=== PATIENT | female | born 1990 | race Caucasian/White ===

== ENCOUNTER 2016-07-17 12:43 | Emergency (ER) | payer OTHER, MEDICAID ==
[~2016-07-17] VITALS: Ht 152.4 cm; Wt 63.5 kg
[~2016-07-17 12:43] MED LIST: NITR-65 PO
--- OUTSIDE RECORDS SUMMARY | 2016-07-17 12:48 | XMS REPORT | Continuity of Care Document ---
Author Author [facility] Organization [facility] Address [facility] [address] [place] [address] Phone Unavailable Support Name Relationship Address Phone SHAHANA RODAS MD Caregiver [phone] [address] SAMANTHA NINA/ALEC HENDRIX Caregiver [address] [place] [address] ALLISON WOLFE Next Of Kin [address] [place] [address] CELL Insurance Providers Payer Name Policy Number Subscriber Name Relationship Provider Care Network [id number] Allison Wolfe 21 Child Advance Directives Directive Response Recorded Date/Time Do you have an Advanced Directive? No 02/15/00 2:34am Advance Directives No 06/10/12 1:51pm Living Will No 06/10/12 1:51pm Health Care Proxy No 05/30/14 7:50pm Power of Aircraft Pilot for Health Care No 06/10/12 1:51pm Organ, Tissue, or Eye Donor No 06/10/12 1:51pm Do you have a signed organ donor card? No 02/15/00 2:34am Problems Medical Problems Problem Onset Date Status boxer's fracture Unknown Active Sinusitis Unknown Active Medications Medication Dose Route Sig Days/Qty Instructions Order Date Discontinued Date Status [ control] 06/10/12 Active Acetaminophen 500 Mg PO 06/10/12 Active Naproxen Mg PO 06/10/12 Active Acetaminophen/Hydrocodone Bitart (Lortab 5-325*) 1 Each PO EVERY 6 HRS NEEDED FOR PAIN 15 Qty 07/20/13 Active Social History No social history. Hospital Discharge Instructions No hospital discharge instructions. Plan of Care No plan of care. Functional Status Query Response Date Recorded Patient Behavior Cooperative Appropriate May 30, 2014 7:55pm Allergies, Adverse Reactions, Alerts Allergen Type Severity Reaction Status Last Updated NO KNOWN DRUG ALLERGIES Allergy Unknown Active 07/20/13 Immunizations Name Given Type Hx Diphtheria, Pertussis, Tetanus Vaccination Up To Date Historical Hx Influenza Vaccination Yes Historical Hx Pneumococcal Vaccination Yes Historical Vital Signs Acute Vital Signs Vital Response Date/Time Temperature (Fahrenheit) 100.4 degrees F (97.6 - 99.5) Temperature Source Temporal Artery Pulse Rate (adult) 87 bpm (60 - 90) Respiratory Rate 20 bpm (12 - 24) Blood Pressure 104/65 mm Hg O2 Sat by Pulse Oximetry 98 % (95 - 100) Oxygen Delivery Method Pain Description Height 5 ft 0 in Weight 130 lb Body Mass Index 25.0 kg/m^2 Results Test Source Date Result Interp. Ref. Range Comments Influenza Type B (Rapid) May 30, 2014 8:49pm Negative - Influenza Type A (Rapid) May 30, 2014 8:49pm Negative - Alanine Aminotransferase (ALT/SGPT) September 15, 2001 8:34am 35 U/L N 30- 65 Albumin September 15, 2001 8:34am 4.6 gm/dL N 3.4-5.0 Aspartate Amino Transf (AST/SGOT) September 15, 2001 8:34am 31 U/L N 15-37 Barbiturates April 22, 2008 10:15am Negative - Basophils # (Auto) June 10, 2012 2:25pm 0.1 K/uL N 0.0-0.2 Basophils (%) (Auto) June 10, 2012 2:25pm 0.9 % N 0.0-1.0 Blood Urea Nitrogen June 10, 2012 2:25pm 9 mg/dL N 7-18 Calcium Level June 10, 2012 2:25pm 9.1 mg/dL N 8.8-10.5 Carbon Dioxide Level June 10, 2012 2:25pm 24.9 mEq/L N 21-32 Chloride Level June 10, 2012 2:25pm 101 mEq/L N 98-107 Creatinine June 10, 2012 2:25pm 1.1 mg/dL H 0.6-1.0 Eosinophils # (Auto) June 10, 2012 2:25pm 0.2 K/uL N 0.0-0.7 Eosinophils (%) (Auto) June 10, 2012 2:25pm 2.8 % H 0.0-2.0 HCG Beta Subunit August 29, 2012 12:18pm 16 IU/ML - 9-130 mIU/ml INDICATES 3-4 WEEKS POST LMP75-2,600 mIU/ml INDICATES 4-5 WEEKS POST LMP 850-20,800 mIU/ml INDICATES 5-6 WEEKS POST LMP 4,000-100,200 mIU/ml INDICATES 6-7 WEEKS POST LMP 11,500-289,000 mIU/ml INDICATES 7-12 WEEKS POST LMP 18,000-137,000 mIU/ml INDICATES 12-16 WEEKS POST LMP 1,400-53,000 mIU/ml INDICATES 16-29 WEEKS POST LMP (2ND TRIMESTER) 940-60,000 mIU/ML INDICATES 29-41 WEEKS (3RD TRIMESTER) Hematocrit June 10, 2012 2:25pm 37.5 % N 37.0-47.0 Hemoglobin June 10, 2012 2:25pm 13.0 gm/dL N 12.0-16.0 Human Chorionic Gonadotropin, Qual September 13, 2012 2:56pm Negative - Lymphocytes # (Auto) June 10, 2012 2:25pm 1.1 K/uL L 1.2-3.4 Lymphocytes (%) (Auto) June 10, 2012 2:25pm 17.7 % L 20.5-51.1 Lymphocytes (Manual) February 15, 2000 2:40am 32.0 % N 25-40 Mean Corpuscular Hemoglobin June 10, 2012 2:25pm 27.3 pg N 27.0- 31.0 Mean Corpuscular Hemoglobin Concent June 10, 2012 2:25pm 34.6 g/dL N 30.0-37.0 Mean Corpuscular Volume June 10, 2012 2:25pm 79.0 fL L 81.0-99.0 Mean Platelet Volume June 10, 2012 2:25pm 8.6 fL N 7.4-10.4 Monocytes # (Auto) June 10, 2012 2:25pm 0.2 K/uL N 0.1-0.6 Monocytes (%) (Auto) June 10, 2012 2:25pm 3.6 % N 1.7-9.3 Monocytes (Manual) February 15, 2000 2:40am 8.0 % N 4-10 Neutrophils February 15, 2000 2:40am 60.0 % N 50-65 Neutrophils # (Auto) June 10, 2012 2:25pm 4.6 K/uL N 2.0-6.9 Neutrophils (%) (Auto) June 10, 2012 2:25pm 75.1 % N 42.2-75.2 Phenobarbital Level February 28, 2009 12:02pm 2 ug/mL L - Detection Limit=2 <2 indicates None Detected Performed At: [facility] [address], [place] [id number] Karolina Cohen MD Phone: [phone] Platelet Count June 10, 2012 2:25pm 261 K/uL N 130-400 Potassium Level June 10, 2012 2:25pm 3.7 mEq/L N 3.5-5.1 Primidone (Mysoline) Level February 28, 2009 12:02pm 3.3 ug/mL L - Detection Limit=0.3 <0.3 indicates None Detected Random Glucose June 10, 2012 2:25pm 167 mg/dL H 70-110 Red Blood Count June 10, 2012 2:25pm 4.75 M/uL N 4.20-5.40 Red Cell Distribution Width June 10, 2012 2:25pm 10.4 % L 11.5-14.5 Sodium Level June 10, 2012 2:25pm 132 mEq/L L 136-145 Thyroid Stimulating Hormone (TSH) September 15, 2001 8:34am 1.36 uIU/ml N 0.47-5.01 Thyroxine (T4) September 15, 2001 8:34am 7.8 UG/DL N 4.8-13.9 Total Alkaline Phosphatase September 15, 2001 8:34am 259 U/L H 50-136 Total Bilirubin September 15, 2001 8:34am 0.38 mg/dL N 0.00-1.00 Total Protein September 15, 2001 8:34am 7.3 gm/dL N 6.4-8.2 Urine Amorphous Sediment April 22, 2008 12:00am Too numerous to cnt. - Urine Amphetamines Screen April 22, 2008 10:15am Negative - Urine Appearance June 10, 2012 3:29pm Clear - Urine Bacteria June 10, 2012 3:29pm Trace H - Urine Benzodiazepines Screen April 22, 2008 10:15am Negative - Urine Bilirubin June 10, 2012 3:29pm Negative - Urine Cocaine Level April 22, 2008 10:15am Negative - Urine Color June 10, 2012 3:29pm Light yellow - Urine Glucose (UA) June 10, 2012 3:29pm Negative mg/dL - Urine HCG, Qualitative June 10, 2012 3:29pm Positive - Urine Ketones June 10, 2012 3:29pm Negative mg/dL - Urine Leukocyte Esterase June 10, 2012 3:29pm Negative - Urine Marijuana (THC) Screen April 22, 2008 10:15am Negative - Urine Nitrate June 10, 2012 3:29pm Negative - Urine Occult Blood June 10, 2012 3:29pm Negative - Urine Opiates Screen April 22, 2008 10:15am Negative - Urine Protein June 10, 2012 3:29pm Negative mg/dL - Urine RBC June 10, 2012 3:29pm Negative /hpf - Urine Specific [place] June 10, 2012 3:29pm 1.010 N 1.010-1.025 Urine Squamous Epithelial Cells June 10, 2012 3:29pm Rare /hpf - Urine Urobilinogen June 10, 2012 3:29pm 0.2 E.U./dL - Urine WBC June 10, 2012 3:29pm 0-1 /hpf - Urine pH June 10, 2012 3:29pm 7.0 - White Blood Count June 10, 2012 2:25pm 6.1 K/uL N 4.8-10.8 Lab Scanned Report July 26, 2010 8:26am LABORATORY RESULTS - SCANNED [id number] - Blood Culture Blood February 15, 2000 2:30am NO GROWTH AFTER 5 DAYS Procedures No known history of procedures. Encounters Encounter Location Date/Time Departed Emergency Room [facility] 05/30/14 7:48pm Recent Diagnosis
[2016-07-17] MEDS ORDERED: NS IV 1000 ML 1,000 ML IV ONE (13:06)
[2016-07-17] MEDS ORDERED: ONDANSETRON 4 MG/2 ML (SDV) Z0FRAN IVP ONE (13:15)
[2016-07-17 13:29] LABS: BASOPHILS % (AUTO) 0 % (0-10); EOSINOPHILS % (AUTO) 0 % (0-10); LYMPHOCYTES # (AUTO) 0.8 X 10^3 (1.0-4.0); LYMPHOCYTES % (AUTO) 7 % (12-44); MEAN CORPUSCULAR HEMOGLOBIN 28 PG (25-34); MEAN CORPUSCULAR HGB CONC 35 G/DL (32-36); MEAN CORPUSCULAR VOLUME 80 FL (80-99); MEAN PLATELET VOLUME 10.8 FL (7.4-10.4); MONOCYTES # (AUTO) 0.4 X 10^3 (0.0-1.0); MONOCYTES % (AUTO) 3 % (0-12); NEUTROPHILS # (AUTO) 11.1 X 10^3 (1.8-7.8); NEUTROPHILS % (AUTO) 90 % (42-75); PLATELET COUNT 288 10^3/uL (130-400); RED BLOOD COUNT 5.31 10^6/uL (4.35-5.85); WHITE BLOOD COUNT 12.3 10^3/uL (4.3-11.0)
[2016-07-17] MEDS ORDERED: NS IV 1000 ML 1,000 ML IV SCH (13:30)
[2016-07-17] MEDS: fentaNYL INJECTION 100 MCG/2 ML AMP IVP PRN ×2 (13:34→15:12)
[2016-07-17 13:46] LABS: ALANINE AMINOTRANSFERASE 16 U/L (0-55); ALBUMIN 4.9 G/DL (3.2-4.5); ANION GAP 16 MMOL/L (5-14); ASPARTATE AMINO TRANSFERASE 21 U/L (5-34); BILIRUBIN,TOTAL 0.7 MG/DL (0.1-1.0); BLOOD UREA NITROGEN 9 MG/DL (7-18); BUN/CREATININE RATIO 11; CALCIUM 10.2 MG/DL (8.5-10.1); CARBON DIOXIDE 20 MMOL/L (21-32); CHLORIDE 106 MMOL/L (98-107); CREATININE SERUM 0.81 MG/DL (0.60-1.30); GFR ESTIMATED > 60; GLUCOSE 98 MG/DL (70-105); LIPASE 28 U/L (8-78); POTASSIUM 4.3 MMOL/L (3.6-5.0); SODIUM 142 MMOL/L (135-145); TOTAL PROTEIN 8.3 G/DL (6.4-8.2)
[2016-07-17 13:47] LABS: NEUTROPHILS % (MANUAL) 87 %
[2016-07-17 13:48] LABS: BAND NEUTROPHILS 2 %; LYMPHOCYTES % (MANUAL) 6 %
[2016-07-17] MEDS ORDERED: fentaNYL INJECTION 100 MCG/2 ML AMP IVP ONE (15:00)
--- NOTE | 2016-07-17 15:16 | ED Abdominal Pain ---
General Chief Complaint: Abdominal/GI Problems Stated Complaint: V/D Nursing Triage Note: Pt reports abd pain and n/v/d since 0400. Sepsis Screen: No Definite Risk Source of Information: Patient, Family Exam Limitations: No Limitations History of Present Illness Time Seen By Provider: 15:13 Initial Comments This 26-year-old white female presents with nausea vomiting diarrhea and diffuse abdominal pain that began approximately 4 o'clock this morning (12 hours ago). The patient had ingested questionable food at a restaurant. The patient has had no associated headache, stiff neck, sore throat, productive cough or shortness of breath, palpitations or chest pain. The patient has had no similar episodes in the past. The patient has not had close contacts with a viral illness recently. Allergies and Home Medications Allergies Coded Allergies: No Known Drug Allergies (Unverified , 04/17/15) Home Medications No Active Prescriptions or Reported Meds Review of Systems Constitutional: chills malaise EENTM: No Blurred Vision Respiratory: Denies Cough Gastrointestinal: Abdominal Pain Diarrhea (diffuse and poorly localized diarrhea without blood) Nausea (without blood) Vomiting Genitourinary: Denies Burning, Denies Frequency Musculoskeletal: No back pain Skin: No change in color, No rash Psychiatric/Neurological: No Symptoms Reported Endocrine: No Symptoms Reported Hematologic/Lymphatic: No Symptoms Reported Past Qyjtzja-Pixrez-Djweua Hx Patient Social History Alcohol Use: Denies Use Recreational Drug Use: No Smoking Status: Never a Smoker Recent Foreign Travel: No Contact w/Someone Who Travel: No Recent Infectious Disease Expo: No Recent Hopitalizations: No Immunizations Up To Date Tetanus Booster (TDap): Unknown Seasonal Allergies Seasonal Allergies: No Surgeries HX Surgeries: Yes (D&C 06/2014, R HAND FX/ORIF, BONE SPURS REMOVED FROM ANKLE, WISDOM TEETH) Surgeries: Abdominal, Gallbladder, Orthopedic Respiratory Hx Respiratory Disorders: No Cardiovascular Hx Cardiac Disorders: No Neurological Hx Neurological Disorders: No Reproductive System Hx Reproductive Disorders: No Sexually Transmitted Disease: No HIV/AIDS: No Genitourinary Hx Genitourinary Disorders: No Genitourinary Disorders: Bladder Infection Gastrointestinal Hx Gastrointestinal Disorders: No Musculoskeletal Hx Musculoskeletal Disorders: No Endocrine Hx Endocrine Disorders: No HEENT HX ENT Disorders: No Loss of Vision: Denies Hearing Impairment: Denies Cancer Hx Cancer: No Psychosocial Hx Psychiatric Problems: No Integumentary HX Skin/Integumentary Disorder: No Blood Transfusions Hx Blood Disorders: No Reviewed Nursing Assessment Reviewed/Agree w Nursing PMH: Yes Family Medical History Significant Family History: No Pertinent Family Hx Physical Exam Vital Signs VS - Last 72 Hours, by Label 07/17/16 12:54 Temp 98.3 Pulse 67 Resp 18 B/P 137/101 Pulse Ox 96 O2 Delivery Room Air Capillary Refill : Less Than 3 Seconds General Appearance: WD/WN mild distress HEENT: normal ENT inspection Neck: normal inspection Respiratory: chest non-tender lungs clear normal breath sounds Cardiovascular: regular rate, rhythm Extremities: normal range of motion normal inspection Back: normal inspection Neurologic/Psychiatric: no motor/sensory deficits alert Skin: normal color warm/dry Progress/Results/Core Measures Results/Orders Lab Results Laboratory Tests Test 07/17/16 13:20 Range/Units Alanine Aminotransferase (ALT/SGPT) 16 0-55 U/L Albumin 4.9 H 3.2-4.5 G/DL Alkaline Phosphatase 119 40-136 U/L Anion Gap 16 H 5-14 MMOL/L Aspartate Amino Transf (AST/SGOT) 21 5-34 U/L BUN/Creatinine Ratio 11 Band Neutrophils 2 % Basophils # (Auto) 0.0 0.0-0.1 10^3/uL Basophils (%) (Auto) 0 0-10 % Blood Morphology Comment NORMAL Blood Urea Nitrogen 9 7-18 MG/DL Calcium Level 10.2 H 8.5-10.1 MG/DL Carbon Dioxide Level 20 L 21-32 MMOL/L Chloride Level 106 98-107 MMOL/L Creatinine 0.81 0.60-1.30 MG/DL Dohle Bodies SLIGHT Eosinophils # (Auto) 0.0 0.0-0.3 10^3/uL Eosinophils (%) (Auto) 0 0-10 % Estimat Glomerular Filtration Rate > 60 Glucose Level 98 70-105 MG/DL Hematocrit 43 35-52 % Hemoglobin 15.1 11.5-16.0 G/DL Hypersegmented Neutrophils SLIGHT Lipase 28 8-78 U/L Lymphocytes # (Auto) 0.8 L 1.0-4.0 X 10^3 Lymphocytes % (Manual) 6 % Lymphocytes (%) (Auto) 7 L 12-44 % Mean Corpuscular Hemoglobin 28 25-34 PG Mean Corpuscular Hemoglobin Concent 35 32-36 G/DL Mean Corpuscular Volume 80 80-99 FL Mean Platelet Volume 10.8 H 7.4-10.4 FL Monocytes # (Auto) 0.4 0.0-1.0 X 10^3 Monocytes % (Manual) 5 % Monocytes (%) (Auto) 3 0-12 % Neutrophils # (Auto) 11.1 H 1.8-7.8 X 10^3 Neutrophils % (Manual) 87 % Neutrophils (%) (Auto) 90 H 42-75 % Platelet Count 288 130-400 10^3/uL Potassium Level 4.3 3.6-5.0 MMOL/L Red Blood Count 5.31 4.35-5.85 10^6/uL Red Cell Distribution Width 13.0 10.0-14.5 % Sodium Level 142 135-145 MMOL/L Total Bilirubin 0.7 0.1-1.0 MG/DL Total Protein 8.3 H 6.4-8.2 G/DL White Blood Count 12.3 H 4.3-11.0 10^3/uL My Orders Orders-YE MARTÍNEZ MD Ondansetron Injection (Zofran Injectio (07/17/16 13:15) Saline Lock/Iv-Start (07/17/16 13:06) Ns Iv 1000 Ml (Sodium Chloride 0.9%) (07/17/16 13:06) Cbc With Automated Diff (07/17/16 13:06) Comprehensive Metabolic Panel (07/17/16 13:06) Lipase (07/17/16 13:06) Hcg,Qualitative Urine (07/17/16 13:06) Ua Culture If Indicated (07/17/16 13:06) Fentanyl Injection (Sublimaze Injection (07/17/16 13:30) Ns Iv 1000 Ml (Sodium Chloride 0.9%) (07/17/16 13:30) Manual Differential (07/17/16 13:20) Fentanyl Injection (Sublimaze Injection (07/17/16 15:00) Medications Given in ED Current Medications Medications Dose Ordered Sig/Cary Route Start Time Stop Time Status Last Admin Dose Admin Fentanyl Citrate 50 mcg ONCE ONCE IVP 07/17/16 15:00 07/17/16 15:01 DC 07/17/16 15:12 50 MCG Fentanyl Citrate 50 mcg ONCE PRN IVP 07/17/16 13:30 07/17/16 13:34 50 MCG Ondansetron HCl 4 mg 4 mg ONCE ONCE IVP 07/17/16 13:15 07/17/16 13:16 DC 07/17/16 13:21 4 MG Sodium Chloride 1,000 ml @ 0 mls/hr Q0M ONCE IV 07/17/16 13:06 07/17/16 13:09 DC 07/17/16 13:21 999 MLS/HR Vital Signs/I&O Vital Sign - Last 12Hours 07/17/16 12:54 Temp 98.3 Pulse 67 Resp 18 B/P 137/101 Pulse Ox 96 O2 Delivery Room Air Blood Pressure Mean: 113 Progress Note : Time: 15:17 Progress Note The patient's laboratory evaluation demonstrated a slight leukocytosis. The patient's lipase and complete metabolic panel was normal. Treatment course patient improved on fentanyl, Zofran, and IV fluids. After rehydration the patient was able to take liquids orally. Next Treatment course was agreed upon of clear liquids tonight, Zofran for nausea, and Vicodin for pain. Patient was invited to return the emergency department if she had any further problems or questions. Departure Impression Impression: Primary Impression: Food poisoning Qualified Code: T62.91XA - Toxic effect of unspecified noxious substance eaten as food, accidental (unintentional), initial encounter Disposition: 01 HOME, SELF-CARE Condition: Improved Departure-Patient Inst. Decision time for Depature: 15:19 Referrals: [facility],LOCAL PHYSICIAN (PCP) Primary Care Physician Patient Instructions: Food Poisoning (DC) Add. Discharge Instructions: Clinical tonight. Vicodin for pain. Zofran for nausea. Return of any problems. Follow-up with your caregiver choice or through the health tomorrow if your symptoms are not resolved. All discharge instructions reviewed with patient and/or family. Voiced understanding. Scripts Ondansetron (Zofran Odt)4 Mg Tab.rapdis4 Mg PO Q3HR PRN VOMITING #20 TAB Prov:YE MARTÍNEZ MD 07/17/16 Hydrocodone/Acetaminophen ([place] 5-325 Tablet)1 Each Tablet1-2 Each PO Q4H PRN PAIN #20 TAB Prov:YE MARTÍNEZ MD 07/17/16 YE MARTÍNEZ MD Jul 17, 2016 15:16
[2016-07-17] MEDS ORDERED: ONDA4TAB8 PO (15:21)
[2016-07-17] MEDS ORDERED: HYDR-757 PO (15:21)
[2016-07-17 15:34] VITALS: BP 125/90
== END 2016-07-17 15:34 | disposition home or self-care (01) ==
LOC: EDUNIT# 12:43 → ER 12:44
DX: T62.91XA Toxic effect of unspecified noxious substance eaten as food, accidental (unintentional), initial encounter (principal)
CPT/HCPCS: 36415; 80053; 83690; 85007; 85027; 96361; 96374; 96375; 96376

== ENCOUNTER 2016-08-11 05:47 | Outpatient (CLI) | payer OTHER, MEDICAID ==
[~2016-08-11] VITALS: Ht 152.4 cm; Wt 63.5 kg
[~2016-08-11 05:47] MED LIST changes: +HYDR-757 PO; +ONDA4TAB8 PO
--- OUTSIDE RECORDS SUMMARY | 2016-08-11 05:51 | XMS REPORT | Continuity of Care Document ---
Author Author [facility] Organization [facility] Address [facility] [address] [place] [address] Phone Unavailable Support Name Relationship Address Phone SHAHANA RODAS MD Caregiver [address] [address] SAMANTHA NINA/ALEC HENDRIX Caregiver [address] [place] [address] ALLISON WOLFE Next Of Kin [address] [place] [address] CELL Insurance Providers Payer Name Policy Number Subscriber Name Relationship Provider Care Network [id number] Allison Wolfe 21 Child Advance Directives Directive Response Recorded Date/Time Do you have an Advanced Directive? No 02/15/00 2:34am Advance Directives No 06/10/12 1:51pm Living Will No 06/10/12 1:51pm Health Care Proxy No 05/30/14 7:50pm Power of Senior Research Scientist for Health Care No 06/10/12 1:51pm Organ, [...] indicates None Detected Performed At: [facility] [address] [place], [place] [id number] Karolina Cohen MD Phone: [phone] Platelet Count June 10, 2012 2:25pm 261 [...] 2012 3:29pm Negative /hpf - Urine Specific [place] June 10, 2012 3:29pm 1.010 N 1.010-1.025 [...] 26, 2010 8:26am LABORATORY RESULTS - SCANNED [id number] - Blood Culture Blood February 15, 2000 2:30am NO GROWTH AFTER 5 DAYS Procedures No known history of procedures. Encounters Encounter Location Date/Time Departed Emergency Room [facility] 05/30/14 7:48pm Recent Diagnosis
[2016-08-11] MEDS ORDERED: NORG1TAB15 PO (15:43)
== END 2016-08-11 15:48 ==
LOC: PREOP 05:47
PROVIDERS: ATTEND Surgery
DX: Z01.818 Encounter for other preprocedural examination (principal); R10.9 Unspecified abdominal pain

== ENCOUNTER 2016-08-16 08:23 | Day surgery (SDC) | payer OTHER, MEDICAID ==
[~2016-08-16] VITALS: Ht 152.4 cm; Wt 63.5 kg
[~2016-08-16 08:23] MED LIST changes: +NORG1TAB15 PO
--- OUTSIDE RECORDS SUMMARY | 2016-08-16 08:26 | XMS REPORT | Continuity of Care Document ---
Author Author [facility] Organization [facility] Address [facility] [address] [place] [address] Phone Unavailable Support Name Relationship Address Phone SHAHANA RODAS MD Caregiver [address] [address] SAMANTHA NINA/ALEC HENDRIX Caregiver [address] [place] [address] ALLISON WOLFE Next Of Kin [address] [place] [address] CELL Insurance Providers Payer Name Policy Number Subscriber Name Relationship Provider Care Network [id number] Allison Wolfe 21 Child Advance Directives Directive Response Recorded Date/Time Do you have an Advanced Directive? No 02/15/00 2:34am Advance Directives No 06/10/12 1:51pm Living Will No 06/10/12 1:51pm Health Care Proxy No 05/30/14 7:50pm Power of Ship'S Engineer for Health Care No 06/10/12 1:51pm Organ, [...] indicates None Detected Performed At: [facility] [address] [place], [place] [id number] Karolina Cohen MD Phone: [phone] Platelet Count June 10, 2012 2:25pm 261 [...] 2012 3:29pm Negative /hpf - Urine Specific [place] June 10, 2012 3:29pm 1.010 N 1.010-1.025 [...] 26, 2010 8:26am LABORATORY RESULTS - SCANNED [id number] - Blood Culture Blood February 15, 2000 2:30am NO GROWTH AFTER 5 DAYS Procedures No known history of procedures. Encounters Encounter Location Date/Time Departed Emergency Room [facility] 05/30/14 7:48pm Recent Diagnosis
--- OUTSIDE RECORDS SUMMARY | 2016-08-16 08:27 | XMS REPORT | Continuity of Care Document ---
Author Author [facility] Organization [facility] Address [facility] [address] [place] [address] Phone Unavailable Support Name Relationship Address Phone SHAHANA RODAS MD Caregiver [address] [address] SAMANTHA NINA/ALEC HENDRIX Caregiver [address] [place] [address] ALLISON WOLFE Next Of Kin [address] [place] [address] CELL Insurance Providers Payer Name Policy Number Subscriber Name Relationship Provider Care Network [id number] Allison Wolfe 21 Child Advance Directives Directive Response Recorded Date/Time Do you have an Advanced Directive? No 02/15/00 2:34am Advance Directives No 06/10/12 1:51pm Living Will No 06/10/12 1:51pm Health Care Proxy No 05/30/14 7:50pm Power of Fast Foods Worker for Health Care No 06/10/12 1:51pm Organ, [...] indicates None Detected Performed At: [facility] [address] [place], [place] [id number] Karolina Cohen MD Phone: [phone] Platelet Count June 10, 2012 2:25pm 261 [...] 2012 3:29pm Negative /hpf - Urine Specific [place] June 10, 2012 3:29pm 1.010 N 1.010-1.025 [...] 26, 2010 8:26am LABORATORY RESULTS - SCANNED [id number] - Blood Culture Blood February 15, 2000 2:30am NO GROWTH AFTER 5 DAYS Procedures No known history of procedures. Encounters Encounter Location Date/Time Departed Emergency Room [facility] 05/30/14 7:48pm Recent Diagnosis
[2016-08-16] MEDS ORDERED: NS IV 1000 ML 1,000 ML IV STA (08:34)
[2016-08-16] MEDS ORDERED: HURRICAINE EXT TUBE (BENZOCAINE) XX PRN (08:45)
[2016-08-16] MEDS ORDERED: proPOfol 200 MG/20 ML (DIPRIVAN) VIAL IV ONE (08:52)
[2016-08-16] MEDS ORDERED: MIDAZOLAM 2 MG/2 ML (VERSED) VIAL ONE (08:52)
[2016-08-16 08:55] VITALS: BP 117/79
--- NOTE | 2016-08-16 09:36 | Progress Note-Pre Operative ---
Pre-Operative Progress Note H&P Reviewed The H&P was reviewed, patient examined and no changes noted. Date H&P Reviewed: Aug 16, 2016 Time H&P Reviewed: 09:34 Pre-Operative Diagnosis: Melena, heartburn ABBIE GIBBONS DO Aug 16, 2016 09:36
[2016-08-16 10:12] LABS: BILIRUBIN,URINE NEGATIVE (NEGATIVE); KETONES,URINE NEGATIVE (NEGATIVE); LEUKOCYTE ESTERASE ,URINE 1+ (NEGATIVE); NITRITE,URINE NEGATIVE (NEGATIVE); PH,URINE 5 (5-9); PROTEIN,URINE 2+ (NEGATIVE); UROBILINOGEN,URINE NORMAL (NORMAL)
--- NOTE | 2016-08-16 10:15 | Progress Note-Post Operative ---
Post-Operative Progess Note Quality Assurance Qa Lab Analyst none Pre-Operative Diagnosis Melena, heartburn Post-Operative Diagnosis Same plus internal hemorrhoids Post-Op Procedure Note Date of Procedure: Aug 16, 2016 Name of Procedure: 1. EGD with bx 2. colonoscopy Anesthesia Type iv sedation Estimated blood loss (mL): scant Specimen(s) collected antral bx ABBIE GIBBONS DO Aug 16, 2016 10:15
--- NOTE | 2016-08-16 10:17 | Endoscopy Discharge Instruct ---
Findings Findings 1.: Gastritis 2.: Internal Hemorrhoids Discharge Instructions - Activity: You might feel a little sleepy until tomorrow. This is due to the medicine you received to relax you. Until tomorrow, you should: NOT drive a car, operate machinery or power tools. NOT drink any alcoholic beverages. NOT make any important decisions or sign importortant papers. Do not return to work until tomorrow, unless otherwise instructed. Resume previous activities tomorrow. Diet: Start by taking liquids. If you tolerate liquids, advance to solid food. Instructions: 1.: Reflux Diet 2.: High Fiber Diet Notify Physician - If you experience excessive bleeding, unusual abdominal pain, fever, or chest pain, contact your doctor immediately. Phone number [phone] Follow-Up: Follow Up: Weeks (one) - I have received and understand the above instructions and will call my doctor if I have any further questions. Patient Signature Date Nurse Signature Other (Relationship) ABBIE GIBBONS DO Aug 16, 2016 10:17
[2016-08-16 10:30] VITALS: BP 134/83
[2016-08-16] MEDS ORDERED: ONDANSETRON 4 MG/2 ML (SDV) Z0FRAN ONE (10:35)
[2016-08-16 11:00] VITALS: BP 111/76
[2016-08-16 11:25] VITALS: BP 111/76
--- NOTE | 2016-08-17 10:17 | PROCEDURE REPORT ---
PROCEDURE PHYSICIAN: ABBIE RENE DATE OF PROCEDURE: 08/16/2016 PREOPERATIVE DIAGNOSES: 1. Melena. 2. Gastritis. POSTOPERATIVE DIAGNOSIS: 1. Melena. 2. Gastritis. 3. Internal hemorrhoids. PROCEDURES: 1. EGD with biopsy. 2. Colonoscopy. SURGEON: Dr. Rene RELAY DISPATCHER: None. ANESTHESIA: IV sedation by WHOLESALE DIAMOND BROKER. SPECIMENS: Antral biopsy. BLOOD LOSS: Scant. FLUIDS: Minimal. POSTOPERATIVE CONDITION: Stable. INDICATION FOR THE PROCEDURE: The patient is a 26-year-old female who had seen some melena. She called it dark tarry stools maybe with a hint of maroon and was also having some complaints of nausea, abdominal pain, possible gastritis, needed a work-up. FINDINGS: The patient has very minimal erythema in the stomach possibly a small hiatal hernia and but no changes at the GE junction and no changes in the Z line and in the colon, she only had some minimal internal hemorrhoids with nothing else seen. PROCEDURE NOTE: After informed consent was obtained, the patient brought to the endoscopy suite, placed in the left lateral position. She was administered IV sedation by the WHOLESALE DIAMOND BROKER and vitals were monitored by the WHOLESALE DIAMOND BROKER. Gastroscope was inserted down the mouth passed oropharynx into the esophagus and then down into the stomach. Minimal erythema in the stomach. Biopsy was done of the antrum. I was able to push into the small intestine. Did not really see any erythema here. Retroflex in the in the stomach to look at the cardia. Saw what looked like possibly a small hiatal hernia and then slowly withdrew the scope. Looked in the stomach up into the GE junction in this looked okay. Then up the esophagus and out the mouth. Then switched scopes and started the colonoscopy, pushed the scope up the rectum to about 150 cm. It went all the way to the cecum. Took a picture of the appendiceal orifice, noted the ileocecal valve and then able to get into the first portion of the terminal ileum, looked normal. Then slowly withdrew the scope, insufflating, looked circumferential campos, looked into the cecum, up the ascending colon to the hepatic flexure and then down the transverse colon splenic flexure into the descending colon and then down in the sigmoid and into the rectum, retroflexed in the rectal vault. Saw some internal hemorrhoids, probably grade I not quite grade 2. Did not see any ulcerations, inflammation or any else in the colon. The scope was then removed. The patient tolerated the procedure and she was transferred to recovery room in stable condition. Job ID: [id number] Dictated Date: 08/16/2016 10:23:44 Appeals Representative Date: 08/17/2016 10:01:12 / moraima
== END 2016-08-16 11:15 | disposition home or self-care (01) ==
LOC: ENDO 08:23
PROVIDERS: ATTEND Surgery
DX: K92.1 Melena (principal); K64.8 Other hemorrhoids; K29.70 Gastritis, unspecified, without bleeding
CPT/HCPCS: 81000; 84703; 88305

== ENCOUNTER → 2016-10-17 | Outpatient (CLI) | payer OTHER, MEDICAID | LOC: LAB 15:51 | PROVIDERS: ATTEND Nurse Practitioner Family | DX: R53.83 Other fatigue (principal); G43.909 Migraine, unspecified, not intractable, without status migrainosus; H53.2 Diplopia; F32.9 Major depressive disorder, single episode, unspecified | CPT/HCPCS: 36415; 86038; 86039 ==

== ENCOUNTER 2017-11-13 09:45 | Emergency (ER) | payer MEDICAID, OTHER ==
[~2017-11-13] VITALS: Ht 152.4 cm; Wt 61.2 kg
--- OUTSIDE RECORDS SUMMARY | 2017-11-13 09:52 | XMS REPORT ---
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 10470510 ALLERGIES No Information ENCOUNTERS Encounter Location Date Diagnosis [place] [id number] [address] Nov, [facility] [address] [address] Aug, Plantar fasciitis of left foot M72.2 [facility] [address] [address] Jun, [facility] [address] [address] May, [facility] [address] [address] May, Vaginal itching L29.8 and Vaginal [place] B37.3 [facility] [address] [address] Apr, Intractable migraine without aura and with status migrainosus G43.011 and Chronic fatigue R53.82 [facility] [address] [address] Dec, [facility] [address] [address] Nov, [facility] [address] [place] [id number] [address] Sep, Encounter for routine adult health examination with abnormal findings Z00.01 ; Chronic fatigue R53.82 and Nausea R11.0 [facility] [address] [id number] [address] Sep, Encounter for routine adult health examination with abnormal findings Z00.01 ; Chronic fatigue R53.82 and Nausea R11.0 [facility] [address] [id number] [id number] Sep, Dental examination Z01.20 [facility] [address] [id number] [address] Aug, [facility] [address] [id number] [address] Feb, Post depression F53 IMMUNIZATIONS No Known Immunizations SOCIAL HISTORY Never Assessed REASON FOR VISIT eye exam PLAN OF CARE VITAL SIGNS MEDICATIONS Unknown Medications RESULTS No Results PROCEDURES No Known procedures INSTRUCTIONS MEDICATIONS ADMINISTERED No Known Medications MEDICAL (GENERAL) HISTORY Type Description Date Medical History Anxiety Surgical History dilatation and curettage 2014 Surgical History cholecystectomy MCAPRN 07/2013 Surgical History fractured 5th metacarpal w/ plate placement MCAPRN 07/2013 Hospitalization History childbirth only
--- OUTSIDE RECORDS SUMMARY | 2017-11-13 09:52 | XMS REPORT ---
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
--- OUTSIDE RECORDS SUMMARY | 2017-11-13 09:52 | XMS REPORT ---
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 94648657 ALLERGIES No Known Allergies ENCOUNTERS Encounter Location Date Diagnosis [place] [address] [address] Nov, [place] [address] [address] Aug, Plantar fasciitis of left foot M72.2 [facility] [address] [address] Jun, [facility] [address] [address] May, [facility] [address] [address] May, Vaginal itching L29.8 and Vaginal [place] B37.3 [place] [address] [address] Apr, Intractable migraine without aura and with status migrainosus G43.011 and Chronic fatigue R53.82 [facility] [address] [address] Dec, [facility] [address] [address] Nov, [facility] [address] [place] [address] [id number] [address] Sep, Encounter for routine adult health examination with abnormal findings Z00.01 ; Chronic fatigue R53.82 and Nausea R11.0 [facility] [address] [place] [id number], [place] [address] Sep, Encounter for routine adult health examination with abnormal findings Z00.01 ; Chronic fatigue R53.82 and Nausea R11.0 [facility] [address] [id number] [id number] Sep, Dental examination Z01.20 [facility] [id number], [place] [address] Aug, [facility] [address] [id number] [address] Feb, Post depression F53 IMMUNIZATIONS No Known Immunizations SOCIAL HISTORY Never Assessed REASON FOR VISIT PAIN PLAN OF CARE Activity Details Follow Up 1 Week Reason:Taoism #31 VITAL SIGNS Blood pressure systolic 133 mmHg 2016-09-22 Blood pressure diastolic 74 mmHg 2016-09-22 MEDICATIONS Unknown Medications RESULTS No Results PROCEDURES Procedure Date Ordered Result Body Site LTD ORAL EVALUATION - PROBLEM FOCUS September 22, 2016 PANORAMIC FILM SEE ALSO CODE 53102 September 22, 2016 INSTRUCTIONS MEDICATIONS ADMINISTERED No Known Medications MEDICAL (GENERAL) HISTORY Type Description Date Medical History Anxiety Surgical History dilatation and curettage 2014 Surgical History cholecystectomy MCAPRN 07/2013 Surgical History fractured 5th metacarpal w/ plate placement MCAPRN 07/2013 Hospitalization History childbirth only
--- OUTSIDE RECORDS SUMMARY | 2017-11-13 09:52 | XMS REPORT ---
Author Author Sammi Nicole Organization [facility] Address [address] [place], [place] [address] Care Team Providers Care Storage Garage Manager Name Role Phone Sammi Nicole PCP Unavailable Murch, Susana Unavailable Unavailable Allergies and Adverse Reactions Name Reaction Notes NO KNOWN DRUG ALLERGIES Plan of Treatment Planned Activity Comments Planned Date Planned Time Plan/Goal MRI BRAIN INC STEM W/WO CONTRAST 10/18/2016 12:00 AM DEBORAH W/REFLEX 10/14/2016 12:00 AM Medications Active Name Start Date Estimated Completion Date SIG Comments Tri-Sprintec (28) 0.18/0.215/0.25 mg-35 mcg (28) oral tablet take 1 tablet by oral route once daily citalopram 20 mg oral tablet 10/14/2016 04/12/2017 take 1 tablet (20 mg) by oral route once daily for 30 days rizatriptan 10 mg oral tablet 10/14/2016 01/12/2017 take 1 tablet by oral route BID 2 hours apart max 2 doses/24hr Vitamin D3 5,000 unit oral tablet 10/14/2016 11/18/2017 take 1 tablet by oral route daily for 100 days Problem List Not available. Vital Signs Date Time BP-Sys(mm[Hg] BP-Dede(mm[Hg]) HR(bpm) RR(rpm) Temp WT HT HC BMI BSA BMI Percentile O2 Sat(%) 10/14/2016 2:42:00 PM 132 mmHg 82 mmHg 56 bpm 18 rpm 97.9 F 137.5 lbs 60 in 26.85 kg/m2 1.62 m2 98 % 01/16/2015 3:07:00 PM 110 mmHg 50 mmHg 73 bpm 16 rpm 99.2 F 132 lbs 60 in 25.7792 kg/m 1.5921 m 99 % Social History Name Description Comments Tobacco Never smoker Alcohol Use - Occasional Caffeine Current every day Exercise Light History of Procedures Date Ordered Description Order Status 01/16/2015 12:00 AM CHORIONIC GONADOTROPIN ASSAY Reviewed Results Summary Not available. History Of Immunizations Not available. History of Past Illness Name Date of Onset Comments Allergic rhinitis Asthma SCREENING PAP SMEAR jun 2014 normal Amenorrhea Jan 16 2015 3:09PM Fatigue Oct 14 2016 2:52PM Anxiety Oct 14 2016 2:52PM Depression Oct 14 2016 2:52PM Migraine Oct 14 2016 2:52PM Vitamin D deficiency Oct 14 2016 2:52PM Double vision with both eyes open Oct 14 2016 2:52PM Wrist disorder Oct 14 2016 2:52PM Memory loss of unknown cause Oct 14 2016 2:52PM Vision changes Oct 14 2016 2:52PM Payers Insurance Name Company Name Plan Name Plan Number Policy Number Policy Group Number Start Date Employee Benefit Management Employee Benefit Management [id number] N /A Wppa Wppa [id number] June History of Encounters Visit Date Visit Type Provider 10/14/2016 Office visit Sammi Nicole APRN 01/16/2015 Office visit Sammi Nicole APRN
--- OUTSIDE RECORDS SUMMARY | 2017-11-13 09:52 | XMS REPORT ---
Author Author Sammi Nicole Organization [facility] Address [address] [place], [place] [address] Care Team Providers Care Labor Economist Name Role Phone Sammi Nicole PCP Unavailable Murch, Susana Unavailable Unavailable Allergies and Adverse Reactions Name Reaction Notes NO KNOWN DRUG ALLERGIES Plan of Treatment Planned Activity Comments Planned Date Planned Time Plan/Goal MRI BRAIN INC STEM W/WO CONTRAST 10/14/2016 12:00 AM DEBORAH W/REFLEX 10/14/2016 12:00 AM [...] 2:52PM Wrist disorder Oct 14 2016 2:52PM Payers Insurance Name Company Name Plan Name Plan Number Policy Number Policy Group Number Start Date Employee Benefit Management Employee Benefit Management [id number] N /A Wppa Wppa [id number] June History of Encounters Visit Date Visit Type Provider 10/14/2016 Office visit Sammi Nicole APRN 01/16/2015 Office visit Sammi Nicole APRN
--- OUTSIDE RECORDS SUMMARY | 2017-11-13 09:53 | XMS REPORT | Continuity of Care Document ---
Author Author [facility] Organization [facility] Address Unknown Phone Unavailable Allergies Active Description Code Type Severity Reaction Onset Reported/Identified Relationship to Patient Clinical Status Yes NKDA N/A N/A Yes NKDA N/A N/A Yes NKDA N/A N/A Yes No Known Allergies Drug Allergy N/A N/A 10/25/2012 Yes No Known Drug Allergies Drug Allergy N/A N/A 10/25/2012 Yes No Known Food Allergies Food Allergy N/A N/A 10/25/2012 Yes No Known Drug Allergies [id number] Drug Allergy Unknown N/A 08/11/2016 Medications Medication Packaging Start Date Stop Date Route Dosage Sig AMOXICILLIN ORAL 05/29/2014 06/08/2014 ORAL 4040 twice daily PREDNISONE 10/18/2014 ORAL 1515 three times daily CLARITIN 10/18/2014 ORAL CILOXAN 10/18/2014 Ophthalmic 4040 four times daily DEPO-PROVERA Intramuscular 2015 Intramuscular 11 every 3 months AMEE-D ALLERGY T CONGESTION ORAL 01/04/2016 ORAL 3030 daily Problems Date Dx Coded Attending Type Code Diagnosis Diagnosed By 09/19/2012 Leona Holder MD Final 620.0 OVARIAN FOLLICULAR CYST 09/19/2012 Leona Holder MD Admitting 620.2 OVARIAN CYST NEC NOS 10/26/2012 Leona Holder MD Final 625.9 FE GENITAL SYMPTOMS NOS 04/17/2015 ELIE SANTANA DO Ot 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 IN 04/17/2015 ELIE SANTANA DO Ot Z3A.19 19 WEEKS GESTATION OF 07/17/2015 POLI PRETTY, PUNEET Amado Ot O60.03 LABOR WITHOUT DELIVERY, THIRD TR 07/17/2015 PUNEET ASHTON MD Ot Z3A.32 32 WEEKS GESTATION OF 07/17/2016 TANYA PRETTY, YE Jensen Ot R11.2 NAUSEA WITH VOMITING, UNSPECIFIED 07/17/2016 TANYA PRETTY, YE Camila Ot T62.91XA TOXIC EFFECT OF UNSP NOXIOUS SUB EATEN A 07/18/2016 TANYA PRETTY, YE Jensen Ot R11.2 NAUSEA WITH VOMITING, UNSPECIFIED 07/18/2016 TANYA PRETTY, YE Camila Ot T62.91XA TOXIC EFFECT OF UNSP NOXIOUS SUB EATEN A 08/11/2016 DELMAN DO, ABBIE B Ot R10.9 UNSPECIFIED ABDOMINAL PAIN 08/11/2016 DELMAN DO, ABBIE B Ot Z01.818 ENCOUNTER FOR OTHER PREPROCEDURAL EXAMIN 08/12/2016 DELMAN DO, ABBIE B Ot R10.9 UNSPECIFIED ABDOMINAL PAIN 08/12/2016 DELMAN DO, ABBIE B Ot Z01.818 ENCOUNTER FOR OTHER PREPROCEDURAL EXAMIN 08/16/2016 DELMAN DO, ABBIE B Ot K29.70 GASTRITIS, UNSPECIFIED, WITHOUT BLEEDING 08/16/2016 DELMAN DO, ABBIE B Ot K64.8 OTHER HEMORRHOIDS 08/16/2016 DELMAN DO, ABBIE B Ot K92.1 MELENA 08/17/2016 DELMAN DO, ABBIE B Ot R10.9 UNSPECIFIED ABDOMINAL PAIN 08/17/2016 DELMAN DO, ABBIE B Ot Z01.818 ENCOUNTER FOR OTHER PREPROCEDURAL EXAMIN 08/17/2016 DELMAN DO, ABBIE B Ot K29.70 GASTRITIS, UNSPECIFIED, WITHOUT BLEEDING 08/17/2016 DELMAN DO, ABBIE B Ot K64.8 OTHER HEMORRHOIDS 08/17/2016 DELMAN DO, ABBIE B Ot K92.1 MELENA 02/03/2017 SAMANTHA NICOLE Ot F32.9 MAJOR DEPRESSIVE DISORDER, SINGLE EPISOD 02/03/2017 SAMANTHA NICOLE Ot G43.909 MIGRAINE, UNSP, NOT INTRACTABLE, WITHOUT 02/03/2017 SAMANTHA NICOLE Ot H53.2 DIPLOPIA 02/03/2017 SAMANTHA NICOLE Ot R53.83 OTHER FATIGUE 02/03/2017 SAMANTHA NICOLE Ot F32.9 MAJOR DEPRESSIVE DISORDER, SINGLE EPISOD 02/03/2017 SAMANTHA NICOLE Ot G43.909 MIGRAINE, UNSP, NOT INTRACTABLE, WITHOUT 02/03/2017 SAMANTHA NICOLE Ot H53.2 DIPLOPIA 02/03/2017 SAMANTHA NICOLE Ot R53.83 OTHER FATIGUE Procedures Code Description [place] [address] JACQUI DEVINFELIPE NINO Holder MD, Leona Rosario 10/26/2012 Results Test Result Range Complete blood count (CBC) with automated white blood cell (WBC) differential - 07/17/16 13:20 Blood leukocytes automated count (number/volume) 12.3 10*3/uL 4.3-11.0 Blood erythrocytes automated count (number/volume) 5.31 10*6/uL 4.35-5.85 Venous blood hemoglobin measurement (mass/volume) 15.1 g/dL 11.5-16.0 Blood hematocrit (volume fraction) 43 % 35-52 Automated erythrocyte mean corpuscular volume 80 [foz_us] 80-99 Automated erythrocyte mean corpuscular hemoglobin (mass per erythrocyte) 28 pg 25-34 Automated erythrocyte mean corpuscular hemoglobin concentration measurement ( mass/volume) 35 g/dL 32-36 Automated erythrocyte distribution width ratio 13.0 % 10.0-14.5 Automated blood platelet count (count/volume) 288 10*3/uL 130-400 Automated blood platelet mean volume measurement 10.8 [foz_us] 7.4-10.4 Automated blood neutrophils/100 leukocytes 90 % 42-75 Automated blood lymphocytes/100 leukocytes 7 % 12-44 Blood monocytes/100 leukocytes 3 % 0-12 Automated blood eosinophils/100 leukocytes 0 % 0-10 Automated blood basophils/100 leukocytes 0 % 0-10 Blood neutrophils automated count (number/volume) 11.1 10*3 1.8-7.8 Blood lymphocytes automated count (number/volume) 0.8 10*3 1.0-4.0 Blood monocytes automated count (number/volume) 0.4 10*3 0.0-1.0 Automated eosinophil count 0.0 10*3/uL 0.0-0.3 Automated blood basophil count (count/volume) 0.0 10*3/uL 0.0-0.1 Comprehensive metabolic panel - 07/17/16 13:20 Serum or plasma sodium measurement (moles/volume) 142 mmol/L 135-145 Serum or plasma potassium measurement (moles/volume) 4.3 mmol/L 3.6-5.0 Serum or plasma chloride measurement (moles/volume) 106 mmol/L 98-107 Carbon dioxide 20 mmol/L 21-32 Serum or plasma anion gap determination (moles/volume) 16 mmol/L 5-14 Serum or plasma urea nitrogen measurement (mass/volume) 9 mg/dL 7-18 Serum or plasma creatinine measurement (mass/volume) 0.81 mg/dL 0.60-1.30 Serum or plasma urea nitrogen/creatinine mass ratio 11 NRG Serum or plasma creatinine measurement with calculation of estimated glomerular filtration rate > NRG Serum or plasma glucose measurement (mass/volume) 98 mg/dL 70-105 Serum or plasma calcium measurement (mass/volume) 10.2 mg/dL 8.5-10.1 Serum or plasma total bilirubin measurement (mass/volume) 0.7 mg/dL 0.1-1.0 Serum or plasma alkaline phosphatase measurement (enzymatic activity/volume) 119 U/L 40-136 Serum or plasma aspartate aminotransferase measurement (enzymatic activity/ volume) 21 U/L 5-34 Serum or plasma alanine aminotransferase measurement (enzymatic activity/volume ) 16 U/L 0-55 Serum or plasma protein measurement (mass/volume) 8.3 g/dL 6.4-8.2 Serum or plasma albumin measurement (mass/volume) 4.9 g/dL 3.2-4.5 Lipase - 07/17/16 13:20 Lipase 28 U/L 8-78 Blood manual differential performed detection - 07/17/16 13:20 Blood monocytes/100 leukocytes 5 % NRG Manual blood segmented neutrophils/100 leukocytes 87 % NRG Blood band neutrophils/100 leukocytes 2 % NRG Manual blood lymphocytes/100 leukocytes 6 % NRG Blood erythrocyte morphology finding identification NORMAL NRG Blood dohle body detection by light microscopy SLIGHT NRG Blood hypersegmented neutrophils detection by light microscopy SLIGHT NRG Urine beta human chorionic gonadotropin (hCG) measurement - 08/16/16 08:30 Urine beta human chorionic gonadotropin (hCG) measurement NEGATIVE NEGATIVE Complete urinalysis with reflex to culture - 08/16/16 08:30 Urine color determination YELLOW NRG Urine clarity determination VERY CLOUDY NRG Urine pH measurement by test strip 5 5-9 Specific gravity of urine by test strip 1.020 1.016- 1.022 Urine protein assay by test strip, semi-quantitative 2+ NEGATIVE Urine glucose detection by automated test strip NEGATIVE NEGATIVE Erythrocytes detection in urine sediment by light microscopy 2+ NEGATIVE Urine ketones detection by automated test strip NEGATIVE NEGATIVE Urine nitrite detection by test strip NEGATIVE NEGATIVE Urine total bilirubin detection by test strip NEGATIVE NEGATIVE Urine urobilinogen measurement by automated test strip (mass/volume) NORMAL NORMAL Urine leukocyte esterase detection by dipstick 1+ NEGATIVE Automated urine sediment erythrocyte count by microscopy (number/high power field) NONE NRG Automated urine sediment leukocyte count by microscopy (number/high power field ) NONE NRG Bacteria detection in urine sediment by light microscopy NEGATIVE NRG Squamous epithelial cells detection in urine sediment by light microscopy NONE NRG Crystals detection in urine sediment by light microscopy NONE NRG Casts detection in urine sediment by light microscopy NONE NRG Mucus detection in urine sediment by light microscopy NEGATIVE NRG Complete urinalysis with reflex to culture NO NRG Amorphous sediment detection in urine sediment by light microscopy LARGE BENJAMIN URATES NRG CBC With Differential/Platelet - 09/30/16 08:04 WBC 6.6 x10E3/uL 3.4-10.8 RBC 4.86 x10E6/uL 3.77-5.28 Hemoglobin 13.9 g/dL 11.1-15.9 Hematocrit 40.2 % 34.0-46.6 MCV 83 fL 79-97 MCH 28.6 pg 26.6-33.0 MCHC 34.6 g/dL 31.5-35.7 RDW 14.4 % 12.3-15.4 Platelets 292 x10E3/uL 150-379 Neutrophils 64 % Lymphs 23 % Monocytes 5 % Eos 7 % Basos 1 % Neutrophils (Absolute) 4.2 x10E3/uL 1.4-7.0 Lymphs (Absolute) 1.5 x10E3/uL 0.7-3.1 Monocytes(Absolute) 0.3 x10E3/uL 0.1-0.9 Eos (Absolute) 0.5 x10E3/uL 0.0-0.4 Baso (Absolute) 0.0 x10E3/uL 0.0-0.2 Immature Granulocytes 0 % Immature Grans (Abs) 0.0 x10E3/uL 0.0-0.1 Comp. Metabolic Panel (14) - 09/30/16 08:04 Glucose, Serum 87 mg/dL 65-99 BUN 12 mg/dL 6-20 Creatinine, Serum 0.78 mg/dL 0.57-1.00 eGFR If NonAfricn Am 107 mL/min/1.73 >59 eGFR If Africn Am 123 mL/min/1.73 >59 BUN/Creatinine Ratio 15 9-23 Sodium, Serum 139 mmol/L 134-144 Potassium, Serum 4.6 mmol/L 3.5-5.2 Chloride, Serum 102 mmol/L 96-106 Carbon Dioxide, Total 22 mmol/L 18-29 Calcium, Serum 9.7 mg/dL 8.7-10.2 Protein, Total, Serum 7.0 g/dL 6.0-8.5 Albumin, Serum 4.6 g/dL 3.5-5.5 Globulin, Total 2.4 g/dL 1.5-4.5 A/G Ratio 1.9 1.2-2.2 Bilirubin, Total 0.4 mg/dL 0.0-1.2 Alkaline Phosphatase, S 78 IU/L 39-117 AST (SGOT) 16 IU/L 0-40 ALT (SGPT) 23 IU/L 0-32 Lipid Panel - 09/30/16 08:04 Cholesterol, Total 200 mg/dL 100-199 Triglycerides 81 mg/dL 0-149 HDL Cholesterol 55 mg/dL >39 VLDL Cholesterol Cade 16 mg/dL 5-40 LDL Cholesterol Calc 129 mg/dL 0-99 Hemoglobin A1c - 09/30/16 08:04 Hemoglobin A1c 5.3 % 4.8-5.6 Vitamin D, 25-Hydroxy - 09/30/16 08:04 Vitamin D, 25-Hydroxy 22.8 ng/mL 30.0-100.0 Thyroid Archuleta Profile - 09/30/16 08:04 TSH 1.880 uIU/mL 0.450-4.500 [id number] - 10/17/16 16:11 Screening antinuclear antibody (DEBORAH) assay by enzyme immunoassay Positive <1:80 Anaplasma phagocytophilum IgG ab [titer] in serum <1: 80 Serum nuclear antibody pattern interpretation Footnote NRG CULTURE, GENITAL - 05/23/17 09:06 CULTURE, GENITAL SEE NOTE NRG Encounters ACCT No. Visit Date/Time Discharge Status Pt. Type Provider Facility Loc./Unit Complaint [id number] 10/26/2012 05:53:00 10/26/2012 11:25:00 DIS Outpatient Glory PRETTY, Leona Rosario [facility] on [address] [id number] 09/19/2012 15:44:00 09/19/2012 23:59:59 CLS Outpatient Glory PRETTY, Leona Rosario [facility] on [facility] [id number] 06/02/2017 16:39:28 06/02/2017 16:39:28 DIS Outpatient [place] [facility] [id number] 10/03/2016 12:07:00 Document Registration [id number] 10/19/2016 15:30:00 10/19/2016 23:59:59 CLS Preadmit SAMANTHA NICOLE [facility] RAD R53.83, G43.909, [id number] 10/17/2016 15:51:00 10/17/2016 23:59:59 CLS Outpatient SAMANTHA NICOLE [facility] LAB G43.909,R53.83,H53.2 [id number] 08/16/2016 08:23:00 08/16/2016 11:15:00 DIS Outpatient ABBIE GIBBONS DO [facility] ENDO BLACK STOOL;ABD PAIN [id number] 08/11/2016 05:47:00 08/11/2016 15:48:00 DIS Outpatient ABBIE GIBBONS DO [facility] PREOP BLACK STOOL;ABD PAIN [id number] 07/17/2016 12:44:00 07/17/2016 15:34:00 DIS Emergency TANYA PRETTY, YE Jensen [facility] ER V/D [id number] 07/17/2015 21:19:00 07/17/2015 22:31:00 DIS Inpatient POLI PRETTY, PUNEET Amado [facility] LDRP PRE-TERM LABOR [id number] 04/17/2015 22:00:00 04/17/2015 23:25:00 DIS Emergency ELIE SANTANA DO [facility] ER BACK PAIN @ 19 WEEKS [id number] 10/14/2016 15:36:21 10/14/2016 23:59:59 CLS Outpatient Samantha Nicole [id number] 01/19/2015 22:34:01 01/19/2015 23:59:59 CLS Outpatient Samantha Nicole [id number] 10/22/2014 16:08:06 10/22/2014 16:08:06 DIS Outpatient [id number] 10/18/2014 09:50:44 Document Registration [id number] 10/18/2014 09:50:41 Document Registration [id number] 10/18/2014 09:50:37 Document Registration [id number] 10/18/2014 09:50:34 Document Registration [id number] 10/18/2014 09:50:30 Document Registration [id number] 10/18/2014 09:50:27 Document Registration [id number] 10/18/2014 09:50:23 Document Registration [id number] 10/18/2014 09:50:19 Document Registration [id number] 10/18/2014 09:50:07 Document Registration [id number] 10/18/2014 09:50:04 Document Registration [id number] 10/18/2014 09:50:01 Document Registration [id number] 10/18/2014 09:49:57 Document Registration [id number] 10/18/2014 09:48:57 Document Registration [id number] 10/18/2014 09:48:52 Document Registration [id number] 06/02/2014 09:23:00 Document Registration [id number] 08/28/2017 12:20:00 08/28/2017 23:59:59 CLS Outpatient CHEL FELTON [facility] [id number] 05/23/2017 08:30:00 Document Registration [id number] 01/24/2015 06:07:37 01/24/2015 06:07:37 DIS Outpatient [id number] 05/30/2014 06:13:48 Document Registration [id number] 05/30/2014 06:13:47 Document Registration [id number] 05/30/2014 06:13:46 Document Registration [id number] 05/30/2014 06:13:45 Document Registration
--- OUTSIDE RECORDS SUMMARY | 2017-11-13 09:53 | XMS REPORT ---
Author Author RITA FRANCISCO [facility] Address [address] [place] [address] Care Team Providers Care Supervisor Histology Name Role Phone RITA FRANCISCO Unavailable PROBLEMS Type Condition ICD9-CM Code FDR10-VS Code Onset Dates Condition Status SNOMED Code Assessment Post depression F53 Feb, Active [id number] ALLERGIES Unknown Allergies SOCIAL HISTORY No smoking Hx information available PLAN OF CARE VITAL SIGNS MEDICATIONS Unknown Medications RESULTS No Results PROCEDURES Procedure Date Ordered Related Diagnosis Body Site Psych diagnostic evaluation, established patient Mar 04, 2016 IMMUNIZATIONS No Known Immunizations
[2017-11-13] MEDS ORDERED: fentaNYL INJECTION 100 MCG/2 ML AMP IVP ONE (10:45)
[2017-11-13 11:07] LABS: BASOPHILS # (AUTO) 0.1 10^3/uL (0.0-0.1); BASOPHILS % (AUTO) 1 % (0-10); EOSINOPHILS # (AUTO) 0.3 10^3/uL (0.0-0.3); EOSINOPHILS % (AUTO) 6 % (0-10); HEMATOCRIT 36 % (35-52); HEMOGLOBIN 12.6 G/DL (11.5-16.0); LYMPHOCYTES # (AUTO) 1.4 X 10^3 (1.0-4.0); LYMPHOCYTES % (AUTO) 28 % (12-44); MEAN CORPUSCULAR HEMOGLOBIN 30 PG (25-34); MEAN CORPUSCULAR HGB CONC 35 G/DL (32-36); MEAN CORPUSCULAR VOLUME 85 FL (80-99); MEAN PLATELET VOLUME 10.6 FL (7.4-10.4); MONOCYTES # (AUTO) 0.3 X 10^3 (0.0-1.0); MONOCYTES % (AUTO) 6 % (0-12); NEUTROPHILS % (AUTO) 59 % (42-75); PLATELET COUNT 223 10^3/uL (130-400); RED BLOOD COUNT 4.22 10^6/uL (4.35-5.85); RED CELL DISTRIBUTION WIDTH 12.9 % (10.0-14.5); WHITE BLOOD COUNT 5.1 10^3/uL (4.3-11.0)
--- NOTE | 2017-11-13 11:11 | ED GU-Female ---
General Chief Complaint: -Female Stated Complaint: HEAVY MENSTRUAL BLEEDING,PAIN AND CRAMPING Nursing Triage Note: PT REPORTS ABNORMAL/HEAVY VAGINAL BLEEDING STARTING MONDAY. PT REPORTS HAS REGULAR PERIODS AND HAD HER LAST THE WEEK OF 10/30 Nursing Sepsis Screen: No Definite Risk Source: patient Exam Limitations: no limitations History of Present Illness Date Seen by Provider: Nov 13, 2017 Time Seen by Provider: 10:03 Initial Comments This 27-year-old 2 para-one presents to the emergency room with complaints of pelvic discomfort and cramping along with lower back cramping. Symptoms started 2 days ago when she woke with the symptoms. She has been having continuous vaginal bleeding since that time. She is also passing some clots. She reports using 9 pads yesterday and 3 pads today, most of which have been saturated. She has had subjective fever but has not measured her temperature at home. She has felt hot and diaphoretic. She has had episodes of diarrhea during this time as well. She has a loss of appetite. is possible. Her last menstrual period was October 27- and it was normal. Her menstrual cycles are normally at 28-30 day intervals. She has no history of menstrual problems or irregular cycles. Allergies and Home Medications Allergies Coded Allergies: No Known Drug Allergies (Unverified , 08/11/16) Home Medications Norgestimate-Ethinyl Estradiol 1 Each Tablet, 1 EACH PO DAILY, (Reported) Ondansetron 4 Mg Tab.rapdis, 4 MG PO Q3HR PRN for VOMITING Prescribed by: YE MARTÍNEZ MD on 07/17/16 1521 Patient Home Medication List Home Medication List Reviewed: Yes Review of Systems Constitutional: no symptoms reported EENTM: no symptoms reported Respiratory: no symptoms reported Cardiovascular: no symptoms reported Gastrointestinal: see HPI Genitourinary: see HPI : No Musculoskeletal: no symptoms reported Skin: no symptoms reported Psychiatric/Neurological: No Symptoms Reported Endocrine: No Symptoms Reported Hematologic/Lymphatic: No Symptoms Reported Past Aoqabiu-Fmwrvl-Kwdzaw Hx Past Med/Social Hx: Reviewed and Corrections made Patient Social History Alcohol Use: Occasionally Uses Recreational Drug Use: No Smoking Status: Current Everyday Smoker Type Used: Cigarettes Recent Foreign Travel: No Contact w/Someone Who Travel: No Recent Infectious Disease Expo: No Recent Hopitalizations: No Physical Abuse: No Sexual Abuse: No Mistreated: No Fear: No Immunizations Up To Date Tetanus Booster (TDap): Unknown Date of Influenza Vaccine: Apr 25, 2016 Seasonal Allergies Seasonal Allergies: Yes Past Medical History Surgeries: Yes (D&C 06/2014, R HAND FX/ORIF, BONE SPURS REMOVED FROM ANKLE, WISDOM TEETH) Gallbladder Respiratory: No (ASTHMA- CHILD) Cardiac: No Neurological: No Last Menstrual Period: October 27, 2017 Reproductive Disorders: No Female Reproductive Disorders: Ovarian Cyst Sexually Transmitted Disease: No HIV/AIDS: No Genitourinary: Yes Bladder Infection Gastrointestinal: Yes Chronic Constipation Musculoskeletal: No (ANKLE) Arthritis Endocrine: No Loss of Vision: Denies Hearing Impairment: Denies Cancer: No Psychosocial: Yes Anxiety Nursing Suicide Risk Score: 0 Integumentary: No Blood Disorders: No Adverse Reaction/Blood Tranf: No (N/A) Family Medical History Reviewed and Corrections made No Pertinent Family Hx (patient is adopted) Physical Exam Vital Signs Vital Signs - First Documented 11/13/17 09:59 Temp 98.2 Pulse 55 Resp 20 B/P (MAP) 116/62 (80) Pulse Ox 98 Capillary Refill : Less Than 3 Seconds General Appearance: WD/WN, no apparent distress HEENT: normal ENT inspection, pharynx normal Neck: normal inspection Cardiovascular: regular rate, rhythm, no edema, no murmur Respiratory: lungs clear, normal breath sounds, no respiratory distress, no accessory muscle use Gastrointestinal: normal bowel sounds, soft, tenderness (diffuse abdominal tenderness most prominent in the pelvis.) Extremities: normal inspection, no pedal edema 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, no motor/sensory deficits, alert, normal mood/affect, oriented x 3 Skin: normal color, warm/dry Progress/Results/Core Measures Suspected Sepsis Recent Fever Within 48 Hours: No Infection Criteria Present: None New/Unexplained Altered Menta: No Sepsis Screen: No Definite Risk SIRS Temperature:98.2 Pulse: 55 Respiratory Rate: 20 Laboratory Tests 11/13/17 10:58: White Blood Count 5.1 Blood Pressure 116 /62 Mean: 80 Laboratory Tests 11/13/17 10:58: Creatinine 0.81, Platelet Count 223, Total Bilirubin 0.7 Results/Orders Lab Results Laboratory Tests Test 11/13/17 10:58 Range/Units White Blood Count 5.1 4.3-11.0 10^3/uL Red Blood Count 4.22 L 4.35-5.85 10^6/uL Hemoglobin 12.6 11.5-16.0 G/DL Hematocrit 36 35-52 % Mean Corpuscular Volume 85 80-99 FL Mean Corpuscular Hemoglobin 30 25-34 PG Mean Corpuscular Hemoglobin Concent 35 32-36 G/DL Red Cell Distribution Width 12.9 10.0-14.5 % Platelet Count 223 130-400 10^3/uL Mean Platelet Volume 10.6 H 7.4-10.4 FL Neutrophils (%) (Auto) 59 42-75 % Lymphocytes (%) (Auto) 28 12-44 % Monocytes (%) (Auto) 6 0-12 % Eosinophils (%) (Auto) 6 0-10 % Basophils (%) (Auto) 1 0-10 % Neutrophils # (Auto) 3.0 1.8-7.8 X 10^3 Lymphocytes # (Auto) 1.4 1.0-4.0 X 10^3 Monocytes # (Auto) 0.3 0.0-1.0 X 10^3 Eosinophils # (Auto) 0.3 0.0-0.3 10^3/uL Basophils # (Auto) 0.1 0.0-0.1 10^3/uL Sodium Level 138 135-145 MMOL/L Potassium Level 4.0 3.6-5.0 MMOL/L Chloride Level 107 98-107 MMOL/L Carbon Dioxide Level 24 21-32 MMOL/L Anion Gap 7 5-14 MMOL/L Blood Urea Nitrogen 13 7-18 MG/DL Creatinine 0.81 0.60-1.30 MG/DL Estimat Glomerular Filtration Rate > 60 BUN/Creatinine Ratio 16 Glucose Level 89 70-105 MG/DL Calcium Level 9.4 8.5-10.1 MG/DL Total Bilirubin 0.7 0.1-1.0 MG/DL Aspartate Amino Transf (AST/SGOT) 17 5-34 U/L Alanine Aminotransferase (ALT/SGPT) 15 0-55 U/L Alkaline Phosphatase 62 40-136 U/L Total Protein 7.0 6.4-8.2 GM/DL Albumin 4.3 3.2-4.5 GM/DL Human Chorionic Gonadotropin, Quant < 5 <5 MIU/ML My Orders Orders - RANJANA ARAUZ MD Cbc With Automated Diff (11/13/17 10:41) Comprehensive Metabolic Panel (11/13/17 10:41) Hcg,Quantitative (11/13/17 10:41) Saline Lock/Iv-Start (11/13/17 10:41) Fentanyl Injection (Sublimaze Injection (11/13/17 10:45) Us Non Ob Transvaginal [id number] (11/13/17 11:43) Ketorolac Injection (Toradol Injection) (11/13/17 13:45) Ketorolac Injection (Toradol Injection) (11/13/17 13:38) Medications Given in ED Current Medications Medications Dose Ordered Sig/Cary Route Start Time Stop Time Status Last Admin Dose Admin Fentanyl Citrate 50 mcg ONCE ONCE IVP 11/13/17 10:45 11/13/17 10:46 DC 11/13/17 10:57 50 MCG Ketorolac Tromethamine 15 mg ONCE ONCE IVP 11/13/17 13:45 11/13/17 13:46 DC 11/13/17 13:40 15 MG Vital Signs/I&O 11/13/17 11/13/17 09:59 14:03 Temp 98.2 Pulse 55 50 Resp 20 20 B/P (MAP) 116/62 (80) 110/68 Pulse Ox 98 98 Capillary Refill : Less Than 3 Seconds Blood Pressure Mean: 80 Progress Note #1: Time: 11:13 Progress Note Patient was seen and examined. She has requested something for pain control. Fentanyl was ordered. A serum test is pending. Results of test will determine disposition for the remainder of her workup. Progress Note #2: Time: 13:38 Progress Note HCG Quant was negative. Case was reviewed with Dr. Shepherd. He suggested ultrasound. Ultrasound revealed a probable hemorrhagic ovarian cyst and a normal endometrium. Dr. Shepherd was contacted again. He recommended pain control and dismissal to outpatient follow-up. Patient still complained of feeling flushed or hot. Repeat oral temperature was 98.4. Toradol was ordered for further pain control. Diagnostic Imaging Diagonstic Imaging: Ultrasound Plain Films/CT/US/NM/MRI: pelvis Comments NAME: FRANCY ANNA MED REC#: [id number] PT STATUS: REG ER : 1990 PHYSICIAN: RANJANA ARAUZ MD ADMIT DATE: 11/13/17/ER Draft Date of Exam:11/13/17 US NON OB TRANSVAGINAL [id number] INDICATION: Pelvic pain with heavy bleeding and clots. TECHNIQUE: Multiple real time plummer scale sonographic images were obtained of the pelvis transabdominally and transvaginally. CORRELATION STUDY: None. FINDINGS: UTERUS/ENDOMETRIUM: Uterus measures 6.8 x 5.1 x 4.5 cm. Endometrial thickness is 6 mm, within normal limits for premenopausal patient. Uterus is noted to be retroverted/retroflexed. RIGHT OVARY: 2.7 x 2.4 x 1.8 cm. LEFT OVARY: 3.8 x 2.5 x 2.8 cm. Complex cystic mass of the left ovary, likely hemorrhagic cyst, at 2.0 x 1.8 x 1.9 cm in size. Additional small cysts and/or follicles are present of the ovaries. Vascular flow is demonstrated to both ovaries. Small amount of free pelvic fluid is present in the bilateral adnexa. IMPRESSION: 1. Probable approximately 2 cm hemorrhagic left ovarian cyst. 2. Endometrial thickness appearing to be within normal limits. Dictated on workstation # [id number] Dict: 11/13/17 1308 Trans: 11/13/17 1315 [id number] Interpreted by: LETITIA BILLINGSLEY DO Departure Impression Primary Impression: Generalized abdominal pain Additional Impressions: Hemorrhagic ovarian cyst Dysfunctional uterine bleeding Disposition: 01 HOME, SELF-CARE Condition: Improved Departure-Patient Inst. Decision time for Depature: 13:30 Referrals: NO,LOCAL PHYSICIAN (PCP) Primary Care Physician TRELL SHEPHERD MD (Family) Primary Care Physician Patient Instructions: Acute Pelvic Pain, Ovarian Cyst (DC) Add. Discharge Instructions: Take ibuprofen up to 600 mg every 6 hours as needed for pain. Add Tylenol ( acetaminophen) up to 1000 mg every 6 hours as needed for additional pain relief. Contact Dr. Shepherd's office for follow-up instructions. Return to the emergency room if you have worsening symptoms. All discharge instructions reviewed with patient and/or family. Voiced understanding. Work/School Note: Work Release Form Date Seen in the Emergency Department: Nov 13, 2017 Return to Work: Nov 14, 2017 Restrictions: No Restrictions Copy Copies To 1: TRELL SHEPHERD MDRANJANA T MD Nov 13, 2017 11:11
[2017-11-13 11:26] LABS: ALANINE AMINOTRANSFERASE 15 U/L (0-55); ALBUMIN 4.3 GM/DL (3.2-4.5); ALKALINE PHOSPHATASE 62 U/L (40-136); BILIRUBIN,TOTAL 0.7 MG/DL (0.1-1.0); BUN/CREATININE RATIO 16; CALCIUM 9.4 MG/DL (8.5-10.1); CARBON DIOXIDE 24 MMOL/L (21-32); CHLORIDE 107 MMOL/L (98-107); CREATININE SERUM 0.81 MG/DL (0.60-1.30); GFR ESTIMATED > 60; GLUCOSE 89 MG/DL (70-105); SODIUM 138 MMOL/L (135-145)
--- NOTE | 2017-11-13 13:16 | Diagnostic Imaging Report ---
INDICATION: Pelvic pain with heavy bleeding and clots. TECHNIQUE: Multiple real time plummer scale sonographic images were obtained of the pelvis transabdominally and transvaginally. CORRELATION STUDY: None. FINDINGS: UTERUS/ENDOMETRIUM: Uterus measures 6.8 x 5.1 x 4.5 cm. Endometrial thickness is 6 mm, within normal limits for premenopausal patient. Uterus is noted to be retroverted/retroflexed. RIGHT OVARY: 2.7 x 2.4 x 1.8 cm. LEFT OVARY: 3.8 x 2.5 x 2.8 cm. Complex cystic mass of the left ovary, likely hemorrhagic cyst, at 2.0 x 1.8 x 1.9 cm in size. Additional small cysts and/or follicles are present of the ovaries. Vascular flow is demonstrated to both ovaries. Small amount of free pelvic fluid is present in the bilateral adnexa. IMPRESSION: 1. Probable approximately 2 cm hemorrhagic left ovarian cyst. 2. Endometrial thickness appearing to be within normal limits. Dictated by: Dictated on workstation # [id number]
[2017-11-13] MEDS ORDERED: KETOROLAC 30 MG/ML VIAL ONE (13:38)
[2017-11-13] MEDS ORDERED: KETOROLAC 30 MG/ML VIAL IVP ONE (13:45)
[2017-11-13 14:03] VITALS: BP 110/68
== END 2017-11-13 14:02 | disposition home or self-care (01) ==
LOC: EDUNIT# 09:45 → ER 09:48
DX: N83.202 Unspecified ovarian cyst, left side (principal); N93.8 Other specified abnormal uterine and vaginal bleeding; J45.909 Unspecified asthma, uncomplicated; F41.9 Anxiety disorder, unspecified; F17.210 Nicotine dependence, cigarettes, uncomplicated; Z87.448 Personal history of other diseases of urinary system; Z87.19 Personal history of other diseases of the digestive system
CPT/HCPCS: 36415; 76830; 80053; 84702; 85025; 96374; 96375

== ENCOUNTER 2018-12-31 08:28 | Emergency (ER) | payer OTHER ==
[~2018-12-31] VITALS: Ht 152.4 cm; Wt 61.2 kg
[~2018-12-31 08:28] MED LIST changes: +HYDR-4226 PO; -HYDR-757 PO
[2018-12-31] MEDS ORDERED: ONDANSETRON 4 MG (ZOFRAN) ORAL DISSOLVE TAB SL STA (08:44)
[2018-12-31] MEDS ORDERED: ANTACID SUSP 30 ML UDC (MYLANTA) PO ONE (08:45)
[2018-12-31] MEDS ORDERED: LIDOCAINE 2% VISCOUS 15 ML UDC PO ONE (08:45)
[2018-12-31] MEDS ORDERED: [UNRECOGNIZED DRUG - OTHER] (08:56)
[2018-12-31] MEDS ORDERED: NS IV 1000 ML 1,000 ML IV ONE (09:16)
--- NOTE | 2018-12-31 09:26 | ED Abdominal Pain ---
General Chief Complaint: Abdominal/GI Problems Stated Complaint: ABD/CHEST PAIN Nursing Triage Note: AMB TO ROOM C/O EPIGASTRIC PAIN. ONSET LAST NIGHT REPORTS BURINING UP INTO HER CHEST. WAS STARTED ON MEDS FOR ULCER. X 1WEEK AGO. Sepsis Screen: No Definite Risk Source of Information: Patient Exam Limitations: No Limitations (RANJANA ARAUZ MD) History of Present Illness Date Seen by Provider: Dec 31, 2018 Time Seen by Provider: 08:36 Initial Comments This 28-year-old young lady presents to the emergency room with complaints of upper abdominal pain radiating up into the mid chest. It is a burning sensation. She has immediate pain after swallowing food or drink. Symptoms have been present for about one week. She visited an urgent care clinic and was advised to take Tums and Prilosec which she has been doing without improvement. Last night her chest felt tight and she felt like she could not breathe. She denies as her last menstrual period was December 15 and she has not had intercourse since then. She occasionally drinks alcohol but has not had any alcohol recently. She does smoke. She is status post cholecystectomy. She does not recall ever having this problem in the past. She has nausea without vomiting. She has been often constipated recently. (RANJANA ARAUZ MD) Allergies and Home Medications Allergies Coded Allergies: No Known Drug Allergies (Unverified , 08/11/16) Home Medications Norgestimate-Ethinyl Estradiol 1 Each Tablet, 1 EACH PO DAILY, (Reported) Ondansetron 4 Mg Tab.rapdis, 4 MG PO Q3HR PRN for VOMITING Prescribed by: YE MARTÍNEZ MD on 07/17/16 1521 Sucralfate 1 Gm Tablet, 1 GM PO ACHS Chew tablet to a slurry and then swallow Prescribed by: MARK WALL on 12/31/18 1148 Patient Home Medication List Home Medication List Reviewed: Yes (RANJANA ARAUZ MD) Review of Systems Review of Systems Constitutional: no symptoms reported EENTM: No Symptoms Reported Respiratory: See HPI Cardiovascular: No Symptoms Reported Gastrointestinal: See HPI Genitourinary: No Symptoms Reported Musculoskeletal: no symptoms reported Skin: no symptoms reported Psychiatric/Neurological: No Symptoms Reported Endocrine: No Symptoms Reported Hematologic/Lymphatic: No Symptoms Reported (RANJANA ARAUZ MD) Past Sdvlcij-Hccywr-Zutdne Hx Past Med/Social Hx: Reviewed and Corrections made (RANJANA ARAUZ MD) Patient Social History Alcohol Use: Occasionally Uses Alcohol Beverage of Choice: Beer Recreational Drug Use: No Smoking Status: Current Everyday Smoker Type Used: Cigarettes Recent Infectious Disease Expo: No Recent Hopitalizations: No (RANJANA ARAUZ MD) Immunizations Up To Date Tetanus Booster (TDap): Unknown Date of Influenza Vaccine: Apr 25, 2016 (RANJANA ARAUZ MD) Seasonal Allergies Seasonal Allergies: Yes (RANJANA ARAUZ MD) Past Medical History Surgeries: Yes (D&C 06/2014, R HAND FX/ORIF, BONE SPURS REMOVED FROM ANKLE, WISDOM TEETH) Gallbladder, Orthopedic Respiratory: Yes Asthma (childhood) Cardiac: No Neurological: No : No Last Menstrual Period: Dec 15, 2018 Reproductive Disorders: No Female Reproductive Disorders: Ovarian Cyst Sexually Transmitted Disease: No HIV/AIDS: No Genitourinary: Yes Bladder Infection Gastrointestinal: Yes Chronic Constipation Musculoskeletal: Yes (ankle) Arthritis Endocrine: No Loss of Vision: Denies Hearing Impairment: Denies Cancer: No Psychosocial: Yes Anxiety Integumentary: No Blood Disorders: No Adverse Reaction/Blood Tranf: No (N/A) (RANJANA ARAUZ MD) Family Medical History No Pertinent Family Hx (RANJANA ARAUZ MD) Physical Exam Vital Signs Vital Signs - First Documented 12/31/18 08:28 Temp 97.6 Pulse 60 Resp 18 B/P (MAP) 140/88 (105) Pulse Ox 98 O2 Delivery Room Air (MARK WALL MD) Vital Signs Capillary Refill : Less Than 3 Seconds (RANJANA ARAUZ MD) Height/Weight/BMI Height: 5'0.00" Weight: 135lbs. 0.0oz. 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, no motor/sensory deficits, alert, normal mood/affect, oriented x 3 Skin: normal color, warm/dry (RANJANA ARAUZ MD) Progress/Results/Core Measures Results/Orders Lab Results Laboratory Tests Test 12/31/18 09:42 Range/Units White Blood Count 7.3 4.3-11.0 10^3/uL Red Blood Count 4.26 L 4.35-5.85 10^6/uL Hemoglobin 11.9 11.5-16.0 G/DL Hematocrit 36 35-52 % Mean Corpuscular Volume 84 80-99 FL Mean Corpuscular Hemoglobin 28 25-34 PG Mean Corpuscular Hemoglobin Concent 33 32-36 G/DL Red Cell Distribution Width 12.6 10.0-14.5 % Platelet Count 257 130-400 10^3/uL Mean Platelet Volume 10.9 H 7.4-10.4 FL Neutrophils (%) (Auto) 57 42-75 % Lymphocytes (%) (Auto) 23 12-44 % Monocytes (%) (Auto) 7 0-12 % Eosinophils (%) (Auto) 13 H 0-10 % Basophils (%) (Auto) 1 0-10 % Neutrophils # (Auto) 4.1 1.8-7.8 X 10^3 Lymphocytes # (Auto) 1.7 1.0-4.0 X 10^3 Monocytes # (Auto) 0.5 0.0-1.0 X 10^3 Eosinophils # (Auto) 0.9 H 0.0-0.3 10^3/uL Basophils # (Auto) 0.0 0.0-0.1 10^3/uL Neutrophils % (Manual) 62 % Lymphocytes % (Manual) 23 % Monocytes % (Manual) 1 % Eosinophils % (Manual) 14 % Basophils % (Manual) 0 % Band Neutrophils 0 % Blood Morphology Comment NORMAL Urine Color YELLOW Urine Clarity CLEAR Urine pH 6 5-9 Urine Specific [place] 1.020 1.016-1.022 Urine Protein NEGATIVE NEGATIVE Urine Glucose (UA) NEGATIVE NEGATIVE Urine Ketones NEGATIVE NEGATIVE Urine Nitrite NEGATIVE NEGATIVE Urine Bilirubin NEGATIVE NEGATIVE Urine Urobilinogen NORMAL NORMAL MG/DL Urine Leukocyte Esterase 1+ H NEGATIVE Urine RBC (Auto) NEGATIVE NEGATIVE Urine RBC NONE /HPF Urine WBC 2-5 /HPF Urine Squamous Epithelial Cells 5-10 /HPF Urine Crystals NONE /LPF Urine Bacteria FEW H /HPF Urine Casts NONE /LPF Urine Mucus SMALL H /LPF Urine Culture Indicated NO Sodium Level 140 135-145 MMOL/L Potassium Level 4.0 3.6-5.0 MMOL/L Chloride Level 107 98-107 MMOL/L Carbon Dioxide Level 23 21-32 MMOL/L Anion Gap 10 5-14 MMOL/L Blood Urea Nitrogen 10 7-18 MG/DL Creatinine 0.92 0.60-1.30 MG/DL Estimat Glomerular Filtration Rate > 60 BUN/Creatinine Ratio 11 Glucose Level 89 70-105 MG/DL Calcium Level 9.6 8.5-10.1 MG/DL Corrected Calcium 9.4 8.5-10.1 MG/DL Total Bilirubin 0.3 0.1-1.0 MG/DL Aspartate Amino Transf (AST/SGOT) 18 5-34 U/L Alanine Aminotransferase (ALT/SGPT) 11 0-55 U/L Alkaline Phosphatase 63 40-136 U/L C-Reactive Protein High Sensitivity 0.12 0.00-0.50 MG/DL Total Protein 6.9 6.4-8.2 GM/DL Albumin 4.3 3.2-4.5 GM/DL Lipase 21 8-78 U/L Serum Test, Qualitative NEGATIVE NEGATIVE (MARK WALL MD) My Orders Orders - MARK WALL MD Sucralfate Tablet (Carafate Tablet) (12/31/18 11:30) (MARK WALL MD) Medications Given in ED Current Medications Medications Dose Ordered Sig/Cary Route Start Time Stop Time Status Last Admin Dose Admin Al Hydrox/Mg Hydrox/Simethicone 30 ml ONCE ONCE PO 12/31/18 08:45 12/31/18 08:46 DC 12/31/18 09:04 30 ML Fentanyl Citrate 50 mcg ONCE ONCE IVP 12/31/18 09:30 12/31/18 09:31 DC 12/31/18 09:41 50 MCG Lidocaine HCl 15 ml ONCE ONCE PO 12/31/18 08:45 12/31/18 08:46 DC 12/31/18 09:04 15 ML Promethazine HCl 12.5 mg ONCE ONCE IVP 7/22/19 09:30 12/31/18 09:31 DC 12/31/18 09:38 12.5 MG Sodium Chloride 1,000 ml @ 0 mls/hr Q0M ONCE IV 12/31/18 09:16 12/31/18 09:21 DC 12/31/18 09:43 1,000 MLS/HR Sucralfate 1 gm ONCE ONCE PO 12/31/18 11:30 12/31/18 11:31 DC 12/31/18 11:30 1 GM (MARK WALL MD) Vital Signs/I&O 12/31/18 08:28 Temp 97.6 Pulse 60 Resp 18 B/P (MAP) 140/88 (105) Pulse Ox 98 O2 Delivery Room Air (MARK WALL MD) Blood Pressure Mean: 105 Progress Progress Note : Time: 09:25 Progress Note Patient was seen and examined shortly after arrival. A trial of treatment with sublingual Zofran and a GI cocktail did not improve her pain. Nausea was actually worse. Workup will be pursued further with labs and x-ray. She will be treated with fentanyl and Phenergan for further symptom management. Verbal report was given to Dr. Wall who is assuming care of patient at this time. (RANJANA ARAUZ MD) Progress Note : Progress Note 1000: I have assumed care of the patient. Pending studies. Reexamined. Monitor patient. 1145: Carafate 1 g by mouth ordered. Overall feeling better at this point and tolerating sips of fluid. I have discussed with her regarding follow- up with the surgeon. We will initiate Carafate for 2 weeks and she will call for appointment. Discharged home with return precautions. Patient verbalize understanding instructions and agreement with plan. 06/13/07: Much better after Carafate. Discharged home with return precautions. Patient verbalize understanding instructions and agreement with plan. Case discussed with Dr. Reyes and he has agreed to see her in the office. Patient to call for appointment. (MARK WALL MD) Diagnostic Imaging Diagonstic Imaging: Xray Plain Films/CT/US/NM/MRI: abdomen Comments NAME: FRANCY ANNA MED REC#: [id number] PT STATUS: REG ER : 1990 PHYSICIAN: RANJANA ARAUZ MD ADMIT DATE: 12/31/18/ER Signed Date of Exam: 12/31/18 ABDOMEN, FLAT & UPRIGHT/DECUB REASON FOR EXAM: Epigastric pain. COMPARISON: None TECHNIQUE: frontal supine views of the abdomen FINDINGS: The bowel gas pattern is nondistended. No large collection of free intraperitoneal air is seen. A moderate amount of gas and fecal material are present in the colon. No abnormal extraosseous calcifications are present. Cholecystectomy clips are seen in the right upper quadrant. The osseous structures are age-appropriate. IMPRESSION: No evidence of bowel obstruction or large collection of free intraperitoneal air. Dictated by: Dictated on workstation # [id number] Dict: 12/31/18 113 Trans: 12/31/181131 Interpreted by: LAZARA ANDREW DO Electronically signed by: LAZARA ANDREW DO 12/31/181131 Diagonstic Imaging: Xray Plain Films/CT/US/NM/MRI: chest Comments NAME: FRANCY ANNA [facility] REC#: [id number] PT STATUS: REG ER : 1990 PHYSICIAN: RANJANA ARAUZ MD ADMIT DATE: 12/31/18/ER Signed Date of Exam: 12/31/18 CHEST PA/LAT (2 VIEW) Patient History: Epigastric pain. Technique: Two views of the chest Comparison: None FINDINGS: The lung volumes are normal. No focal consolidation is seen. No large pleural effusion or pneumothorax is seen. The cardiomediastinal silhouette is normal in size and contour. No acute osseous abnormality is seen. Post cholecystectomy clips are seen in the right upper quadrant. IMPRESSION: No acute pulmonary abnormality seen. Dictated by: Dictated on workstation # [id number] Dict: 12/31/181130 Trans: 12/31/181130 Interpreted by: LAZARA ANDREW DO Electronically signed by: LAZARA ANDREW DO 12/31/18 113 (MARK WALL MD) Departure Impression Primary Impression: Epigastric abdominal pain Disposition: 01 HOME, SELF-CARE Condition: Improved Departure-Patient Inst. Decision time for Depature: 11:45 (MARK WALL MD) Referrals: NO,LOCAL PHYSICIAN (PCP) Primary Care Physician TRELL NESBITT MD (Family) Primary Care Physician DION REYES MD Patient Instructions: Acute Abdomen (Belly Pain), Adult (DC), Peptic Ulcers Add. Discharge Instructions: All discharge instructions reviewed with patient and/or family. Voiced understanding. Take medications as directed. You should increase her omeprazole to twice daily for the next week. You may initiate the Carafate/sucralfate as discussed by chewing of the tablet to a slurry and then swallowing. Call Dr. Reyes's office today for appointment within the next week. You do need evaluation for possible upper endoscopy. Return for worse pain, vomiting, weakness, breathing problems, blood in your vomit or stool or other concerns as needed. Scripts Sucralfate (Sucralfate) 1 Gm Tablet 1 GM PO ACHS, #60 TAB 1 Refill Chew tablet to a slurry and then swallow Prov: MARK WALL MD 12/31/18 Copy Copies To 1: DION REYES MD, JOSHUA T MD Dec 31, 2018 09:26 MARK WALL MD Dec 31, 2018 11:44
[2018-12-31] MEDS ORDERED: PROMETHAZINE INJ 25 MG/ML (PHENERGAN) AMP IVP ONE (09:30)
[2018-12-31] MEDS ORDERED: fentaNYL INJECTION 100 MCG/2 ML AMP IVP ONE (09:30)
[2018-12-31 09:57] LABS: BASOPHILS % (AUTO) 1 % (0-10); EOSINOPHILS # (AUTO) 0.9 10^3/uL (0.0-0.3); EOSINOPHILS % (AUTO) 13 % (0-10); HEMATOCRIT 36 % (35-52); HEMOGLOBIN 11.9 G/DL (11.5-16.0); LYMPHOCYTES # (AUTO) 1.7 X 10^3 (1.0-4.0); LYMPHOCYTES % (AUTO) 23 % (12-44); MEAN CORPUSCULAR HEMOGLOBIN 28 PG (25-34); MEAN CORPUSCULAR HGB CONC 33 G/DL (32-36); MEAN CORPUSCULAR VOLUME 84 FL (80-99); MEAN PLATELET VOLUME 10.9 FL (7.4-10.4); MONOCYTES # (AUTO) 0.5 X 10^3 (0.0-1.0); MONOCYTES % (AUTO) 7 % (0-12); NEUTROPHILS # (AUTO) 4.1 X 10^3 (1.8-7.8); NEUTROPHILS % (AUTO) 57 % (42-75); PLATELET COUNT 257 10^3/uL (130-400); RED CELL DISTRIBUTION WIDTH 12.6 % (10.0-14.5); WHITE BLOOD COUNT 7.3 10^3/uL (4.3-11.0)
--- NOTE | 2018-12-31 09:59 | NUR ---
TO ROOM PATIENT REPORTS THAT SHE FEELING ITICHEY AFTER MEDS. NO SOA REPORTS SOMETIMES AFTER PAIN MEDS DOES FEEL ITHCY DR WALL NOTIFEID.
[2018-12-31 10:03] LABS: BILIRUBIN,URINE NEGATIVE (NEGATIVE); CLARITY,URINE CLEAR; COLOR,URINE YELLOW; GLUCOSE, URINE (UA) NEGATIVE (NEGATIVE); KETONES,URINE NEGATIVE (NEGATIVE); LEUKOCYTE ESTERASE ,URINE 1+ (NEGATIVE); NITRITE,URINE NEGATIVE (NEGATIVE); PH,URINE 6 (5-9); PROTEIN,URINE NEGATIVE (NEGATIVE); UROBILINOGEN,URINE NORMAL (NORMAL)
[2018-12-31 10:06] LABS: BACTERIA,URINE FEW /HPF
[2018-12-31 10:29] LABS: BAND NEUTROPHILS 0 %; BASOPHILS % (MANUAL) 0 %; EOSINOPHILS % (MANUAL) 14 %; LYMPHOCYTES % (MANUAL) 23 %; MONOCYTES % (MANUAL) 1 %; NEUTROPHILS % (MANUAL) 62 %; RBC MORPH NORMAL
[2018-12-31 10:32] LABS: ALANINE AMINOTRANSFERASE 11 U/L (0-55); ALBUMIN 4.3 GM/DL (3.2-4.5); ALKALINE PHOSPHATASE 63 U/L (40-136); BILIRUBIN,TOTAL 0.3 MG/DL (0.1-1.0); BUN/CREATININE RATIO 11; CALCIUM 9.6 MG/DL (8.5-10.1); CARBON DIOXIDE 23 MMOL/L (21-32); CHLORIDE 107 MMOL/L (98-107); CREATININE SERUM 0.92 MG/DL (0.60-1.30); GFR ESTIMATED > 60; GLUCOSE 89 MG/DL (70-105); LIPASE 21 U/L (8-78); SODIUM 140 MMOL/L (135-145); TOTAL PROTEIN 6.9 GM/DL (6.4-8.2)
[2018-12-31] MEDS ORDERED: SUCRALFATE 1 GM (CARAFATE) TAB PO ONE (11:30)
--- NOTE | 2018-12-31 11:34 | Diagnostic Imaging Report ---
Patient History: Epigastric pain. Technique: Two views of the chest Comparison: None FINDINGS: The lung volumes are normal. No focal consolidation is seen. No large pleural effusion or pneumothorax is seen. The cardiomediastinal silhouette is normal in size and contour. No acute osseous abnormality is seen. Post cholecystectomy clips are seen in the right upper quadrant. IMPRESSION: No acute pulmonary abnormality seen. Dictated by: Dictated on workstation # [id number]
--- NOTE | 2018-12-31 11:35 | Diagnostic Imaging Report ---
REASON FOR EXAM: Epigastric pain. COMPARISON: None TECHNIQUE: frontal supine views of the abdomen FINDINGS: The bowel gas pattern is nondistended. No large collection of free intraperitoneal air is seen. A moderate amount of gas and fecal material are present in the colon. No abnormal extraosseous calcifications are present. Cholecystectomy clips are seen in the right upper quadrant. The osseous structures are age-appropriate. IMPRESSION: No evidence of bowel obstruction or large collection of free intraperitoneal air. Dictated by: Dictated on workstation # [id number]
[2018-12-31] MEDS ORDERED: SUCR1TAB PO (11:48)
[2018-12-31 12:20] VITALS: BP 112/68
== END 2018-12-31 12:20 | disposition home or self-care (01) ==
LOC: EDUNIT# 08:28 → ER 08:29
DX: R10.13 Epigastric pain (principal); J45.909 Unspecified asthma, uncomplicated; F41.9 Anxiety disorder, unspecified; Z87.19 Personal history of other diseases of the digestive system; F17.210 Nicotine dependence, cigarettes, uncomplicated; Z90.49 Acquired absence of other specified parts of digestive tract
CPT/HCPCS: 36415; 71046; 74019; 80053; 81000; 83690; 84703; 85007; 85027; 86141; 96361; 96374; 96375

== ENCOUNTER 2019-01-02 13:49 | Day surgery (SDC) | payer OTHER ==
[~2019-01-02] VITALS: Ht 152.4 cm; Wt 61.2 kg
[~2019-01-02 13:49] MED LIST changes: +SUCR1TAB PO; +[UNRECOGNIZED DRUG - OTHER]
[2019-01-02] MEDS ORDERED: NS IV 500 ML 500 ML IV PRN (13:59)
[2019-01-02] MEDS ORDERED: NS IV 500 ML 500 ML ONE (13:59)
[2019-01-02] MEDS ORDERED: MIDAZOLAM 2 MG/2 ML (VERSED) VIAL IVP ONE (14:00)
[2019-01-02] MEDS ORDERED: fentaNYL INJECTION 100 MCG/2 ML AMP IVP ONE (14:00)
[2019-01-02] MEDS ORDERED: LIDOCAINE JELLY 2% 6 ML SYRINGE MM PRN (14:00)
[2019-01-02] MEDS ORDERED: HURRICAINE EXT TUBE (BENZOCAINE) XX PRN (14:00)
--- NOTE | 2019-01-02 14:22 | Conscious Sedation/ASA ---
Conscious Sedation Pre-Proced Time 14:00 ASA Score 2 For ASA 3 and 4: Consider anesthesia and medical clearance. Also, for patients with a history of failed moderate sedation consider anesthesia. Airway Lungs Heart ASA score ASA 1: a normal healthy patient ASA 2: a patient with a mild systemic disease (mid diabetes, controlled hypertension, obesity ASA 3: a patient with a severe systemic disease that limits activity (angina, COPD, prior Myocardial infarction) ASA 4: a patient with an incapacitating disease that is a constant threat to life (CHF, renal failure) ASA 5: a moribund patient not expected to survive 24 hrs. (ruptured aneurysm) ASA 6: a declared brain- patient whose organs are being harvested. For emergent operations, add the letter E after the classification Mallampati Classification Grade 2 Sedation Plan Analgesia, Amnesia, Plan communicated to team members, Discussed options with patient/fam, Discussed risks with patient/fam The patient is an appropriate candidate to undergo the planned procedure, sedation, and anesthesia. The patient immediately re-assessed prior to indication. DION ARRIOLA MD Jan 02, 2019 14:22
--- NOTE | 2019-01-02 14:23 | Progress Note-Pre Operative ---
Pre-Operative Progress Note H&P Reviewed The H&P was reviewed, patient examined and no changes noted. Date Seen by Provider: Jan 02, 2019 Time Seen by Provider: 14:00 Date H&P Reviewed: Jan 02, 2019 Time H&P Reviewed: 14:00 Pre-Operative Diagnosis: GERD, PUD DION ARRIOLA MD Jan 02, 2019 14:23
[2019-01-02] MEDS ORDERED: PANT40TA2 PO (14:25)
--- NOTE | 2019-01-02 14:25 | Discharge Inst-Surgical ---
D/C Lap Instructions-KIDO New, Converted, or Re-Newed RX: RX on Chart Follow Up Activity as tolerated High Fiber Diet 25g or more per day Avoid Alcohol, Caffeine, Spicy [place] and Acid foods. Drink 64 fluid oz or more of fluids per day. Symptoms to Report: Fever over 101 degree F, Nausea/Vomiting If any problems/questions: Contact your physician or go to Emergency Room DION ARRIOLA MD Jan 02, 2019 14:25
[2019-01-02] MEDS ORDERED: HYDROcodone/APAP 5 MG/325 MG (LORTAB) TAB PO PRN (14:30)
[2019-01-02] MEDS ORDERED: ONDANSETRON 4 MG/2 ML (SDV) Z0FRAN IVP PRN (14:30)
[2019-01-02] MEDS ORDERED: morphine INJ 10 MG/ML 1ML (SYR OR VIAL) IVP PRN ×2 (14:30)
[2019-01-02] MEDS ORDERED: ACETAMINOPHEN 325 MG TABLET PO PRN (14:30)
[2019-01-02] MEDS ORDERED: CITA20TA9 PO (14:31)
[2019-01-02 14:33] VITALS: BP 114/66
[2019-01-02] MEDS ORDERED: fentaNYL INJECTION 100 MCG/2 ML AMP ONE ×2 (15:57→16:42)
[2019-01-02] MEDS ORDERED: MIDAZOLAM 2 MG/2 ML (VERSED) VIAL ONE ×6 (15:58→16:36)
[2019-01-02] MEDS ORDERED: LIDOCAINE JELLY 2% 6 ML SYRINGE ONE (16:34)
[2019-01-02 17:15] VITALS: BP 96/55
--- NOTE | 2019-01-02 17:15 | Progress Note-Post Operative ---
Post-Operative Progess Note Surgeon (s)/Information Assurance Manager (s) Surgeon DION ARRIOLA MD Information Assurance Manager: none Pre-Operative Diagnosis GERD, PUD Post-Operative Diagnosis reflux esophagitis(stage 2), small-moderate HH(2.5cm), mild gastritis. Procedure & Operative Findings Date of Procedure 01/02/19 Procedure Performed/Findings EGD with bx. Anesthesia Type cs Estimated Blood Loss Estimated blood loss (mL): minimal Specimens/Packing Specimens Removed antrum, ge jxn DION ARRIOLA MD Jan 02, 2019 17:15
[2019-01-02 18:05] VITALS: BP 112/63
--- NOTE | 2019-01-02 21:30 | OPERATIVE REPORT ---
DATE OF SERVICE: 01/02/2019 ATTENDING SYSTEMS INTEGRATION ADVISOR: Sammi Nicole APRN. PREOPERATIVE DIAGNOSES: Epigastric pain, nausea and vomiting. POSTOPERATIVE DIAGNOSES: Reflux esophagitis, stage II. Small to moderate size hiatal hernia approximately 2.5 to 3 cm in size. Mild gastritis. No formal ulcerations, polyps, or any neoplasms. No distal obstructions. PROCEDURE: EGD with biopsy. SURGEON: Dion Arriola MD. ANESTHESIA: Conscious sedation. ESTIMATED BLOOD LOSS: Minimal. FINDINGS: Reflux esophagitis, stage II. Small to moderate size hiatal hernia approximately 2.5 to 3 cm in size. Mild gastritis. No formal ulcerations, polyps, or any neoplasms. No distal obstructions. INDICATIONS: The patient is a 28-year-old female who presented to the Emergency Department with epigastric burning sensation that had been occurring for the past two weeks; however had worsened. This would occur after eating meals and was associated with nausea and vomiting. She does not report any hematemesis, no coffee ground emesis as well as no change in bowel habits as well as no red blood per rectum nor any dark tarry stools. She has been on different acid reducers and has tried Prilosec, Tums as well as other vtbd-smb-[id number] medications, which have not helped. She was started on Carafate and states that this did help some with her symptoms. She does have risk factors including caffeinated beverages as well as taking spicy, greasy and acidic foods. DESCRIPTION OF PROCEDURE: The patient was brought to the endoscopy suite, laid in the left lateral decubitus position. After adequate IV pain and sedative medications and conscious sedation anesthesia, the mouthpiece was applied. The endoscope was placed in the mouth, visualizing the pharynx and hypopharyngeal region. Vocal cords, epiglottis and vallecula identified and appeared to be normal. The endoscope was then gently intubated the esophageal opening and esophagus insufflated. The endoscope was then advanced to the first, second and third portion of the esophagus at the level of the GE junction, a reflux esophagitis, stage II identified. There were no ulcers or strictures identified in this region. A biopsy was taken using forceps with visualization of good hemostasis. The endoscope was then advanced in the stomach and endoscope retroflexed, visualizing a small to moderate size hiatal hernia approximately 2.5 to 3 cm in size. There was a mild severity gastritis. No formal ulcerations, polyps, or any neoplasms. A biopsy was taken of the antrum to rule out H. pylori with visualization of good hemostasis. The endoscope was then advanced to the pylorus and the first and second portion of the duodenum, which appeared normal with no distal obstructions. The endoscope was then slowly withdrawn while taking a second look and suctioning residual air with no additional findings. The patient tolerated the procedure well. We will recommend the necessary lifestyle and diet accommodation including small and more frequent meals, avoidance of eating at night as well as head elevation while lying supine. She also needs to avoid caffeinated beverages, spicy, greasy and acidic foods. We will also start her on Protonix 40 mg daily as well as continue the Carafate 1 gram q.i.d. for a total of 2 weeks, then on a p.r.n. basis. If she has continued symptoms of epigastric burning sensation, she may have significant reflux and may be a candidate for hiatal hernia repair. However, before proceeding with this, we would proceed with a proper testing, which would include an esophageal manometry to rule out any esophageal dysmotility disorder as well as a 24-hour pH probe to see if acid reflux is the root of her symptomatology. Job ID: [id number] DocumentID: [id number] Dictated Date: 01/02/2019 17:06:15 Able Bodied Tankerman Date: 01/02/2019 21:29:32 Dictated By: DION ARRIOLA MD
== END 2019-01-02 18:00 ==
LOC: ENDO 13:49
PROVIDERS: ATTEND Surgery
DX: K21.0 Gastro-esophageal reflux disease with esophagitis (principal); K44.9 Diaphragmatic hernia without obstruction or gangrene; K29.70 Gastritis, unspecified, without bleeding; F41.9 Anxiety disorder, unspecified; Z90.49 Acquired absence of other specified parts of digestive tract; Z79.899 Other long term (current) drug therapy; Z87.891 Personal history of nicotine dependence; Z79.52 Long term (current) use of systemic steroids
CPT/HCPCS: 84703

== ENCOUNTER 2019-03-06 09:35 | Outpatient (CLI) | payer OTHER ==
[~2019-03-06] VITALS: Ht 152.4 cm; Wt 63.7 kg
[~2019-03-06 09:35] MED LIST changes: +CITA20TA9 PO; +PANT40TA2 PO
[2019-03-06] MEDS ORDERED: PANT40SU PO (09:48)
[2019-03-06 09:50] VITALS: BP 108/65
[2019-03-06 10:25] LABS: BASOPHILS % (AUTO) 1 % (0-10); EOSINOPHILS # (AUTO) 0.5 10^3/uL (0.0-0.3); EOSINOPHILS % (AUTO) 9 % (0-10); HEMATOCRIT 35 % (35-52); HEMOGLOBIN 11.5 G/DL (11.5-16.0); LYMPHOCYTES # (AUTO) 1.2 X 10^3 (1.0-4.0); LYMPHOCYTES % (AUTO) 21 % (12-44); MEAN CORPUSCULAR HEMOGLOBIN 27 PG (25-34); MEAN CORPUSCULAR HGB CONC 33 G/DL (32-36); MEAN CORPUSCULAR VOLUME 81 FL (80-99); MEAN PLATELET VOLUME 11.1 FL (7.4-10.4); MONOCYTES # (AUTO) 0.4 X 10^3 (0.0-1.0); MONOCYTES % (AUTO) 8 % (0-12); NEUTROPHILS # (AUTO) 3.5 X 10^3 (1.8-7.8); NEUTROPHILS % (AUTO) 62 % (42-75); PLATELET COUNT 228 10^3/uL (130-400); RED CELL DISTRIBUTION WIDTH 14.3 % (10.0-14.5); WHITE BLOOD COUNT 5.7 10^3/uL (4.3-11.0)
== END 2019-03-06 11:51 ==
LOC: PREOP 09:35
PROVIDERS: ATTEND Surgery
DX: Z01.818 Encounter for other preprocedural examination (principal); K44.9 Diaphragmatic hernia without obstruction or gangrene
CPT/HCPCS: 36415; 85025; 87081

== ENCOUNTER 2019-03-14 11:00 | Day surgery (SDC) | payer OTHER ==
[2019-03-14] VITALS (11 sets, daily range): BP systolic 113–142; BP diastolic 62–83
[~2019-03-14] VITALS: Ht 152.4 cm; Wt 63.7 kg
[~2019-03-14 11:00] MED LIST changes: +PANT40SU PO
[2019-03-14] MEDS ORDERED: NS IV 1000 ML 1,000 ML IV SCH (11:16)
--- NOTE | 2019-03-14 11:16 | Progress Note-Pre Operative ---
Pre-Operative Progress Note H&P Reviewed The H&P was reviewed, patient examined and no changes noted. Date Seen by Provider: Mar 14, 2019 Time Seen by Provider: 11:15 Date H&P Reviewed: Mar 14, 2019 Time H&P Reviewed: 11:15 Pre-Operative Diagnosis: symptomatic HH hernia DINO ARRIOLA MD Mar 14, 2019 11:16
[2019-03-14] MEDS ORDERED: HYDR-34 PO (11:21)
--- NOTE | 2019-03-14 11:22 | Discharge Inst-Surgical ---
D/C Lap Instructions-ZEINAB New, Converted, or Re-Newed RX: RX on Chart Follow Up Appt in 2 weeks Activity as tolerated No driving for 24 hours No driving while on pain medications Incentive Spirometry use every 2 hours while awake clear liquid diet 5 days then soft diet. Symptoms to Report: Fever over 101 degree F, Nausea/Vomiting Infection Signs and Symptoms to report: Increased redness, Foul odor of wound, Increased drainage Bathing instructions: May shower Operative Area Clean/Dry; Keep incision clean/dry If any problems/questions: Contact your physician or go to Emergency Room DION ARRIOLA MD Mar 14, 2019 11:22
[2019-03-14] MEDS ORDERED: METOCLOPRAMIDE INJ 10 MG/2 ML (REGLAN) IV PRN (11:30)
[2019-03-14] MEDS ORDERED: oxyCODONE 5 MG/5 ML ORAL SOLN (roxiCODONE) 5 ML UDC PO PRN (11:30)
[2019-03-14] MEDS ORDERED: RT-ALBUTEROL SULF 2.5 MG/3 ML PRE-MIX VIAL INH SCH (11:30)
[2019-03-14] MEDS ORDERED: fentaNYL INJECTION 1,000 MCG in NS (IVPB) 80 ML IV SCH (11:30)
[2019-03-14] MEDS ORDERED: diphenhydrAMINE 50 MG/ML INJ (BENADRYL) IVP PRN (11:30)
[2019-03-14] MEDS: LACTATED RINGERS 1,000 ML IV PRN ×3 (11:30→16:03)
[2019-03-14] MEDS ORDERED: NALOXONE 0.4 MG/ML 1 ML (NARCAN) VIAL IV PRN (11:30)
[2019-03-14] MEDS ORDERED: diphenhydrAMINE 50 MG/ML INJ (BENADRYL) IV PRN (11:30)
[2019-03-14] MEDS ORDERED: ONDANSETRON 4 MG/2 ML (SDV) Z0FRAN IV PRN (11:30)
[2019-03-14] MEDS ORDERED: ONDANSETRON 4 MG/2 ML (SDV) Z0FRAN ONE ×3 (11:39→15:56)
[2019-03-14] MEDS ORDERED: FAMOTIDINE 20MG/2ML IV (PEPCID) IV ONE (11:45)
[2019-03-14] MEDS ORDERED: ceFAZolin 2 GM/50 ML NS 50 ML IV ONE (11:45)
[2019-03-14] MEDS: ONDANSETRON 4 MG/2 ML (SDV) Z0FRAN IVP SCH ×3 (11:49→23:53)
[2019-03-14] MEDS ORDERED: METOCLOPRAMIDE INJ 10 MG/2 ML (REGLAN) IVP SCH (12:00)
[2019-03-14] MEDS ORDERED: MIDAZOLAM 2 MG/2 ML (VERSED) VIAL ONE ×2 (12:02→13:04)
[2019-03-14] MEDS ORDERED: MIDAZOLAM 2 MG/2 ML (VERSED) VIAL IV ONE (12:15)
[2019-03-14] MEDS ORDERED: BUP/EPI 0.25% 1:200,000 (MARCAINE) 10 ML VIAL IJ ONE ×2 (12:53→13:05)
[2019-03-14] MEDS ORDERED: LIDOCAINE PF 2% 5 ML (XYLOCAINE) VIAL ONE (13:04)
[2019-03-14] MEDS ORDERED: NEOSTIGMINE 3 MG/3 ML VIAL ONE (13:04)
[2019-03-14] MEDS ORDERED: ROCURONIUM 10 MG/ML 5 ML SYRINGE IV ONE (13:04)
[2019-03-14] MEDS ORDERED: DEXAMETHASONE 10 MG/ML (DECADRON) 1 ML VIAL ONE (13:04)
[2019-03-14] MEDS ORDERED: proPOfol 200 MG/20 ML (DIPRIVAN) VIAL IV ONE (13:04)
[2019-03-14] MEDS ORDERED: GLYCOPYRROLATE 0.2 MG/ML (ROBINUL) 2 ML VIAL ONE (13:04)
[2019-03-14] MEDS ORDERED: fentaNYL INJECTION 100 MCG/2 ML AMP ONE ×2 (13:04→15:36)
[2019-03-14] MEDS ORDERED: SEVOFLURANE (ULTANE) 15 ML INHAL SOLN ONE ×3 (13:04→15:05)
[2019-03-14] MEDS ORDERED: MIDAZOLAM 2 MG/2 ML (VERSED) VIAL IVP ONE (13:15)
[2019-03-14] MEDS ORDERED: SUCCINYLCHOLINE INJ 100 MG/5 ML SYR ONE (14:28)
[2019-03-14] MEDS ORDERED: HYDROmorphone 2 MG/ML VIAL (DILAUDID) ONE (15:19)
--- NOTE | 2019-03-14 15:21 | Progress Note-Post Operative ---
Post-Operative Progess Note Surgeon (s)/Academic Records Specialist (s) Surgeon DION ARRIOLA MD Academic Records Specialist: koby levine SUPPLY CHAIN INTERN Pre-Operative Diagnosis symptomatic HH hernia Post-Operative Diagnosis same(3cm). Procedure & Operative Findings Date of Procedure 03/14/19 Procedure Performed/Findings laparoscopic hiatal hernia repair and ana fundoplication. Anesthesia Type get Estimated Blood Loss Estimated blood loss (mL): minimal Specimens/Packing Specimens Removed none DION ARRIOLA MD Mar 14, 2019 15:21
[2019-03-14] MEDS ORDERED: morphine INJ 10 MG/ML 1ML (SYR OR VIAL) IVP ONE (15:30)
[2019-03-14] MEDS ORDERED: ONDANSETRON 4 MG/2 ML (SDV) Z0FRAN IVP PRN (15:30)
[2019-03-14] MEDS ORDERED: HYDROmorphone 2 MG/ML VIAL (DILAUDID) IV ONE (15:30)
[2019-03-14] MEDS ORDERED: fentaNYL INJECTION 100 MCG/2 ML AMP IVP ONE (15:30)
[2019-03-14] MEDS ORDERED: morphine INJ 10 MG/ML 1ML (SYR OR VIAL) ONE (16:00)
[2019-03-14] MEDS: metroNIDAZOLE 500MG/100ML IVPB 100 ML IV SCH (17:27)
[2019-03-14] MEDS: 1/2 NS W/KCL 20 MEQ/L 1,000 ML IV SCH ×3 (17:41→23:53)
[2019-03-14] MEDS: ceFAZolin 2 GM IV Premixed 50 ML IV SCH (18:46)
--- NOTE | 2019-03-14 19:55 | OPERATIVE REPORT ---
DATE OF SERVICE: 03/14/2019 PREOPERATIVE DIAGNOSIS: Symptomatic type 2 hiatal hernia. POSTOPERATIVE DIAGNOSIS: Symptomatic type 2 hiatal hernia with the defect approximately 3 cm in size. PROCEDURE: Laparoscopic type 2 hiatal hernia repair and Zacarias fundoplication. SURGEON: Dion Arriola MD SWEEPER OPERATOR HIGHWAYS: Jacobo Oconnor APRN ANESTHESIA: General endotracheal. ESTIMATED BLOOD LOSS: Minimal. FINDINGS: Significant sized defect in the diaphragmatic hiatus identified, approximately 3 cm in size. DISPOSITION: The patient tolerated the procedure well. INDICATIONS: The patient is a 29-year-old female, who has had epigastric burning sensation as well as chest pain for several years. She states that she tried medical management and has tried a number of different acid reducers in the past with no success. We had done an EGD on her several months ago where she was found to have a significant sized hiatal hernia, approximately 3 cm in size. We had tried medical management including the necessary lifestyle and diet accommodation including small and more frequent meals, avoidance of eating at night as well as head elevation at night. We also recommend avoidance of caffeinated beverages, spicy, greasy and acidic foods and we also started on Protonix as well as Carafate. Despite proceeding with maximal medical therapy, she continued to be symptomatic. We then scheduled her for esophageal manometry study, which did show normal waveform contractions of the body of the esophagus. DESCRIPTION OF PROCEDURE: The patient was brought to the operating room, laid supine on the table. After adequate IV pain and sedative medications and general endotracheal intubation, the abdomen was prepped and draped in standard surgical fashion. A 0.5% Marcaine with epinephrine was used to anesthetize the left skin in the left upper abdominal quadrant and a transverse skin incision was made using a 15 blade. An 0 silk suture was applied to the medial aspect incision for traction and a Veress needle was inserted with low opening pressure of 0 mmHg and the abdomen was then insufflated to 15 mmHg pressure. The Veress needle was removed and a 5 mm XL trocar was placed, followed by a 5 mm 45-degree angle laparoscope visualizing the peritoneal cavity. A 4-quadrant abdominal exploration was performed. There was a surgically absent gallbladder. There was a significant sized hiatal hernia identified, which appeared to be a type 2 paraesophageal hernia. The defect was approximately 3 cm in size. Under direct visualization, we then proceeded to place a midabdominal left of midline 10 mm port after the skin and peritoneal lining were anesthetized using 0.5% Marcaine with epinephrine and a transverse skin incision was made using a 15 blade. In a similar manner, a midabdominal right of midline 10 mm port was placed, followed by a right upper abdominal quadrant 5 mm port. The epigastric region was then anesthetized and a transverse skin incision was made using an 11 blade. A tract was then created through the abdominal wall layers using a trocar to a 5 mm port. Through this opening, a medium size Jalyn liver retractor was placed and the left lobe of the liver retracted anteriorly and superiorly. The patient was then placed in steep reverse Trendelenburg position. We then proceeded to dissect out the entire hernia sac opening up the pars flaccida and then dissecting out the entire phrenoesophageal ligament as well as the hernia sac using blunt dissection as well as the Sonicision with visualization of good hemostasis. We proceeded with dissection inferiorly identifying the left and right rima of the diaphragm. We then proceeded to take down the short gastric vessels along the fundus of the stomach and a window was then created along the posterior mesenteric attachment. Good hemostasis was observed. We then placed a 44-Yi bougie catheter and then proceeded with reapproximation of the rima of the diaphragm loosely around the esophagus using interrupted 2-0 Surgidac interrupted sutures using the EndoStitch device. We then proceeded with a posterior 360 degree wrap using the fundus of the stomach without any tension. We then proceeded with gastrogastric sutures encompassing the muscular layer of the esophagus using 2-0 Surgidac interrupted sutures creating a Zacarias length of 3 cm. Good hemostasis was observed. The liver retractor was then removed and the fascia and peritoneum to the 10 mm ports were then closed under direct visualization using a Madhu-Dano device and 0 Vicryl suture. The abdomen was desufflated and remaining ports were removed. All skin incisions were closed using 4-0 Monocryl running subcuticular sutures. Wounds were then cleaned and covered with Dermabond. The patient tolerated the procedure well. We will admit her in 23-hour observation, start her on a clear liquid diet as well as pain control with a CLAIMS ACCOUNT MANAGER. We will also proceed with DVT prophylaxis with early ambulation as well as calf SCDs and once she is tolerating clears, has good pain control with oral pain medications, ambulating well, we will discharge her home. She will be instructed to do a phase I clear liquid diet for the next 5 to 7 days and then to advance to a phase 2 soft diet for the next week and then a regular diet. Job ID: [id number] DocumentID: [id number] Dictated Date: 03/14/2019 15:31:22 Associate Manager Date: 03/14/2019 19:54:41 Dictated By: DION ARRIOLA MD MTDD
[2019-03-14] MEDS: RT-ALBUTEROL SULF 2.5 MG/3 ML PRE-MIX VIAL INH SCH (23:45)
[2019-03-15 00:27] VITALS: BP 91/52
[2019-03-15] MEDS: metroNIDAZOLE 500MG/100ML IVPB 100 ML IV SCH ×2 (01:35→08:57)
[2019-03-15] MEDS: RT-ALBUTEROL SULF 2.5 MG/3 ML PRE-MIX VIAL INH SCH ×3 (02:45→10:50)
[2019-03-15] MEDS: ceFAZolin 2 GM IV Premixed 50 ML IV SCH ×2 (03:13→11:27)
[2019-03-15 04:00] VITALS: BP 105/65
[2019-03-15] MEDS: ONDANSETRON 4 MG/2 ML (SDV) Z0FRAN IVP SCH (05:48)
[2019-03-15 07:54] LABS: MEAN PLATELET VOLUME 10.7 FL (7.4-10.4); RED CELL DISTRIBUTION WIDTH 14.8 % (10.0-14.5); WHITE BLOOD COUNT 11.6 10^3/uL (4.3-11.0)
[2019-03-15 08:00] VITALS: BP 107/63
[2019-03-15 08:15] LABS: BUN/CREATININE RATIO 9; CALCIUM 9.2 MG/DL (8.5-10.1); CARBON DIOXIDE 19 MMOL/L (21-32); CHLORIDE 105 MMOL/L (98-107); CREATININE SERUM 0.86 MG/DL (0.60-1.30); GFR ESTIMATED > 60; GLUCOSE 87 MG/DL (70-105); POTASSIUM 4.3 MMOL/L (3.6-5.0); SODIUM 138 MMOL/L (135-145)
[2019-03-15] MEDS: 1/2 NS W/KCL 20 MEQ/L 1,000 ML IV SCH (08:50)
--- NOTE | 2019-03-15 08:50 | Anesthesia-General Post-Op ---
General Patient Condition Mental Status/LOC: Same as Preop Cardiovascular: Satisfactory Nausea/Vomiting: Absent Respiratory: Satisfactory Pain: Controlled Complications: Absent Post Op Complications Complications None Follow Up Care/Instructions Patient Instructions None needed. Anesthesia/Patient Condition Patient Condition Patient is doing well, no complaints, stable vital signs, no apparent adverse anesthesia problems. No complications reported per nursing. DIANA RONDON CRNA Mar 15, 2019 08:50
[2019-03-15] MEDS ORDERED: SENNA W/DOCUSATE (SENOKOT S) TABLET PO SCH (09:00)
[2019-03-15] MEDS ORDERED: PANTOPRAZOLE 40 MG (PROTONIX) VIAL IV SCH (09:00)
[2019-03-15] MEDS ORDERED: ONDANSETRON 4 MG/2 ML (SDV) Z0FRAN IVP PRN (11:30)
[2019-03-15] MEDS ORDERED: METOCLOPRAMIDE INJ 10 MG/2 ML (REGLAN) IVP PRN (11:30)
[2019-03-15 12:12] VITALS: BP 106/58
--- NOTE | 2019-03-15 15:30 | NUR ---
35 MLS FENTANYL WASTED. WITNESSED BY ASHLEY ROONEY
[2019-03-15 15:38] VITALS: BP 106/58
== END 2019-03-15 15:38 | disposition home or self-care (01) ==
LOC: SDC 11:00 → 4TH 16:22 → SDC 03-15 15:38
PROVIDERS: ATTEND Surgery
DX: K44.9 Diaphragmatic hernia without obstruction or gangrene (principal); K29.70 Gastritis, unspecified, without bleeding; K21.0 Gastro-esophageal reflux disease with esophagitis; G43.909 Migraine, unspecified, not intractable, without status migrainosus; F41.9 Anxiety disorder, unspecified; Z87.891 Personal history of nicotine dependence; Z90.49 Acquired absence of other specified parts of digestive tract; Z79.891 Long term (current) use of opiate analgesic; Z79.899 Other long term (current) drug therapy
CPT/HCPCS: 36415; 80048; 84703; 85027; 94640; 94664

== ENCOUNTER → 2019-07-11 | Outpatient (CLI) | payer BC, OTHER ==
[~2019-07-11] MED LIST changes: +HYDR-34 PO
--- NOTE | 2019-07-11 15:28 | Diagnostic Imaging Report ---
INDICATION: Confirm viability. FINDINGS: There is an intrauterine gestational sac containing a pole consistent with 6 weeks 6 days gestation. heart rate was recorded at 130 beats per minute. No errol-gestational sac hemorrhage is detected. Adnexal evaluation was performed demonstrating a 13 mm right ovarian follicle. No adnexal mass or free fluid is seen. IMPRESSION: Single live IUP of 6 weeks 6 days gestational age. The estimated date of confinement sonographically is 02/28/2020. Dictated by: Dictated on workstation # [id number]
== END ==
LOC: RAD 13:12
PROVIDERS: ATTEND Obstetrics & Gynecology
DX: O36.80X0 Pregnancy with inconclusive fetal viability, not applicable or unspecified (principal); Z3A.01 Less than 8 weeks gestation of pregnancy
CPT/HCPCS: 76801; 76817

== ENCOUNTER 2019-08-13 10:53 | Emergency (ER) | payer BC ==
[~2019-08-13] VITALS: Ht 152 cm; Wt 58.4 kg
[2019-08-13] MEDS ORDERED: METOCLOPRAMIDE INJ 10 MG/2 ML (REGLAN) IVP STA (11:10)
[2019-08-13] MEDS ORDERED: LACTATED RINGERS 1,000 ML IV ONE (11:10)
[2019-08-13] MEDS ORDERED: ACETAMINOPHEN 500 MG TAB (TYLENOL) PO STA (11:10)
--- NOTE | 2019-08-13 11:10 | ED General ---
General Stated Complaint: N/V;HEADACHE;11 WKS Source of Information: Patient History of Present Illness Date Seen by Provider: Aug 13, 2019 Time Seen by Provider: 11:00 Initial Comments 29-year-old female presents with headache, nausea, vomiting, photophobia, generalized malaise. Patient is approximately 11 weeks , she does not have any vaginal bleeding or abdominal pain. Patient has been exposed to influenza. Patient reports that she had a headache took some Tylenol and got better but then it came back. Patient reports that his little bit worse than normal since she normally doesn't have photophobia and issues with sound. Allergies and Home Medications Allergies Coded Allergies: No Known Drug Allergies (Unverified , 03/06/19) Home Medications Citalopram Hydrobromide 20 Mg Tablet, 20 MG PO DAILY, (Reported) Patient Home Medication List Home Medication List Reviewed: Yes Review of Systems Review of Systems Constitutional: malaise EENTM: see HPI Respiratory: cough Cardiovascular: No chest pain Gastrointestinal: No abdominal pain, No constipation; nausea, vomiting : Yes Musculoskeletal: no symptoms reported Skin: no symptoms reported Psychiatric/Neurological: Headache Past Ppwyvrl-Woaacg-Enmgiu Hx Past Med/Social Hx: Reviewed Nursing Past Med/Soc Hx Patient Social History Alcohol Beverage of Choice: Beer Type Used: Cigarettes Former Smoker, Quit: Feb 24, 2019 2nd Hand Smoke Exposure: Yes Recent Foreign Travel: No Contact w/Someone Who Travel: No Recent Hopitalizations: No Immunizations Up To Date Tetanus Booster (TDap): Unknown Date of Influenza Vaccine: Mar 19, 2018 Seasonal Allergies Seasonal Allergies: Yes Past Medical History Surgeries: Yes (D&C, R HAND FX/ORIF, BONE SPURS REMOVED FROM ANKLE, WISDOM TEETH) Gallbladder, Orthopedic Respiratory: No Asthma Currently Using CPAP: No Currently Using BIPAP: No Cardiac: No Neurological: Yes Headaches /Migraines Reproductive Disorders: No Female Reproductive Disorders: Ovarian Cyst Sexually Transmitted Disease: No HIV/AIDS: No Genitourinary: No Bladder Infection Gastrointestinal: Yes Gastroesophageal Reflux, Chronic Constipation, Hiatal Hernia Musculoskeletal: Yes (ankle) Arthritis Endocrine: No HEENT: Yes (CONTACTS) Loss of Vision: Denies Hearing Impairment: Denies Cancer: No Psychosocial: Yes Anxiety Integumentary: No Blood Disorders: No Adverse Reaction/Blood Tranf: No (N/A) Family Medical History No Pertinent Family Hx Physical Exam Vital Signs Vital Signs - First Documented 08/13/19 10:55 Temp 37.9 Pulse 79 Resp 18 B/P (MAP) 120/83 (95) Pulse Ox 98 Capillary Refill : Height, Weight, BMI Height: 5'0.00" Weight: 135lbs. 0.0oz. 61.323387iy; 27.42 BMI Method:Stated General Appearance: No Apparent Distress, WD/WN HEENT: PERRL/EOMI, TMs Normal Neck: Non Tender, Supple Respiratory: Lungs Clear, Normal Breath Sounds Cardiovascular: Regular Rate, Rhythm, No Edema Gastrointestinal: Non Tender, Soft, Other ( heart tones in the 160s, beds declan ultrasound shows good heart tones in movement) Back: Normal Inspection Extremity: Normal Capillary Refill, Normal Inspection Neurologic/Psychiatric: Alert, Oriented x3, No Motor/Sensory Deficits, Normal Mood/Affect, pharmacist per diem II-XII Norm as Tested Progress/Results/Core Measures Suspected Sepsis SIRS Temperature: Pulse: Respiratory Rate: Blood Pressure / Mean: Results/Orders Lab Results Laboratory Tests Test 08/13/19 11:00 Range/Units Urine Color YELLOW Urine Clarity CLEAR Urine pH 6.0 5-9 Urine Specific [place] >=1.030 1.016-1.022 Urine Protein NEGATIVE NEGATIVE Urine Glucose (UA) NEGATIVE NEGATIVE Urine Ketones 2+ H NEGATIVE Urine Nitrite NEGATIVE NEGATIVE Urine Bilirubin NEGATIVE NEGATIVE Urine Urobilinogen 2.0 < = 1.0 MG/DL Urine Leukocyte Esterase TRACE H NEGATIVE Urine RBC (Auto) NEGATIVE NEGATIVE Urine RBC RARE /HPF Urine WBC 10-25 H /HPF Urine Squamous Epithelial Cells 25-50 H /HPF Urine Crystals NONE /LPF Urine Bacteria MODERATE H /HPF Urine Casts NONE /LPF Urine Mucus MODERATE H /LPF Urine Culture Indicated YES Micro Results Microbiology 08/13/19 Influenza Types A,B Antigen (JULIA) - Final, Complete My Orders Orders - TIERRA LANDA DO Ed Iv/Invasive Line Start (08/13/19 11:10) Lactated Ringers (Lr 1000 Ml Iv Solution (08/13/19 11:10) Acetaminophen Tablet (Tylenol Tablet) (08/13/19 11:10) Metoclopramide Injection (Reglan Injecti (08/13/19 11:10) Diphenhydramine Injection (Benadryl Inje (08/13/19 11:15) Ua Culture If Indicated (08/13/19 11:13) Influenza A And B Antigens (08/13/19 11:13) Urine Culture (08/13/19 11:00) Medications Given in ED Current Medications Medications Dose Ordered Sig/Cary Route Start Time Stop Time Status Last Admin Dose Admin Diphenhydramine HCl 25 mg ONCE ONCE IVP 08/13/19 11:15 08/13/19 11:16 DC 08/13/19 11:25 25 MG Lactated Ringer's 1,000 ml @ 0 mls/hr Q0M ONCE IV 08/13/19 11:10 08/13/19 11:13 DC 08/13/19 11:26 1,000 MLS/HR Vital Signs/I&O 08/13/19 10:55 Temp 37.9 Pulse 79 Resp 18 B/P (MAP) 120/83 (95) Pulse Ox 98 Capillary Refill : Progress Note : Time: 12:06 Progress Note Patient feeling seemingly better following treatment. Patient is urine likely contaminant due to I will treat her with Keflex. I will also give her some Phenergan for her nausea vomiting. Patient to be discharged home in stable condition and should follow-up with her primary care provider and OB as needed Departure Impression Primary Impression: Headache Qualified Codes: R51 - Headache Additional Impressions: UTI (urinary tract infection) in in first trimester Nausea & vomiting Qualified Codes: R11.2 - Nausea with vomiting, unspecified Disposition: HOME, SELF-CARE Condition: Stable Departure-Patient Inst. Referrals: NO,LOCAL PHYSICIAN (PCP) Primary Care Physician SAMANTHA NINA (Family) Primary Care Physician Patient Instructions: Symptoms, Migraine Headache (DC), Urinary Tract Infection, Adult (DC) Scripts Promethazine HCl (Promethazine Tablet) 25 Mg Tablet 25 MG PO Q6H PRN for NAUSEA/VOMITING, #14 TAB Prov: PEPITO LANDADenise Raygoza DO 08/13/19 Cephalexin (Cephalexin) 500 Mg Tablet 500 MG PO QID, #20 TAB 0 Refills Prov: LANDAPEPITODenise Raygoza DO 08/13/19 Work/School Note: Work Release Form Date Seen in the Emergency Department: Aug 13, 2019 Return to Work: Aug 14, 2019 TIERRA LANDA Idalmis DO Aug 13, 2019 11:10
[2019-08-13] MEDS ORDERED: diphenhydrAMINE 50 MG/ML INJ (BENADRYL) IVP ONE (11:15)
[2019-08-13 11:31] LABS: BILIRUBIN,URINE NEGATIVE (NEGATIVE); CLARITY,URINE CLEAR; COLOR,URINE YELLOW; GLUCOSE, URINE (UA) NEGATIVE (NEGATIVE); KETONES,URINE 2+ (NEGATIVE); LEUKOCYTE ESTERASE ,URINE TRACE (NEGATIVE); NITRITE,URINE NEGATIVE (NEGATIVE); PROTEIN,URINE NEGATIVE (NEGATIVE)
[2019-08-13 11:38] LABS: BACTERIA,URINE MODERATE /HPF; RBC,URINE RARE /HPF; SQUAMOUS EPITHELIAL CELL,UR 25-50 /HPF
[2019-08-13] MEDS ORDERED: PREN-51 PO (11:40)
[2019-08-13] MEDS ORDERED: PROM25TA14 PO (12:10)
[2019-08-13] MEDS ORDERED: CEPH500T PO (12:10)
[2019-08-13 12:31] VITALS: BP 116/68
== END 2019-08-13 12:28 | disposition home or self-care (01) ==
LOC: EDUNIT# 10:53 → ER 10:54
DX: O26.891 Other specified pregnancy related conditions, first trimester (principal); R51 Headache; O23.41 Unspecified infection of urinary tract in pregnancy, first trimester; O99.341 Other mental disorders complicating pregnancy, first trimester; F41.9 Anxiety disorder, unspecified; Z3A.11 11 weeks gestation of pregnancy; Z77.22 Contact with and (suspected) exposure to environmental tobacco smoke (acute) (chronic); Z87.891 Personal history of nicotine dependence
CPT/HCPCS: 81000; 87088; 87804

== ENCOUNTER 2019-08-16 08:03 | Emergency (ER) | payer BC ==
[~2019-08-16] VITALS: Ht 152 cm; Wt 58.6 kg
[~2019-08-16 08:03] MED LIST changes: +CEPH500T PO; +PREN-51 PO; +PROM25TA14 PO
--- NOTE | 2019-08-16 08:39 | NUR ---
NOTIFIED PT THAT THERE WOULD BE A WAIT TO SEE THE DR DUE TO BUSY ER.
--- NOTE | 2019-08-16 08:41 | NUR ---
NOTIFIED PT THAT WAS WITH A CRITICAL PT AND HE SHOULD BE IN SOON HE COULD.
[2019-08-16] MEDS ORDERED: HYDROcodone/APAP 5 MG/325 MG (LORTAB) TAB PO ONE (09:30)
--- NOTE | 2019-08-16 09:31 | ED General ---
General Chief Complaint: General Problems/Pain Stated Complaint: HEMORRHOID;11 WKS PREG. Nursing Triage Note: ARRIVED VIA AMB TO ROOM 09 WITH COMPLAINTS OF HEMORRHOIDS FOR THE LAST COUPLE OF DAYS. HAS BEEN TO URGENT CARE WHO SAID THERE WAS NOTHING THEY COULD DO ET WENT TO DR DURAN WHO TOLD HER TO COME TO THE ER. PT IS 11 WEEKS GESTATION. PT HAS TRICED TUKS AND PREP H. Nursing Sepsis Screen: No Definite Risk Source of Information: Patient Exam Limitations: No Limitations History of Present Illness Date Seen by Provider: Aug 16, 2019 Time Seen by Provider: 09:04 Initial Comments Here with complaint of hemorrhoid pain for the last few days. She is approximately 11 weeks . She has tried eipb-jpr-iyswntk medicine and that is not helping. She took Tylenol about 1 AM but it is not giving her great persistent relief. She is on vitamins as well as iron. She does take stool softener twice daily and has had softer stools over the last day. Had internal hemorrhoids on her previous . States the pain is quite significant and becoming more intolerable. No reported bleeding. Timing/Duration: 2-3 Days Severity: Moderate Associated Systoms: No Fever/Chills, No Nausea/Vomiting, No Weakness Allergies and Home Medications Allergies Coded Allergies: No Known Drug Allergies (Unverified , 03/06/19) Home Medications Citalopram Hydrobromide 20 Mg Tablet, 20 MG PO DAILY, (Reported) Promethazine HCl 25 Mg Tablet, 25 MG PO Q6H PRN for NAUSEA/VOMITING Prescribed by: TIERRA LANDA on 08/13/19 1210 Patient Home Medication List Home Medication List Reviewed: Yes Review of Systems Review of Systems Constitutional: see HPI; No chills, No fever Respiratory: no symptoms reported Cardiovascular: no symptoms reported Gastrointestinal: see HPI; No abdominal pain Genitourinary: no symptoms reported Past Zmkjcjv-Eijsqu-Qwulik Hx Past Med/Social Hx: Reviewed Nursing Past Med/Soc Hx Patient Social History Alcohol Use: Denies Use Alcohol Beverage of Choice: Beer Recreational Drug Use: No Smoking Status: Never a Smoker Type Used: Cigarettes Former Smoker, Quit: Feb 24, 2019 2nd Hand Smoke Exposure: Yes Recent Foreign Travel: No Contact w/Someone Who Travel: No Recent Infectious Disease Expo: No Recent Hopitalizations: No Immunizations Up To Date Tetanus Booster (TDap): Unknown Date of Influenza Vaccine: Mar 19, 2018 Seasonal Allergies Seasonal Allergies: Yes Past Medical History Surgeries: Yes (D&C, R HAND FX/ORIF, BONE SPURS REMOVED FROM ANKLE, WISDOM TEETH) Gallbladder, Orthopedic Respiratory: No Asthma Currently Using CPAP: No Currently Using BIPAP: No Cardiac: No Neurological: Yes Headaches /Migraines Reproductive Disorders: No Female Reproductive Disorders: Ovarian Cyst Sexually Transmitted Disease: No HIV/AIDS: No Genitourinary: No Bladder Infection Gastrointestinal: Yes Gastroesophageal Reflux, Chronic Constipation, Hiatal Hernia Musculoskeletal: Yes (ankle) Arthritis Endocrine: No HEENT: Yes (CONTACTS) Loss of Vision: Denies Hearing Impairment: Denies Cancer: No Psychosocial: Yes Anxiety Integumentary: No Blood Disorders: No Adverse Reaction/Blood Tranf: No (N/A) Family Medical History Reviewed Nursing Family Hx No Pertinent Family Hx Physical Exam Vital Signs Vital Signs - First Documented 08/16/19 08:13 Temp 37.0 Pulse 83 Resp 16 B/P (MAP) 119/70 (86) Pulse Ox 100 O2 Delivery Room Air Capillary Refill : Less Than 3 Seconds Height, Weight, BMI Height: 5'0.00" Weight: 135lbs. 0.0oz. 61.083835yp; 25.00 BMI Method:Stated General Appearance: No Apparent Distress, WD/WN Respiratory: Lungs Clear, Normal Breath Sounds Cardiovascular: Regular Rate, Rhythm, No Murmur Rectal: Hemorrhoids (thrombosed hemorrhoid 6:00 position quite tender but nonbleeding) Neurologic/Psychiatric: Alert, Oriented x3 Progress/Results/Core Measures Suspected Sepsis Recent Fever Within 48 Hours: No Infection Criteria Present: None New/Unexplained Altered Menta: No Sepsis Screen: No Definite Risk SIRS Temperature: Pulse: 83 Respiratory Rate: 16 Blood Pressure 119 /70 Mean: 86 Results/Orders My Orders Orders - MARK WALL MD Hydrocodone/Apap 5/325 Tablet (Lortab 5 (08/16/19 09:30) Medications Given in ED Current Medications Medications Dose Ordered Sig/Cary Route Start Time Stop Time Status Last Admin Dose Admin Acetaminophen/ Hydrocodone Bitart 1 tab ONCE ONCE PO 08/16/19 09:30 08/16/19 09:31 DC 08/16/19 09:25 1 TAB Vital Signs/I&O 08/16/19 08:13 Temp 37.0 Pulse 83 Resp 16 B/P (MAP) 119/70 (86) Pulse Ox 100 O2 Delivery Room Air Capillary Refill : Less Than 3 Seconds Blood Pressure Mean: 86 Progress Note : Progress Note Seen and evaluated. I did discuss the case with Dr. Gibbons and he will see her in office now. Hydrocodone 5/325 one tab by mouth given. Discharged home with return precautions. Patient verbalize understanding instructions and agreement with plan. Departure Impression Primary Impression: Hemorrhoids during in first trimester Disposition: HOME, SELF-CARE Condition: Stable Departure-Patient Inst. Decision time for Depature: 09:34 Referrals: NO,LOCAL PHYSICIAN (PCP) Primary Care Physician SAMANTHA NINA (Family) Primary Care Physician ABBIE GIBBONS DO Patient Instructions: Hemorrhoids (DC) Add. Discharge Instructions: All discharge instructions reviewed with patient and/or family. Voiced understanding. Go to Dr. Gibbons's office directly after departure here for further evaluation. Return for other concerns as needed. Copy Copies To 1: ABBIE GIBBONS TIMOTHY D MD Aug 16, 2019 09:31
[2019-08-16 09:37] VITALS: BP 119/70
[2019-08-16] MEDS ORDERED: HYDR-4226 PO (16:40)
== END 2019-08-16 09:39 | disposition home or self-care (01) ==
LOC: EDUNIT# 08:03 → ER 08:04
DX: O22.41 Hemorrhoids in pregnancy, first trimester (principal); O99.341 Other mental disorders complicating pregnancy, first trimester; F41.9 Anxiety disorder, unspecified; Z3A.11 11 weeks gestation of pregnancy; Z87.891 Personal history of nicotine dependence; Z77.22 Contact with and (suspected) exposure to environmental tobacco smoke (acute) (chronic)
CPT/HCPCS: 99283

== ENCOUNTER 2019-08-29 15:42 | Emergency (ER) | payer BC ==
[~2019-08-29] VITALS: Ht 152.4 cm; Wt 58.1 kg
[2019-08-29] MEDS ORDERED: NS IV 1000 ML 1,000 ML IV SCH (15:45)
[2019-08-29] MEDS ORDERED: ACETAMINOPHEN 500 MG TAB (TYLENOL) PO ONE (15:45)
--- NOTE | 2019-08-29 16:02 | ED Respiratory ---
General Chief Complaint: Respiratory Problems Stated Complaint: COB, COUGH Nursing Triage Note: has sob and fever that started this morning, is currently 13 weeks gestation Source: patient Exam Limitations: no limitations History of Present Illness Date Seen by Provider: Aug 29, 2019 Time Seen by Provider: 15:45 Initial Comments To ER with reports of shortness of breath and cough that began this morning. She was to be seen upstairs for her routine obstetrics visit with Dr. Velasquez and was noted to have a fever of 100.3. She has not traveled outside the [facility] for over 2 weeks nor has she been exposed to any known COVID patients. Timing/Duration: just prior to arrival Severity: moderate Prior Episodes/Possible Cause: no prior episodes Associated Symptoms: cough, shortness of breath Allergies and Home Medications Allergies Coded Allergies: No Known Drug Allergies (Unverified , 03/06/19) Home Medications Citalopram Hydrobromide 20 Mg Tablet, 20 MG PO DAILY, (Reported) Hydrocodone/Acetaminophen 1 Each Tablet, 1 TAB PO Q4-6HR PRN for PAIN-MODERATE (5-7) Prescribed by: MARK WALL on 08/16/19 1641 Promethazine HCl 25 Mg Tablet, 25 MG PO Q6H PRN for NAUSEA/VOMITING Prescribed by: TIERRA LANDA on 08/13/19 1210 Patient Home Medication List Home Medication List Reviewed: Yes Review of Systems Review of Systems Constitutional: see HPI, fever EENTM: see HPI Respiratory: see HPI, cough, short of breath Cardiovascular: no symptoms reported Genitourinary: no symptoms reported Musculoskeletal: no symptoms reported Skin: no symptoms reported Psychiatric/Neurological: No Symptoms Reported Past Lczjgcn-Hgiwok-Hhtjsw Hx Patient Social History Alcohol Use: Denies Use Number of Drinks Today: AA Alcohol Beverage of Choice: Beer Recreational Drug Use: No Smoking Status: Former Smoker Type Used: Cigarettes Former Smoker, Quit: Feb 24, 2019 2nd Hand Smoke Exposure: No Recent Foreign Travel: No Contact w/Someone Who Travel: No Recent Infectious Disease Expo: No Recent Hopitalizations: No Immunizations Up To Date Tetanus Booster (TDap): Unknown Date of Influenza Vaccine: Mar 19, 2018 Seasonal Allergies Seasonal Allergies: Yes Past Medical History Surgeries: Yes (D&C, R HAND FX/ORIF, BONE SPURS REMOVED FROM ANKLE, WISDOM TEETH) Gallbladder, Orthopedic Respiratory: No Asthma Currently Using CPAP: No Currently Using BIPAP: No Cardiac: No Neurological: Yes Headaches /Migraines Reproductive Disorders: No Female Reproductive Disorders: Ovarian Cyst Sexually Transmitted Disease: No HIV/AIDS: No Genitourinary: No Bladder Infection Gastrointestinal: Yes Gastroesophageal Reflux, Chronic Constipation, Hiatal Hernia Musculoskeletal: Yes (ankle) Arthritis Endocrine: No HEENT: Yes (CONTACTS) Loss of Vision: Denies Hearing Impairment: Denies Cancer: No Psychosocial: Yes Anxiety Integumentary: No Blood Disorders: No Adverse Reaction/Blood Tranf: No (N/A) Family Medical History No Pertinent Family Hx Physical Exam Vital Signs - First Documented 08/29/19 15:45 Temp 37.2 Pulse 112 Resp 15 B/P (MAP) 117/68 (84) Capillary Refill : Less Than 3 Seconds Height: 5'0.00" Weight: 135lbs. 0.0oz. 61.596092ya; 25.00 BMI Method:Stated General Appearance: WD/WN, no apparent distress, other (her oxygen saturation is 99% on room air, heart rate 125.) Eyes: Bilateral Eye Normal Inspection, Bilateral Eye PERRL, Bilateral Eye EOMI HEENT: PERRL/EOMI, normal ENT inspection Neck: non-tender, full range of motion Respiratory: no respiratory distress, no accessory muscle use Cardiovascular: regular rate, rhythm, no murmur Gastrointestinal: normal bowel sounds, non tender, soft Neurologic/Psychiatric: alert, normal mood/affect, oriented x 3 Skin: normal color, warm/dry Progress/Results/Core Measures Suspected Sepsis Recent Fever Within 48 Hours: Yes Infection Criteria Present: Suspected New Infection New/Unexplained Altered Menta: No Sepsis Screen: Possible Sepsis Risk SIRS Temperature: Pulse: 112 Respiratory Rate: 15 Laboratory Tests 08/29/19 15:57: White Blood Count 5.9 Blood Pressure 117 /68 Mean: 84 Laboratory Tests 08/29/19 15:57: Creatinine 0.71, Platelet Count 231, Total Bilirubin 0.4 Results/Orders Lab Results Laboratory Tests Test 08/29/19 15:45 08/29/19 15:57 Range/Units Group A Streptococcus Screen NEGATIVE NEGATIVE White Blood Count 5.9 4.3-11.0 10^3/uL Red Blood Count 3.95 L 4.35-5.85 10^6/uL Hemoglobin 11.6 11.5-16.0 G/DL Hematocrit 33 L 35-52 % Mean Corpuscular Volume 84 80-99 FL Mean Corpuscular Hemoglobin 29 25-34 PG Mean Corpuscular Hemoglobin Concent 35 32-36 G/DL Red Cell Distribution Width 13.7 10.0-14.5 % Platelet Count 231 130-400 10^3/uL Mean Platelet Volume 10.1 7.4-10.4 FL Neutrophils (%) (Auto) 81 H 42-75 % Lymphocytes (%) (Auto) 7 L 12-44 % Monocytes (%) (Auto) 6 0-12 % Eosinophils (%) (Auto) 5 0-10 % Basophils (%) (Auto) 1 0-10 % Neutrophils # (Auto) 4.8 1.8-7.8 X 10^3 Lymphocytes # (Auto) 0.4 L 1.0-4.0 X 10^3 Monocytes # (Auto) 0.4 0.0-1.0 X 10^3 Eosinophils # (Auto) 0.3 0.0-0.3 10^3/uL Basophils # (Auto) 0.0 0.0-0.1 10^3/uL Urine Color YELLOW Urine Clarity SL CLOUDY Urine pH 5.5 5-9 Urine Specific [place] >=1.030 1.016-1.022 Urine Protein NEGATIVE NEGATIVE Urine Glucose (UA) NEGATIVE NEGATIVE Urine Ketones 3+ H NEGATIVE Urine Nitrite NEGATIVE NEGATIVE Urine Bilirubin NEGATIVE NEGATIVE Urine Urobilinogen 0.2 < = 1.0 MG/DL Urine Leukocyte Esterase NEGATIVE NEGATIVE Urine RBC (Auto) TRACE-I NEGATIVE Urine RBC 0-2 /HPF Urine WBC 2-5 /HPF Urine Squamous Epithelial Cells 10-25 H /HPF Urine Crystals PRESENT H /LPF Urine Amorphous Sediment FEW BENJAMIN URATES H /LPF Urine Bacteria MODERATE H /HPF Urine Casts NONE /LPF Urine Mucus NEGATIVE /LPF Urine Culture Indicated YES Sodium Level 134 L 135-145 MMOL/L Potassium Level 3.5 L 3.6-5.0 MMOL/L Chloride Level 102 98-107 MMOL/L Carbon Dioxide Level 21 21-32 MMOL/L Anion Gap 11 5-14 MMOL/L Blood Urea Nitrogen 5 L 7-18 MG/DL Creatinine 0.71 0.60-1.30 MG/DL Estimat Glomerular Filtration Rate > 60 BUN/Creatinine Ratio 7 Glucose Level 109 H 70-105 MG/DL Calcium Level 9.1 8.5-10.1 MG/DL Corrected Calcium 9.1 8.5-10.1 MG/DL Total Bilirubin 0.4 0.1-1.0 MG/DL Aspartate Amino Transf (AST/SGOT) 21 5-34 U/L Alanine Aminotransferase (ALT/SGPT) 12 0-55 U/L Alkaline Phosphatase 64 40-136 U/L Total Protein 6.9 6.4-8.2 GM/DL Albumin 4.0 3.2-4.5 GM/DL My Orders Orders - KAYLA JOAQUIN APRN Cbc With Automated Diff (08/29/19 15:45) Comprehensive Metabolic Panel (08/29/19 15:45) Rapid Strep A Screen (08/29/19 15:45) Ed Iv/Invasive Line Start (08/29/19 15:45) Ns Iv 1000 Ml (Sodium Chloride 0.9%) (08/29/19 15:45) Acetaminophen Tablet (Tylenol Tablet) (08/29/19 15:45) Manual Differential (08/29/19 15:57) Medications Given in ED Current Medications Medications Dose Ordered Sig/Cary Route Start Time Stop Time Status Last Admin Dose Admin Acetaminophen 1,000 mg ONCE ONCE PO 08/29/19 15:45 08/29/19 15:47 DC 08/29/19 15:55 1,000 MG Vital Signs/I&O 08/29/19 15:45 Temp 37.2 Pulse 112 Resp 15 B/P (MAP) 117/68 (84) Capillary Refill : Less Than 3 Seconds Blood Pressure Mean: 84 Departure Communication (Admissions) heart tones 161 Impression Primary Impression: Influenza A Disposition: HOME, SELF-CARE Condition: Stable Departure-Patient Inst. Decision time for Depature: 16:34 Referrals: NO,LOCAL PHYSICIAN (PCP) Primary Care Physician SAMANTHA NINA (Family) Primary Care Physician Patient Instructions: Flu, Adult (DC) Add. Discharge Instructions: 1. Tylenol for fevers and chills 2. Follow-up with Dr. Velasquez in about 2 weeks All discharge instructions reviewed with patient and/or family. Voiced understanding. KAYLA JOAQUIN APRN Aug 29, 2019 16:01
[2019-08-29 16:07] LABS: BILIRUBIN,URINE NEGATIVE (NEGATIVE); CLARITY,URINE SL CLOUDY; COLOR,URINE YELLOW; GLUCOSE, URINE (UA) NEGATIVE (NEGATIVE); KETONES,URINE 3+ (NEGATIVE); LEUKOCYTE ESTERASE ,URINE NEGATIVE (NEGATIVE); NITRITE,URINE NEGATIVE (NEGATIVE); PH,URINE 5.5 (5-9); PROTEIN,URINE NEGATIVE (NEGATIVE)
[2019-08-29 16:08] LABS: BASOPHILS % (AUTO) 1 % (0-10); EOSINOPHILS # (AUTO) 0.3 10^3/uL (0.0-0.3); EOSINOPHILS % (AUTO) 5 % (0-10); HEMATOCRIT 33 % (35-52); HEMOGLOBIN 11.6 G/DL (11.5-16.0); LYMPHOCYTES # (AUTO) 0.4 X 10^3 (1.0-4.0); LYMPHOCYTES % (AUTO) 7 % (12-44); MEAN CORPUSCULAR HEMOGLOBIN 29 PG (25-34); MEAN CORPUSCULAR HGB CONC 35 G/DL (32-36); MEAN CORPUSCULAR VOLUME 84 FL (80-99); MEAN PLATELET VOLUME 10.1 FL (7.4-10.4); MONOCYTES # (AUTO) 0.4 X 10^3 (0.0-1.0); MONOCYTES % (AUTO) 6 % (0-12); NEUTROPHILS # (AUTO) 4.8 X 10^3 (1.8-7.8); NEUTROPHILS % (AUTO) 81 % (42-75); PLATELET COUNT 231 10^3/uL (130-400); RED CELL DISTRIBUTION WIDTH 13.7 % (10.0-14.5); WHITE BLOOD COUNT 5.9 10^3/uL (4.3-11.0)
[2019-08-29 16:24] LABS: ALANINE AMINOTRANSFERASE 12 U/L (0-55); ALKALINE PHOSPHATASE 64 U/L (40-136); BILIRUBIN,TOTAL 0.4 MG/DL (0.1-1.0); BUN/CREATININE RATIO 7; CALCIUM 9.1 MG/DL (8.5-10.1); CARBON DIOXIDE 21 MMOL/L (21-32); CHLORIDE 102 MMOL/L (98-107); CREATININE SERUM 0.71 MG/DL (0.60-1.30); GFR ESTIMATED > 60; GLUCOSE 109 MG/DL (70-105); POTASSIUM 3.5 MMOL/L (3.6-5.0); SODIUM 134 MMOL/L (135-145); TOTAL PROTEIN 6.9 GM/DL (6.4-8.2)
[2019-08-29 16:27] LABS: BACTERIA,URINE MODERATE /HPF
[2019-08-29 16:28] LABS: RBC,URINE 0-2 /HPF
[2019-08-29 16:29] LABS: AMORPHOUS SEDIMENT,UR FEW AMOR URATES /LPF
[2019-08-29 16:47] LABS: LYMPHOCYTES % (MANUAL) 6 %; MONOCYTES % (MANUAL) 3 %; NEUTROPHILS % (MANUAL) 91 %; RBC MORPH NORMAL
[2019-08-29 16:48] VITALS: BP 112/82
--- OUTSIDE RECORDS SUMMARY | 2019-08-29 18:56 | XMS REPORT | Continuity of Care Document ---
Author Organization Unknown Address Unknown Phone Unavailable Allergies Active Description Code Type Severity Reaction Onset Reported/Identified Relationship to Patient Clinical Status Yes No Known Allergies Drug Allerg y N/A N/A 10/25/2012 Yes No Known Drug Allergies Drug Allergy N/A N/A 10/25/2012 Yes No Known Food Allergies Food Allergy N/A N/A 10/25/2012 Medications There is no data. Problems Date Dx Coded Attending Type Code Diagnosis Diagnosed By 09/19/2012 Leona Holder MD Final 620.0 OVARIAN FOLLICULAR CYST 09/19/2012 Leona Holder MD Admitting 620.2 OVARIAN CYST NEC NOS 10/26/2012 Leona Holder MD Final 625.9 FE GENITAL SYMPTOMS NOS Procedures Code [place] [address] DIAG LAPARO SEPARATE PROC Leona Holder MD 10/26/2012 Results Test Result Range CULTURE, GENITAL - 05/23/17 09:06 CULTURE, GENITAL SEE NOTE NRG CULTURE, GENITAL - 07/10/19 10:04 CULTURE, GENITAL SEE NOTE NRG GC/CHLAMYDIA (SWAB OR URINE)-RAPID - 10:04 CHLAMYDIA TRACHOMATIS RNA, TMA NOT DETECTED NOT DETECTED NEISSERIA GONORRHOEAE RNA, TMA NOT DETECTED NOT DETECTED COMMENT NRG Radiology Report from [id number] on 013 11:07:00 Final ReportADMITTING DIAGNOSIS: Ovarian cyst 620.2PELVIC SONO LTD/TRANSVAGINAL - 09/19/2012 [facility] ON [facility] RESULT: INDICATION: Pelvic pain.EXAMINATION: Transvaginal sono.FINDINGS:1. Uterus is 4.2 x 4.5 x 3.5 cm. Endometrium is 5 mm. Noabnormalities in the uterus.2. Right ovary is 2.9 x 1.8 x 1.8 cm. Normal blood flow. Tinyfollicular cyst of 5 mm of no significance. No evidence oftorsion. No masses or free fluid.3. Left ovary is 3 x 2.1 x 2.9 cm. There is a small follicularcyst of 1.1 x 0.8 cm that is benign. There is an echogenic areain the left ovary, may have been an old area of trauma but isnot a hemorrhagic cyst or true mass and I discussed that withthe technologist.IMPRESSION: No true cysts. There are some tiny follicular cysts.There is an area of scar from what may have been an old orhemorrhagic cyst in the left ovary but essentially normal pelvicsono.Dictated on workstation # [id number] RADIOLOGIST: SEAN GABRIEL M.D., RADIOLOGISTELECTRONICALLY SIGNED BY: SEAN GABRIEL M.D., RADIOLOGISTD Sep 19 2012 5:01PT AS6: Sep 20 2012 11:05AS Sep 20 2012 11:05A Encounters ACCT No. Visit Date/Time Discharge Status Pt. Type Provider Facility Loc./Unit Complaint [id number] 02/21/2018 11:00:51 02/21/2018 23:59: 59 CLS Outpatient Dany Wu [id number] 10/14/2016 15:36:21 10/14/2016 23:59: 59 CLS Outpatient Sammi Nicole [id number] 01/19/2015 22:34:01 01/19/2015 23:59: 59 CLS Outpatient Sammi Nicole [id number] 10/26/2012 05:53:00 10/27/19 13 11:25:00 DIS Outpatient Leona Holder MD [facility] on [address] [id number] 09/19/2012 15:44:00 09/20/19 13 23:59:59 CLS Outpatient Leona Holder MD [facility] on [facility] [id number] 08/15/2019 18:05:00 08/15/2019 23:59: 59 CLS Outpatient EMILIA PRETTY, ISMAEL JEFFRIES [facility] [id number] 07/10/2019 16:15:00 Document Registration [id number] 05/23/2017 08:30:00 Document Registration
== END 2019-08-29 16:48 | disposition home or self-care (01) ==
LOC: EDUNIT# 15:42 → ER 15:43
DX: J10.1 Influenza due to other identified influenza virus with other respiratory manifestations (principal); F41.9 Anxiety disorder, unspecified; Z87.891 Personal history of nicotine dependence
CPT/HCPCS: 36415; 80053; 81000; 85007; 85027; 87088; 87430; 87804

== ENCOUNTER 2020-01-31 19:24 | Outpatient (CLI) | payer BC ==
[~2020-01-31] VITALS: Ht 152.4 cm; Wt 63.0 kg
--- NOTE | 2020-01-31 19:20 | NUR ---
FRANCY DE SANTIAGO presented to unit via wc from ED, accompanied by s.o., with c/o CONTRACTIONS. FRANCY DE SANTIAGO weighed, gowned, voided, and to bed. EFHM and TOCO applied, VS taken. FRANCY DE SANTIAGO oriented to bed controls, call light, TV, heat, and A/C controls.
[2020-01-31 19:30] VITALS: BP 114/67
--- NOTE | 2020-01-31 19:35 | NUR ---
DR BRANNON CALLED WITH REPORT OF PATIENT ARRIVAL, C/O AND ASSESSMENT. REPORTED INABILITY TO TRACE CONSISTANT UTERINE ACTIVITY OR HEART TONES D/T TO PT WRITHING IN BED AND STANDING AT SIDE OF BED AND WALKING, BENDING AND SOBBING. REPORTED THAT PT CAME TO OUR [facility] AFTER LEAVING [place], WHERE SHE RECEIVES CARE, BECAUSE THE PAIN INCREASED AND PT FEARED SHE WOULD NOT MAKE IT BACK TO [place] IN TIME. PT ASKS SEVERAL TIMES IF WE WILL TRANSFER BY AMBULANCE BACK TO [place]. ALSO REPORTED THAT CERVICAL EXAM IN [place] 45 MIN PRIOR TO ARRIVAL WAS 3 CM/100%, AND THIS NURSE WAS UNABLE TO GET 2 FINGERS INTO CERVIX AND CERVIX WAS MORE LIKE 80% EFFACED AND VERY POSTERIOR. NEW ORDERS RECEIVED AT THIS TIME.
[2020-01-31] MEDS ORDERED: TERBUTALINE INJ 1 MG/ML (BRETHINE) AMP ONE (19:36)
--- NOTE | 2020-01-31 19:40 | NUR ---
TERB GIVEN SQ TO LEFT UPPER ARM AND PERCOCET 1 TAB PO ALSO ADMINISTERED.
[2020-01-31] MEDS ORDERED: oxyCODONE/APAP 5/325MG (PERCOCET 5) TABLET ONE (19:41)
[2020-01-31 19:50] VITALS: BP 114/67
[2020-01-31] MEDS ORDERED: oxyCODONE/APAP 5/325MG (PERCOCET 5) TABLET PO ONE (19:58)
[2020-01-31] MEDS ORDERED: TERBUTALINE INJ 1 MG/ML (BRETHINE) AMP SQ ONE (20:00)
--- NOTE | 2020-01-31 20:05 | NUR ---
PT NOTED TO BE MUCH CALMER AT THIS TIME, BUT CONT TO MOVE ALL OVER THE ROOM AND TO BE STANDING AT BESIDE AT THIS TIME. PT WAS OVERHEARD CALLING [facility] TO SEE IF SHE COULD COME BACK THERE TO BE ADMITTED IF WE WERE TO DISMISS HER.
--- NOTE | 2020-01-31 20:40 | NUR ---
RETURNED TO PT ROOM WHERE SHE IS IN BED AND LYING STILL AT THIS TIME. PT REPORTS PAIN HAS NOT IMPROVED. PT INFORMED, AFTER TALKING TO DR BRANNON, THAT IF PT IS IN THAT MUCH PAIN WE CAN NOT DISCHARGE HER HER CONDITION IS NOT STABLE. ALSO INFORMED PT THAT SINCE HER CONTRACTIONS HAVE STOPPED BASED ON TOCO AND PALPATION, AND HAS MADE NO CERVICAL CHANGE WE CANNOT TRANSFER HER BACK TO [place] BY AMBULANCE. PT AND ARE GOING TO TALK TO DECIDE IF HER PAIN IS AT A TOLERABLE LEVEL THAT SHE CAN EITHER RETURN HOME OR DRIVE TO [place] BY PRIVATE VEHICLE.
--- NOTE | 2020-01-31 21:00 | NUR ---
PT REPORTS THAT SHE FEELS PAIN IS TOLERABLE AND SHE WOULD BE ABLE TO GO HOME AND SLEEP OR BE ABLE TO TOLERATE A CAR DRIVE TO [place]. OFFERED TO RECHECK PT'S CERVIX PRIOR TO DISCHARGE FOR REASSURANCE IF DESIRED. PT DECLINES THE NEED FOR SVE.
--- NOTE | 2020-01-31 21:12 | NUR ---
EFM D/C'D AND PT ALLOWED TO DRESS.
--- NOTE | 2020-01-31 21:25 | NUR ---
DISCHARGE INSTRUCTIONS GIVEN. DIRECT CONTACT NUMBERS TO OB GIVEN IN CASE PT HAS EMERGENCY AND NEEDS TO CALL BECAUSE SHE IS UNABLE TO GET TO [place]. PT VERBALIZES UNDERSTANDING AND SIGNATURE OBTAINED.
--- NOTE | 2020-01-31 21:38 | NUR ---
PT REFUSES W/C FOR DISCHARGE. PT AMB OFF UNIT ACCOMPANIED BY AND THIS NURSE. PT IN GOOD SPIRITS. PT JOKING WITH SCREENER AT ENTRY DOOR THAT SHE HATES FALSE ALARMS. PT NOTED TO BE IN NO DISTRESS AT THIS TIME. PT INTO PRIVATE VEHICLE IN STABLE CONDITION.
--- NOTE | 2020-02-03 08:13 | Physician Query-Final Dx ---
JUAN DOE 02/03/20 0813: Clinic Account Progress/Dx Physician Query: Please give diagnosis Please include # weeks gestation Date of Service Jan 31, 2020 at 19:24 BEN BRANNON DO 02/03/20 1743: Clinic Account Progress/Dx Physician Query: Please give diagnosis DIAGNOSIS: Diagnosis Intrauterine at 35 weeks 2. Pelvic Pain 3. Threatened Labor JUAN DOE Feb 03, 2020 08:13 BEN BRANNON DO Feb 03, 2020 17:43
== END 2020-01-31 21:38 | disposition home or self-care (01) ==
LOC: WSo 19:24 → LDRP 19:25 → WSo 21:38
PROVIDERS: ATTEND Obstetrics & Gynecology
DX: O60.14X1 Preterm labor third trimester with preterm delivery third trimester, fetus 1 (principal); O26.893 Other specified pregnancy related conditions, third trimester; Z3A.35 35 weeks gestation of pregnancy
CPT/HCPCS: 96372; G0463; 99213

== ENCOUNTER 2020-03-22 20:25 | Emergency (ER) | payer BC ==
[~2020-03-22] VITALS: Ht 152.4 cm; Wt 54.5 kg
[2020-03-22] MEDS ORDERED: LACTATED RINGERS 1,000 ML IV ONE (20:37)
--- NOTE | 2020-03-22 20:44 | ED Abdominal Pain ---
General Chief Complaint: abdominal pain Stated Complaint: SEVERE ABD PAIN History of Present Illness Date Seen by Provider: Mar 22, 2020 Time Seen by Provider: 20:40 Initial Comments Linda is a 30 yo F with history of uncomplicated vaginal delivery 1 month ago, prior ventral hernia repair, and cholecystectomy who presents with complaint of abdominal pain. The patient complains of sudden onset severe abdominal pain in a band distribution at the umbilicus as well as left sided back pain. The pain is 10/10 in severity, worse with movement, laying flat, and deep breaths. She took tylenol with initial onset which did not improve the pain. The patient denies nausea, vomiting, diarrhea, fever, chills, chest pain, and SOB. She states she had some postoperative constipaton but took laxatives for it. No history of kidney stones in the past. (KAYLA MARLOW) Allergies and Home Medications Allergies Coded Allergies: No Known Drug Allergies (Unverified , 03/06/19) Home Medications Cephalexin 500 Mg Capsule, 500 MG PO TID Prescribed by: RANJANA BERRY on 03/22/20 234 Omeprazole 20 Mg Tablet.dr, 20 MG PO BID Prescribed by: RANJANA BERRY on 03/22/20 2345 Sucralfate 1 Gm Tablet, 1 GM PO QID More effective if crushed/dissolved in 5-10 ml water to slurry. Take 30 min before meals and bedtime Prescribed by: RANJANA BERRY on 03/22/20 2345 Patient Home Medication List Home Medication List Reviewed: Yes (RANJANA JULIEN MD) Review of Systems Review of Systems Constitutional: No chills, No fever Respiratory: Denies Cough, Denies Shortness of Air Cardiovascular: Denies Chest Pain Gastrointestinal: Abdominal Pain; Denies Constipated, Denies Diarrhea, Denies Nausea, Denies Vomiting Musculoskeletal: back pain (KAYLA MARLOW) Past Lrbeyek-Kycmjj-Tbpvgu Hx Past Med/Social Hx: Reviewed Nursing Past Med/Soc Hx (RANJANA JULIEN MD) Patient Social History Alcohol Beverage of Choice: Beer Type Used: Cigarettes Former Smoker, Quit: Jun 12, 2019 2nd Hand Smoke Exposure: No Recent Foreign Travel: No Contact w/Someone Who Travel: No Recent Hopitalizations: No (SIMONSE,PETER MED STUDENT) Immunizations Up To Date Tetanus Booster (TDap): Unknown Date of Influenza Vaccine: Mar 19, 2018 (KAYLA MARLOW STUDENT) Seasonal Allergies Seasonal Allergies: Yes (KAYLA MARLOW STUDENT) Past Medical History Surgeries: Yes (D&C, R HAND FX/ORIF, BONE SPURS REMOVED FROM ANKLE, WISDOM TEETH) Gallbladder, Orthopedic Respiratory: No Asthma Currently Using CPAP: No Currently Using BIPAP: No Cardiac: No Neurological: Yes Headaches /Migraines Reproductive Disorders: No Female Reproductive Disorders: Ovarian Cyst Sexually Transmitted Disease: No HIV/AIDS: No Genitourinary: No Bladder Infection Gastrointestinal: Yes Gastroesophageal Reflux, Chronic Constipation, Hiatal Hernia Musculoskeletal: Yes (ankle) Arthritis Endocrine: No HEENT: Yes (CONTACTS) Loss of Vision: Denies Hearing Impairment: Denies Cancer: No Psychosocial: Yes Anxiety Integumentary: No Blood Disorders: No Adverse Reaction/Blood Tranf: No (N/A) (KAYLA MARLOW STUDENT) Family Medical History No Pertinent Family Hx (KAYLA MARLOW STUDENT) Physical Exam Vital Signs Vital Signs - First Documented 03/22/20 20:30 Temp 37.4 Pulse 64 Resp 22 B/P (MAP) 176/100 (125) Pulse Ox 100 O2 Delivery Room Air (RANJANA JULIEN MD) Vital Signs Capillary Refill : (KAYLA MARLOW STUDENT) Height/Weight/BMI Height: 5'0.00" Weight: 135lbs. 0.0oz. 61.267026az; 27.12 BMI Method:Stated General Appearance: WD/WN, moderate distress (occasionally crying due to pain), other (hunches forward when walking) Neurologic/Psychiatric: alert (KAYLA MARLOW STUDENT) HEENT: PERRL/EOMI, normal ENT inspection Neck: normal inspection Respiratory: lungs clear, normal breath sounds, no respiratory distress, no accessory muscle use Cardiovascular: no edema, no murmur, bradycardia Gastrointestinal: normal bowel sounds, soft; No distended, No rebound; tenderness (most prominent in the LUQ) Extremities: normal inspection, no pedal edema Back: normal inspection, no CVA tenderness 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, no motor/sensory deficits, normal mood/affect, oriented x 3 Skin: normal color, warm/dry (RANJANA JULIEN MD) Progress/Results/Core Measures Results/Orders Lab Results Laboratory Tests Test 03/22/20 20:34 03/22/20 20:36 Range/Units White Blood Count 7.2 4.3-11.0 10^3/uL Red Blood Count 5.01 3.80-5.11 10^6/uL Hemoglobin 13.4 11.5-16.0 g/dL Hematocrit 42 35-52 % Mean Corpuscular Volume 83 80-99 fL Mean Corpuscular Hemoglobin 27 25-34 pg Mean Corpuscular Hemoglobin Concent 32 32-36 g/dL Red Cell Distribution Width 14.4 10.0-14.5 % Platelet Count 250 130-400 10^3/uL Mean Platelet Volume 10.5 9.0-12.2 fL Immature Granulocyte % (Auto) 0 % Neutrophils (%) (Auto) 47 42-75 % Lymphocytes (%) (Auto) 35 12-44 % Monocytes (%) (Auto) 5 0-12 % Eosinophils (%) (Auto) 12 H 0-10 % Basophils (%) (Auto) 1 0-10 % Neutrophils # (Auto) 3.4 1.8-7.8 10^3/uL Lymphocytes # (Auto) 2.5 1.0-4.0 10^3/uL Monocytes # (Auto) 0.4 0.0-1.0 10^3/uL Eosinophils # (Auto) 0.9 H 0.0-0.3 10^3/uL Basophils # (Auto) 0.1 0.0-0.1 10^3/uL Immature Granulocyte # (Auto) 0.0 0.0-0.1 10^3/uL Sodium Level 140 135-145 MMOL/L Potassium Level 4.1 3.6-5.0 MMOL/L Chloride Level 100 98-107 MMOL/L Carbon Dioxide Level 26 21-32 MMOL/L Anion Gap 14 5-14 MMOL/L Blood Urea Nitrogen 13 7-18 MG/DL Creatinine 1.07 0.60-1.30 MG/DL Estimat Glomerular Filtration Rate > 60 BUN/Creatinine Ratio 12 Glucose Level 96 70-105 MG/DL Calcium Level 9.6 8.5-10.1 MG/DL Corrected Calcium 8.5-10.1 MG/DL Total Bilirubin 0.4 0.1-1.0 MG/DL Aspartate Amino Transf (AST/SGOT) 21 5-34 U/L Alanine Aminotransferase (ALT/SGPT) 13 0-55 U/L Alkaline Phosphatase 116 40-136 U/L C-Reactive Protein High Sensitivity 0.37 0.00-0.50 MG/DL Total Protein 7.7 6.4-8.2 GM/DL Albumin 4.6 H 3.2-4.5 GM/DL Lipase 38 8-78 U/L Urine Color YELLOW Urine Clarity CLOUDY Urine pH 6.0 5-9 Urine Specific Bradley 1.020 1.016-1.022 Urine Protein NEGATIVE NEGATIVE Urine Glucose (UA) NEGATIVE NEGATIVE Urine Ketones NEGATIVE NEGATIVE Urine Nitrite NEGATIVE NEGATIVE Urine Bilirubin NEGATIVE NEGATIVE Urine Urobilinogen 0.2 < = 1.0 MG/DL Urine Leukocyte Esterase 1+ H NEGATIVE Urine RBC (Auto) 1+ H NEGATIVE Urine RBC NONE /HPF Urine WBC 10-25 H /HPF Urine Squamous Epithelial Cells 10-25 H /HPF Urine Crystals NONE /LPF Urine Bacteria TRACE /HPF Urine Casts NONE /LPF Urine Mucus NEGATIVE /LPF Urine Culture Indicated YES (RANJANA JULIEN MD) My Orders Orders - RANJANA JULIEN MD Cbc With Automated Diff (03/22/20 20:37) Comprehensive Metabolic Panel (03/22/20 20:37) Hs C Reactive Protein (03/22/20 20:37) Ua Culture If Indicated (03/22/20 20:37) Ed Iv/Invasive Line Start (03/22/20 20:37) Lactated Ringers (Lr 1000 Ml Iv Solution (03/22/20 20:37) Ketorolac Injection (Toradol Injection) (03/22/20 20:45) Urine Culture (03/22/20 20:36) Lipase (03/22/20 21:13) Ct Abd/Pelvis Wo(Kidney Stone) (03/22/20 21:13) Ondansetron Injection (Zofran Injectio (03/22/20 21:45) Lidocaine 2% Viscous 15 Ml (Xylocaine Vi (03/22/20 21:45) Antacid Suspension (Mylanta Suspension (03/22/20 21:45) Famotidine Injection (Pepcid Injection) (03/22/20 21:41) Ekg Tracing (10/11/20 22:09) Monitor-Rhythm Ecg Trace Only (03/22/20 22:09) Pantoprazole Injection (Protonix Injecti (03/22/20 23:00) Cephalexin Capsule (Keflex Capsule) (03/22/20 23:45) (RANJANA JULIEN MD) Medications Given in ED (RANJANA JULIEN MD) Vital Signs/I&O 03/22/20 03/23/20 20:30 00:00 Temp 37.4 36.1 Pulse 64 40 Resp 22 19 B/P (MAP) 176/100 (125) 125/90 Pulse Ox 100 97 O2 Delivery Room Air Room Air 03/23/20 00:00 Intake Total 1000 ml Balance 1000 ml (RANJANA JULIEN MD) Progress Progress Note : Time: 20:50 Progress Note 30 yo F who is 1 month complains of sudden onset severe sharp a bdominal and left back pain. History and exam are extremely suspicious for ureterolithiasis, and with the patient's pain level we will start IV fluids and toradol. The suddenness of the presentation and lack of systemic symptoms make inflammatory and infectious conditions such as colitis or pyelonephritis less likely. Denied recent trauma, so splenic rupture and intraperitonal bleed are unlikely. Post-operative complications of vaginal delivery not likely a full month out with what sounds like an uncomplicated delivery. Will evaluate pancreas with lipase, CBC and CMP to evaluate potential anemia and metabolic abnormalities, CRP and UA. 2111 Dr. Julien discussed option of CT with the patient, she would like to have a CT. (KAYLA AMRLOW MED STUDENT) Initial ECG Impression Date: Mar 22, 2020 Initial ECG Impression Time: 22:17 Initial ECG Rate: 40 Initial ECG Rhythm: S.[place]wood Initial ECG Impression: Sinus Bradycardia Comment Sinus bradycardia with no ST elevation or depression. No abnormal intervals or axis deviation. (RANJANA JULIEN MD) Diagnostic Imaging Diagonstic Imaging: CT Plain Films/CT/US/NM/MRI: abdomen, pelvis Comments CT scan reviewed by me and report reviewed. See report below: NAME: LINDA DE SANTIAGO [facility] REC#: [id number] PT STATUS: REG ER : 1990 PHYSICIAN: RANJANA JULIEN MD ADMIT DATE: 03/22/20/ER Signed Date of Exam:03/22/20 CT ABD/PELVIS WO(KIDNEY STONE) PROCEDURE: CT urinary tract, rule out kidney stone. TECHNIQUE: Multiple contiguous axial images were obtained through the abdomen and pelvis without the use of intravenous contrast. Auto Exposure Controls were utilized during the CT exam to meet ALARA standards for radiation dose reduction. INDICATION: Flank pain, . COMPARISON: None. FINDINGS: Lung bases are clear. The gallbladder is surgically absent. Solid organs have a normal appearance. There are no renal calculi. There is no hydronephrosis. The course and caliber of the large and small bowel is normal. The uterus is prominent which is expected for the postoperative state. There is no uterine hematoma, abscess or fluid collection on this series. Distal ureters and urinary bladder are normal. There is no hernia. Osseous structures are age-appropriate. IMPRESSION: 1. No renal calculi or hydronephrosis. 2. Prominent uterus. No hemoperitoneum, abscess or inflammation identified. Dictated by: Dictated on workstation # [id number] Dict: 03/22/202139 Trans: 03/22/202145 [facility] [id number] Interpreted by: DAVE NOEL Electronically signed by: DAVE NOEL 03/22/202145 (RANJANA JULIEN MD) Departure Impression Primary Impression: Left upper quadrant abdominal pain Additional Impressions: Urinary tract infection Qualified Codes: N39.0 - Urinary tract infection, site not specified Sinus bradycardia Disposition: 01 HOME, SELF-CARE Condition: Improved Departure-Patient Inst. Referrals: NO,LOCAL PHYSICIAN (PCP) Primary Care Physician SAMANTHA NINA (Family) Primary Care Physician Patient Instructions: Gastritis (DC), Severe Abdominal Pain, Adult (DC), Urinary Tract Infection, Adult (DC) Add. Discharge Instructions: Pain should gradually improve over the next couple of weeks. Continue taking your antacid medication for the next month and the Carafate (sucralfate) for the next 10 days. Avoid the following: Eating large meals, eating close to bedtime, caffeine, carbonation, chocolate, citrus fruits and juices, tomato products, mints, spicy foods, alcohol, tobacco, greasy foods, NSAID medications such as ibuprofen or naproxen, or anything else you know irritates your stomach. Follow-up with your primary care provider soon as possible. Return to care in the ER if symptoms worsen despite following these instructions. Scripts Sucralfate (Carafate) 1 Gm Tablet 1 GM PO QID, #40 TAB More effective if crushed/dissolved in 5-10 ml water to slurry. Take 30 min before meals and bedtime Prov: RANJANA JULIEN MD 03/22/20 Omeprazole (Omeprazole) 20 Mg Tablet.dr 20 MG PO BID, #60 TAB Prov: RANJANA JULIEN MD 03/22/20 Cephalexin (Keflex) 500 Mg Capsule 500 MG PO TID, #20 CAP Prov: RANJANA JULIEN MD 03/22/20 I personally interviewed and examined this patient along with Tate Marlow, MS3 . I have reviewed his documentation and agree with his history, physical and assessments except where otherwise documented. Patient's Presentation was suspicious for ureteral stone. I discussed risks and benefits of CT scan with the patient. She elected to proceed with CT scan. No ureteral stone or evidence of hydronephrosis was identified. Pain was initially treated with Tor adol. This had some initial benefit but pain did rebound. I later treated with Pepcid, Zofran, and GI cocktail. She had a moderate amount of pain relief. I am suspicious pain may be of gastric source such as ulcer or gastritis. Patient was treated appropriately and given return precautions. urinalysis also suggested urinary tract infection. She was treated with Keflex. Patient was also noted to have a sinus bradycardia. She was asymptomatic, denying lightheadedness, dizziness, or shortness of breath. She is a young adult who is physically active and exercises. EKG was otherwise unremarkable. She was strongly advised to follow-up with her primary care provider about the bradycardia. (RANJANA JULIEN MD) KAYLA MARLOW MED STUDENT Mar 22, 2020 20:43 RANJANA JULIEN MD Mar 22, 2020 23:44
[2020-03-22] MEDS ORDERED: KETOROLAC 30 MG/ML VIAL IVP ONE (20:45)
[2020-03-22 20:48] LABS: BILIRUBIN,URINE NEGATIVE (NEGATIVE); CLARITY,URINE CLOUDY; COLOR,URINE YELLOW; GLUCOSE, URINE (UA) NEGATIVE (NEGATIVE); KETONES,URINE NEGATIVE (NEGATIVE); LEUKOCYTE ESTERASE ,URINE 1+ (NEGATIVE); NITRITE,URINE NEGATIVE (NEGATIVE); PROTEIN,URINE NEGATIVE (NEGATIVE)
[2020-03-22 20:48] LABS: BASOPHILS # (AUTO) 0.1 10^3/uL (0.0-0.1); BASOPHILS % (AUTO) 1 % (0-10); EOSINOPHILS # (AUTO) 0.9 10^3/uL (0.0-0.3); EOSINOPHILS % (AUTO) 12 % (0-10); HEMATOCRIT 42 % (35-52); HEMOGLOBIN 13.4 g/dL (11.5-16.0); LYMPHOCYTES # (AUTO) 2.5 10^3/uL (1.0-4.0); LYMPHOCYTES % (AUTO) 35 % (12-44); MEAN CORPUSCULAR HEMOGLOBIN 27 pg (25-34); MEAN CORPUSCULAR HGB CONC 32 g/dL (32-36); MEAN CORPUSCULAR VOLUME 83 fL (80-99); MEAN PLATELET VOLUME 10.5 fL (9.0-12.2); MONOCYTES # (AUTO) 0.4 10^3/uL (0.0-1.0); MONOCYTES % (AUTO) 5 % (0-12); NEUTROPHILS # (AUTO) 3.4 10^3/uL (1.8-7.8); NEUTROPHILS % (AUTO) 47 % (42-75); PLATELET COUNT 250 10^3/uL (130-400); WHITE BLOOD COUNT 7.2 10^3/uL (4.3-11.0)
[2020-03-22 20:56] LABS: BACTERIA,URINE TRACE /HPF
[2020-03-22 21:03] LABS: ALBUMIN 4.6 GM/DL (3.2-4.5); CHLORIDE 100 MMOL/L (98-107); POTASSIUM 4.1 MMOL/L (3.6-5.0); SODIUM 140 MMOL/L (135-145)
[2020-03-22 21:04] LABS: CALCIUM 9.6 MG/DL (8.5-10.1)
[2020-03-22 21:05] LABS: GLUCOSE 96 MG/DL (70-105); TOTAL PROTEIN 7.7 GM/DL (6.4-8.2)
[2020-03-22 21:06] LABS: CARBON DIOXIDE 26 MMOL/L (21-32)
[2020-03-22 21:07] LABS: BILIRUBIN,TOTAL 0.4 MG/DL (0.1-1.0)
[2020-03-22 21:09] LABS: ALKALINE PHOSPHATASE 116 U/L (40-136); CREATININE SERUM 1.07 MG/DL (0.60-1.30); GFR ESTIMATED > 60
[2020-03-22 21:10] LABS: BUN/CREATININE RATIO 12
[2020-03-22 21:12] LABS: ALANINE AMINOTRANSFERASE 13 U/L (0-55)
[2020-03-22] MEDS ORDERED: FAMOTIDINE 20MG/2ML IV (PEPCID) IV STA (21:41)
--- NOTE | 2020-03-22 21:44 | Diagnostic Imaging Report ---
PROCEDURE: CT urinary tract, rule out kidney stone. TECHNIQUE: Multiple contiguous axial images were obtained through the abdomen and pelvis without the use of intravenous contrast. Auto Exposure Controls were utilized during the CT exam to meet ALARA standards for radiation dose reduction. INDICATION: Flank pain, . COMPARISON: None. FINDINGS: Lung bases are clear. The gallbladder is surgically absent. Solid organs have a normal appearance. There are no renal calculi. There is no hydronephrosis. The course and caliber of the large and small bowel is normal. The uterus is prominent which is expected for the postoperative state. There is no uterine hematoma, abscess or fluid collection on this series. Distal ureters and urinary bladder are normal. There is no hernia. Osseous structures are age-appropriate. IMPRESSION: 1. No renal calculi or hydronephrosis. 2. Prominent uterus. No hemoperitoneum, abscess or inflammation identified. Dictated by: Dictated on workstation # [id number]
[2020-03-22] MEDS ORDERED: ANTACID SUSP 30 ML UDC (MYLANTA) PO ONE (21:45)
[2020-03-22] MEDS ORDERED: ONDANSETRON 4 MG/2 ML (SDV) Z0FRAN IVP ONE (21:45)
[2020-03-22] MEDS ORDERED: LIDOCAINE 2% VISCOUS 15 ML UDC PO ONE (21:45)
--- NOTE | 2020-03-22 21:50 | NUR ---
THIS RN NOTICED THAT PT WAS BRADYCARDIC, SO DR. ARAUZ WAS NOTIFIED. PT WAS PLACED ON MONITOR.
[2020-03-22] MEDS ORDERED: PANTOPRAZOLE 40 MG (PROTONIX) VIAL IV ONE (23:00)
[2020-03-22] MEDS ORDERED: CEPHALEXIN 250 MG (KEFLEX) CAP PO ONE (23:45)
[2020-03-22] MEDS ORDERED: OMEP20TA7 PO (23:45)
[2020-03-22] MEDS ORDERED: SUCR1TAB36 PO (23:45)
[2020-03-22] MEDS ORDERED: CEPH-507 PO (23:45)
[2020-03-23] VITALS: BP 125/90
== END 2020-03-23 | disposition home or self-care (01) ==
LOC: EDUNIT# 20:25 → ER 20:26
DX: R10.12 Left upper quadrant pain (principal); N39.0 Urinary tract infection, site not specified; R00.1 Bradycardia, unspecified; K21.9 Gastro-esophageal reflux disease without esophagitis; Z87.891 Personal history of nicotine dependence
CPT/HCPCS: 36415; 74176; 80053; 81000; 83690; 85025; 86141; 87088; 93005; 93041

== ENCOUNTER 2020-05-04 05:29 | Outpatient (RCR) | payer BC ==
[~2020-05-04] VITALS: Ht 152 cm; Wt 54.0 kg
[~2020-05-04 05:29] MED LIST changes: +CEPH-507 PO; +OMEP20TA7 PO; +PANT40TA52 PO; +SUCR1TAB36 PO
== END 2020-05-04 10:51 | disposition home or self-care (01) ==
LOC: PREOP 05:29
PROVIDERS: ATTEND Surgery
DX: Z01.812 Encounter for preprocedural laboratory examination (principal); K21.9 Gastro-esophageal reflux disease without esophagitis; Z20.828 Contact with and (suspected) exposure to other viral communicable diseases
CPT/HCPCS: 87635

== ENCOUNTER 2020-05-06 10:24 | Day surgery (SDC) | payer BC ==
--- NOTE | 2020-05-01 06:46 | HISTORY AND PHYSICAL ---
DATE OF SERVICE: DATE OF ADMISSION: 05/06/2020. HISTORY OF PRESENT ILLNESS: The patient is a 30-year-old female, who has had a longstanding history of gastroesophageal reflux disease. She underwent an EGD and was found to have a significant size hiatal hernia approximately 3 cm in size. She has tried medical management for years; however, unsuccessful. She then underwent a laparoscopic type 2 hiatal hernia repair as well as a Zacarias fundoplication on 03/14/2019. Over the past several months, she states that she has had some issues with dysphagia and epigastric burning sensation. She states that breads and dry foods tend to cause of dysphagia and a substernal pressure sensation. She states because of this, she has lost approximately 26 pounds. She does not report any hematemesis, no coffee ground emesis. Her bowel movements are somewhat normal. She likely has a lower esophageal stricture. PAST MEDICAL HISTORY: Gastroesophageal reflux disease. PAST SURGICAL HISTORY: Laparoscopic cholecystectomy 07/2014, right hand ORIF 07/2013, hiatal hernia repair and Zacarias fundoplication 03/2019, right ankle bone spur excision. ALLERGIES: No known drug allergies. MEDICATIONS: Citalopram 20 mg daily. SOCIAL HISTORY: Negative smoke. Rare alcohol. FAMILY HISTORY: The patient is adopted. VITAL SIGNS: Blood pressure 130/80, current weight 119.2 pounds at 5 feet 0 inches. REVIEW OF SYSTEMS: Well-nourished female, in no acute distress. She is not experiencing any shortness of breath or difficulty breathing. No chest pain, palpitations, diaphoresis. Intermittent episodes of issues with dysphagia and difficulty swallowing, especially dry foods. No hematemesis, no coffee ground emesis. No diarrhea, constipation, no red blood per rectum, no dark tarry stools. No fever, chills, no recent inadvertent weight loss. All other review of systems negative. PHYSICAL EXAMINATION: CHEST: Clear. Good breath sounds bilaterally. HEART: Regular, no murmurs. EXTREMITIES: No lower extremity edema, negative Homans sign. HEENT: No scleral icterus. NECK: No cervical lymphadenopathy. ABDOMEN: Soft, nontender, nondistended. SKIN: Warm, dry. ASSESSMENT AND PLAN: A 30-year-old female with dysphagia likely secondary to scar tissue formation along the previous hiatal hernia repair as well as a Zacarias fundoplication. This also could be a recurrent hiatal hernia. We will proceed with EGD as well as biopsies as appropriate as well as a balloon dilatation if indicated. Job ID: [id number] DocumentID: [id number] Dictated Date: 04/28/2020 16:17:34 Supervisor Cloth Winding Date: 04/28/2020 16:48:53 Dictated By: DION ARRIOLA MD [facility]
[~2020-05-06] VITALS: Ht 152 cm; Wt 54.0 kg
[2020-05-06] VITALS (11 sets, daily range): BP systolic 108–150; BP diastolic 57–104
[2020-05-06] MEDS ORDERED: NS IV 500 ML 500 ML ONE (10:28)
[2020-05-06] MEDS ORDERED: NS IV 500 ML 500 ML IV PRN (10:32)
[2020-05-06] MEDS ORDERED: fentaNYL INJECTION 100 MCG/2 ML AMP IVP ONE (10:45)
[2020-05-06] MEDS ORDERED: LIDOCAINE JELLY 2% 6 ML SYRINGE MM PRN (10:45)
[2020-05-06] MEDS ORDERED: MIDAZOLAM 5 MG/5 ML (VERSED) VIAL IV ONE (10:45)
[2020-05-06] MEDS ORDERED: HURRICAINE EXT TUBE (BENZOCAINE) XX ONE (10:50)
[2020-05-06] MEDS ORDERED: ONDANSETRON 4 MG/2 ML (SDV) Z0FRAN ONE (11:09)
[2020-05-06] MEDS ORDERED: ONDANSETRON 4 MG/2 ML (SDV) Z0FRAN IVP ONE (11:12)
--- NOTE | 2020-05-06 11:28 | Conscious Sedation/ASA ---
Conscious Sedation Pre-Proced Time 11:00 ASA Score 2 For ASA 3 and 4: Consider anesthesia and medical clearance. Also, for patients with a history of failed moderate sedation consider anesthesia. Airway Lungs Heart ASA score ASA 1: a normal healthy patient ASA 2: a patient with a mild systemic disease (mid diabetes, controlled hypertension, obesity ASA 3: a patient with a severe systemic disease that limits activity (angina, COPD, prior Myocardial infarction) ASA 4: a patient with an incapacitating disease that is a constant threat to life (CHF, renal failure) ASA 5: a moribund patient not expected to survive 24 hrs. (ruptured aneurysm) ASA 6: a declared brain- patient whose organs are being harvested. For emergent operations, add the letter E after the classification Mallampati Classification Grade 2 Sedation Plan Analgesia, Amnesia, Plan communicated to team members, Discussed options with patient/fam, Discussed risks with patient/fam The patient is an appropriate candidate to undergo the planned procedure, sedation, and anesthesia. The patient immediately re-assessed prior to indication. DION ARRIOLA MD May 06, 2020 11:28
--- NOTE | 2020-05-06 11:29 | Progress Note-Pre Operative ---
Pre-Operative Progress Note H&P Reviewed The H&P was reviewed, patient examined and no changes noted. Date Seen by Provider: May 06, 2020 Time Seen by Provider: 11:00 Date H&P Reviewed: May 06, 2020 Time H&P Reviewed: 11:00 Pre-Operative Diagnosis: GERD, dysphagia DION ARRIOLA MD May 06, 2020 11:29
[2020-05-06] MEDS ORDERED: HYDROcodone/APAP 5 MG/325 MG (LORTAB) TAB PO PRN (11:30)
[2020-05-06] MEDS ORDERED: ONDANSETRON 4 MG/2 ML (SDV) Z0FRAN IVP PRN (11:30)
[2020-05-06] MEDS ORDERED: ACETAMINOPHEN 325 MG TABLET PO PRN (11:30)
[2020-05-06] MEDS ORDERED: morphine INJ 10 MG/ML 1ML (SYR OR VIAL) IVP PRN ×2 (11:30)
--- NOTE | 2020-05-06 11:30 | Discharge Inst-Surgical ---
D/C Lap Instructions-ZEINAB Follow Up Activity as tolerated High Fiber Diet 25g or more per day Avoid Alcohol, Caffeine, Spicy [place] and Acid foods. Drink 64 fluid oz or more of fluids per day. Symptoms to Report: Fever over 101 degree F, Nausea/Vomiting If any problems/questions: Contact your physician or go to Emergency Room DION ARRIOLA MD May 06, 2020 11:30
[2020-05-06] MEDS ORDERED: LIDOCAINE JELLY 2% 6 ML SYRINGE ONE (12:15)
[2020-05-06] MEDS ORDERED: fentaNYL INJECTION 100 MCG/2 ML AMP ONE ×2 (12:15→12:16)
[2020-05-06] MEDS ORDERED: HURRICAINE EXT TUBE (BENZOCAINE) ONE (12:15)
[2020-05-06] MEDS ORDERED: MIDAZOLAM 5 MG/5 ML (VERSED) VIAL ONE ×2 (12:15→12:16)
--- NOTE | 2020-05-06 21:16 | OPERATIVE REPORT ---
DATE OF SERVICE: 05/06/2020 PREOPERATIVE DIAGNOSES: Dysphagia, weight loss. POSTOPERATIVE DIAGNOSES: Reflux esophagitis between stage II and III with a mild distal esophageal stricture, intact previous hiatal hernia repair as well as a Zacarias fundoplication. Moderate gastritis. PROCEDURE: EGD with biopsy and balloon dilatation. SURGEON: Dion Arriola MD ANESTHESIA: Conscious sedation. ESTIMATED BLOOD LOSS: Minimal. FINDINGS: Same as postoperative diagnoses. DISPOSITION: The patient tolerated the procedure well. INDICATIONS: The patient is a 30-year-old female with a long-standing history of gastroesophageal reflux disease. She underwent an EGD and was found to have significant size hiatal hernia 3 cm in size. She tried medical management; however, was unsuccessful hiatal hernia repair as well as a Zacarias fundoplication for type 2 hiatal hernia on 03/14/2019. Over the past few months, she has developed dysphagia with epigastric burning sensation and taste of breads and dry foods cause the worse amount of dysphagia. Because of this, she has lost approximately 26 pounds. DESCRIPTION OF PROCEDURE: The patient was brought to the endoscopy suite, laid in the left lateral decubitus position. After adequate IV pain and sedative medications and conscious sedation anesthesia, the mouthpiece was applied. The endoscope was placed in the mouth, visualizing the pharynx and hypopharyngeal region. Vocal cords, epiglottis and vallecula identified and appeared to be normal. Endoscope was then gently intubated. The esophageal opening and esophagus insufflated. The endoscope was then advanced through the first, second and third portion of esophagus at the level of GE junction, reflux esophagitis stage II and III identified with what appeared to be a mild distal esophageal stricture. A biopsy was taken of the GE junction with forceps with visualization of good hemostasis. The endoscope was then advanced into the stomach and endoscope retroflexed visualizing an intact previous hiatal hernia repair as well as a Zacarias fundoplication. There was a mild to moderate gastritis was noted. No formal ulcerations, polyps or neoplasms. A biopsy was taken of the antrum to rule out H. pylori with visualization of good hemostasis. Endoscope was then advanced to the pylorus and the first and second portion of the duodenum, which appeared normal with no distal obstructions. We then proceeded with balloon dilatation of distal esophageal stricture and balloon was placed in the stomach and pulled back to the area of stricture. We then proceeded with 2 and then 4 as well as 5 atmospheres of pressure and felt moderate resistance. We were able to slowly go to 6 atmospheres of pressure or 20 mm in luminal diameter with moderate resistance and left this in place for 60 seconds. The balloon was then desufflated and removed with visualization of good hemostasis as well as no mucosal tears. The endoscope was then slowly withdrawn while taking a second look and suctioning residual air with no additional findings. The patient tolerated the procedure well. We will recommend the necessary lifestyle and diet accommodation including small and more frequent meals, avoiding eating at night as well as head elevation while lying supine. Hopefully, with the balloon dilatation, this will help with her episodes of dysphagia. In other scenarios status post Zacarias fundoplication, she may have recurrence of the stricture and if that is the case, she will need repeat dilatation and we will have her follow up. Job ID: [id number] DocumentID: [id number] Dictated Date: 05/06/2020 13:28:26 Distribution Tech Date: 05/06/2020 21:15:09 Dictated By: DION ARRIOLA MD
== END 2020-05-06 14:15 | disposition home or self-care (01) ==
LOC: ENDO 10:24
PROVIDERS: ATTEND Surgery
DX: K21.00 Gastro-esophageal reflux disease with esophagitis, without bleeding (principal); K22.2 Esophageal obstruction; K44.9 Diaphragmatic hernia without obstruction or gangrene; K29.70 Gastritis, unspecified, without bleeding; Z90.49 Acquired absence of other specified parts of digestive tract
CPT/HCPCS: 84703; 88305

== ENCOUNTER 2020-09-23 17:10 | Emergency (ER) | payer BC ==
[~2020-09-23] VITALS: Ht 152 cm; Wt 54.0 kg
[2020-09-23] MEDS ORDERED: KETOROLAC 30 MG/ML VIAL IVP STA (17:44)
[2020-09-23] MEDS ORDERED: diphenhydrAMINE 50 MG/ML INJ (BENADRYL) IV STA (17:44)
[2020-09-23] MEDS ORDERED: PROCHLORPERAZINE 10 MG/2ML INJ (COMPAZINE) IV ONE (17:45)
[2020-09-23] MEDS ORDERED: NS IV 1000 ML 1,000 ML IV SCH (17:45)
--- NOTE | 2020-09-23 18:17 | ED Headache ---
General Chief Complaint: Head/Cervical Problems Stated Complaint: HEADACHE Nursing Triage Note: Patient states that she began taking citalopram approximately 8weeks ago and began experiencing headaches shortly after that. Patient states she was prescribed topamax shortly after to help with the headaches. She states tonight she is experiencing the most severe headche of her life. She states her headache started around 1400 and then she took topamax at 1415 and tylenol at 1530 without relief. She states the pain is in the left side of her neck and radiates all over her head and that she has been experiencing nausea. Nursing Sepsis Screen: No Definite Risk History of Present Illness Date Seen by Provider: Sep 23, 2020 Time Seen by Provider: 17:40 Initial Comments 30-year-old female presents for headache that began at 1400 today. She tried Tylenol and Topamax with no improvement in her symptoms. She has been struggling with headaches intermittently. She reports frontal head pain that radiates to her neck. She has nausea and photophobia. she has not vomited. Timing/Duration: 4-6 hours Severity/Quality: moderate Location: frontal Prior Headaches/Recent Trauma: frequent headaches Associated Symptoms: nausea/vomiting; No nasal congestion, No sinus infection, No stiff neck, No vision changes Allergies and Home Medications Allergies Coded Allergies: No Known Drug Allergies (Unverified , 03/06/19) Home Medications Citalopram Hydrobromide 20 Mg Tablet, 20 MG PO DAILY, (Reported) Pantoprazole Sodium 40 Mg Tablet.dr, 40 MG PO DAILY, (Reported) Patient Home Medication List Home Medication List Reviewed: Yes Review of Systems Review of Systems Constitutional: no symptoms reported, see HPI Gastrointestinal: see HPI; No constipation, No diarrhea; nausea; No vomiting Psychiatric/Neurological: See HPI, Headache All Other Systems Reviewed Negative Unless Noted: Yes Past Wudfppk-Lauewr-Yxijmy Hx Past Med/Social Hx: Reviewed Nursing Past Med/Soc Hx Patient Social History Alcohol Use: Denies Use Number of Drinks Today: AA Alcohol Beverage of Choice: Beer Smoking Status: Former Smoker Type Used: Cigarettes Former Smoker, Quit: Jun 12, 2019 2nd Hand Smoke Exposure: Yes Recent Infectious Disease Expo: No Recent Hopitalizations: Yes (Feb-) Immunizations Up To Date Tetanus Booster (TDap): Unknown Date of Influenza Vaccine: Mar 16, 2020 Seasonal Allergies Seasonal Allergies: Yes Past Medical History Surgeries: Yes (D&C, R HAND FX/ORIF, BONE SPURS FROM ANKLE, WISDOM TEETH,HIATAL HERNIA) Gallbladder, Orthopedic Respiratory: No Asthma Currently Using CPAP: No Currently Using BIPAP: No Cardiac: No Neurological: Yes Headaches /Migraines Reproductive Disorders: No Female Reproductive Disorders: Ovarian Cyst Sexually Transmitted Disease: No HIV/AIDS: No Genitourinary: No Bladder Infection Gastrointestinal: Yes Gastroesophageal Reflux, Chronic Constipation Musculoskeletal: Yes (ankle) Arthritis Endocrine: No HEENT: Yes (CONTACTS) Loss of Vision: Denies Hearing Impairment: Denies Cancer: No Psychosocial: Yes Anxiety Integumentary: No Blood Disorders: No Adverse Reaction/Blood Tranf: No (N/A) Family Medical History No Pertinent Family Hx Physical Exam Vital Signs Vital Signs - First Documented 09/23/20 17:35 Pulse 86 Resp 16 B/P (MAP) 133/82 (99) Pulse Ox 98 O2 Delivery Room Air Capillary Refill : Less Than 3 Seconds Height, Weight, BMI Height: 5'0.00" Weight: 135lbs. 0.0oz. [id number]; 23.00 BMI Method:Stated General Appearance: WD/WN, mild distress (Secondary to pain) HEENT: PERRL/EOMI, normal ENT inspection, TMs normal, pharynx normal Neck: non-tender, full range of motion, supple, normal inspection Cardiovascular: normal peripheral pulses, regular rate, rhythm Respiratory: chest non-tender, lungs clear, normal breath sounds Gastrointestinal: normal bowel sounds, non tender, soft Extremities: normal range of motion, non-tender, normal inspection, no pedal edema, no calf tenderness, normal capillary refill Psychiatric: alert, oriented x 3, depressed affect Crainal Nerves: normal hearing, normal speech, PERRL Coordination/Gait: normal finger to nose, normal gait Motor/Sensory: no motor deficit, no sensory deficit Skin: normal color, warm/dry Progress/Results/Core Measures Results/Orders Lab Results Laboratory Tests Test 09/23/20 18:20 Range/Units Urine Color YELLOW Urine Clarity CLEAR Urine pH 6.5 5-9 Urine Specific [place] 1.015 L 1.016-1.022 Urine Protein NEGATIVE NEGATIVE Urine Glucose (UA) NEGATIVE NEGATIVE Urine Ketones NEGATIVE NEGATIVE Urine Nitrite NEGATIVE NEGATIVE Urine Bilirubin NEGATIVE NEGATIVE Urine Urobilinogen 0.2 < = 1.0 MG/DL Urine Leukocyte Esterase NEGATIVE NEGATIVE Urine RBC (Auto) NEGATIVE NEGATIVE Urine RBC NONE /HPF Urine WBC NONE /HPF Urine Squamous Epithelial Cells 2-5 /HPF Urine Crystals NONE /LPF Urine Bacteria NEGATIVE /HPF Urine Casts NONE /LPF Urine Mucus NEGATIVE /LPF Urine Culture Indicated NO My Orders Orders - CAN LAWSON Urine Bedside (09/23/20 17:27) Ua Culture If Indicated (09/23/20 17:27) Ed Iv/Invasive Line Start (09/23/20 17:44) Ns Iv 1000 Ml (Sodium Chloride 0.9%) (09/23/20 17:45) Prochlorperazine Injection (Compazine In (09/23/20 17:45) Ketorolac Injection (Toradol Injection) (09/23/20 17:44) Diphenhydramine Injection (Benadryl Inje (09/23/20 17:44) Medications Given in ED Current Medications Medications Dose Ordered Sig/Cary Route Start Time Stop Time Status Last Admin Dose Admin Prochlorperazine Edisylate 10 mg ONCE ONCE IV 09/23/20 17:45 09/23/20 17:53 DC 09/23/20 18:06 10 MG Vital Signs/I&O 09/23/20 17:35 Pulse 86 Resp 16 B/P (MAP) 133/82 (99) Pulse Ox 98 O2 Delivery Room Air Blood Pressure Mean: 99 Progress Progress Note : Time: 17:40 Progress Note Patient seen and evaluated will give normal saline 1 L per IV, Compazine 10 mg IV, Toradol 30 mg IV and Benadryl 25 mg. 1835 patient reports headache is improving. Nausea is better. Discharge instructions and return precautions reviewed with her. Departure Impression Primary Impression: Headache Qualified Codes: G44.209 - Tension-type headache, unspecified, not intractable Disposition: 01 HOME, SELF-CARE Condition: Improved Departure-Patient Inst. Decision time for Depature: 18:35 Referrals: NO,LOCAL PHYSICIAN (PCP) Primary Care Physician SAMANTHA NINA (Family) Primary Care Physician Patient Instructions: Migraines (DC) Add. Discharge Instructions: Continue to take your home medications for headaches. Follow-up with your primary care provider if your symptoms are not improving or worsen. Return to the emergency department for new, urgent healthcare needs. All discharge instructions reviewed with patient and/or family. Voiced understanding. CAN LAWSON BUSH REGENERATOR Sep 23, 2020 18:17
[2020-09-23 18:30] LABS: BILIRUBIN,URINE NEGATIVE (NEGATIVE); CLARITY,URINE CLEAR; COLOR,URINE YELLOW; GLUCOSE, URINE (UA) NEGATIVE (NEGATIVE); KETONES,URINE NEGATIVE (NEGATIVE); LEUKOCYTE ESTERASE ,URINE NEGATIVE (NEGATIVE); NITRITE,URINE NEGATIVE (NEGATIVE); PH,URINE 6.5 (5-9); PROTEIN,URINE NEGATIVE (NEGATIVE)
[2020-09-23 18:38] LABS: BACTERIA,URINE NEGATIVE /HPF
[2020-09-23 18:56] VITALS: BP 117/65
== END 2020-09-23 18:57 | disposition home or self-care (01) ==
LOC: EDUNIT# 17:10 → ER 17:11
DX: R51.9 Headache, unspecified (principal); I10 Essential (primary) hypertension; K21.9 Gastro-esophageal reflux disease without esophagitis; Z87.891 Personal history of nicotine dependence
CPT/HCPCS: 81000; 84703

== ENCOUNTER 2020-10-06 05:28 | Outpatient (RCR) | payer BC ==
[~2020-10-06] VITALS: Ht 152.4 cm; Wt 52.0 kg
== END 2020-10-06 09:32 | disposition home or self-care (01) ==
LOC: PREOP 05:28
PROVIDERS: ATTEND Surgery
DX: Z01.812 Encounter for preprocedural laboratory examination (principal); R13.10 Dysphagia, unspecified; Z20.822 Contact with and (suspected) exposure to COVID-19
CPT/HCPCS: 87635

== ENCOUNTER 2020-10-07 12:28 | Day surgery (SDC) | payer BC ==
[2020-10-07] VITALS (13 sets, daily range): BP systolic 119–136; BP diastolic 60–78
[~2020-10-07] VITALS: Ht 152.4 cm; Wt 52.0 kg
[2020-10-07] MEDS ORDERED: NS IV 500 ML 500 ML ONE (12:31)
[2020-10-07] MEDS ORDERED: HURRICAINE EXT TUBE (BENZOCAINE) XX PRN (12:45)
[2020-10-07] MEDS ORDERED: NS IV 500 ML 500 ML IV PRN (12:45)
[2020-10-07] MEDS ORDERED: fentaNYL INJ 100 MCG/2 ML AMP IVP ONE (12:45)
[2020-10-07] MEDS ORDERED: MIDAZOLAM 5 MG/5 ML (VERSED) VIAL IV ONE (12:45)
[2020-10-07] MEDS ORDERED: LIDOCAINE JELLY 2% 6 ML SYRINGE MM PRN (12:45)
--- NOTE | 2020-10-07 12:52 | Conscious Sedation/ASA ---
Conscious Sedation Pre-Proced Time 12:30 ASA Score 1 For ASA 3 and 4: Consider anesthesia and medical clearance. Also, for patients with a history of failed moderate sedation consider anesthesia. Airway Lungs Heart ASA score ASA 1: a normal healthy patient ASA 2: a patient with a mild systemic disease (mid diabetes, controlled hypertension, obesity ASA 3: a patient with a severe systemic disease that limits activity (angina, COPD, prior Myocardial infarction) ASA 4: a patient with an incapacitating disease that is a constant threat to life (CHF, renal failure) ASA 5: a moribund patient not expected to survive 24 hrs. (ruptured aneurysm) ASA 6: a declared brain- patient whose organs are being harvested. For emergent operations, add the letter E after the classification Mallampati Classification Grade 2 Sedation Plan Analgesia, Amnesia, Plan communicated to team members, Discussed options with patient/fam, Discussed risks with patient/fam The patient is an appropriate candidate to undergo the planned procedure, sedation, and anesthesia. The patient immediately re-assessed prior to indication. DION ARRIOLA MD Oct 07, 2020 12:52
--- NOTE | 2020-10-07 12:52 | Progress Note-Pre Operative ---
Pre-Operative Progress Note H&P Reviewed The H&P was reviewed, patient examined and no changes noted. Date Seen by Provider: Oct 07, 2020 Time Seen by Provider: 12: Date H&P Reviewed: Oct 07, 2020 Time H&P Reviewed: 12:30 Pre-Operative Diagnosis: recurrent dysphagia DION ARRIOLA MD Oct 07, 2020 12:52
--- NOTE | 2020-10-07 12:53 | Discharge Inst-Surgical ---
D/C Lap Instructions-ZEINAB Follow Up Activity as tolerated High Fiber Diet 25g or more per day Avoid Alcohol, Caffeine, Spicy [place] and Acid foods. Drink 64 fluid oz or more of fluids per day. Symptoms to Report: Fever over 101 degree F, Nausea/Vomiting If any problems/questions: Contact your physician or go to Emergency Room DION ARRIOLA MD Oct 07, 2020 12:53
[2020-10-07] MEDS ORDERED: ACETAMINOPHEN 325 MG TABLET PO PRN (13:00)
[2020-10-07] MEDS ORDERED: morphine INJ 10 MG/ML 1ML (SYR OR VIAL) IVP PRN ×2 (13:00)
[2020-10-07] MEDS ORDERED: HYDROcodone/APAP 5 MG/325 MG (LORTAB) TAB PO PRN (13:00)
[2020-10-07] MEDS ORDERED: ONDANSETRON 4 MG/2 ML (SDV) Z0FRAN IVP PRN (13:00)
[2020-10-07] MEDS ORDERED: fentaNYL INJ 100 MCG/2 ML AMP ONE (13:29)
[2020-10-07] MEDS ORDERED: LIDOCAINE JELLY 2% 6 ML SYRINGE ONE (13:29)
[2020-10-07] MEDS ORDERED: HURRICAINE EXT TUBE (BENZOCAINE) ONE (13:29)
[2020-10-07] MEDS ORDERED: MIDAZOLAM 5 MG/5 ML (VERSED) VIAL ONE ×2 (13:29)
[2020-10-07] MEDS ORDERED: ONDANSETRON 4 MG/2 ML (SDV) Z0FRAN ONE (13:36)
--- NOTE | 2020-10-07 14:48 | Progress Note-Post Operative ---
Post-Operative Progess Note Surgeon (s)/Utility Person (s) Surgeon DION ARRIOLA MD Utility Person: none Pre-Operative Diagnosis recurrent dysphagia Post-Operative Diagnosis reflux esophagitis(stage 2), intact HH repair and ana, mild-moderate gastritis. Procedure & Operative Findings Date of Procedure 10/07/20 Procedure Performed/Findings EGD with bx and balloon dilatation. Anesthesia Type cs Estimated Blood Loss Estimated blood loss (mL): minimal Specimens/Packing Specimens Removed ge jxn, antrum DION ARRIOLA MD Oct 07, 2020 14:48
--- NOTE | 2020-10-07 18:49 | OPERATIVE REPORT ---
DATE OF SERVICE: 10/07/2020 ATTENDING PRIMARY AUTO PARTS MANAGER: Sammi Nicole APRN. PREOPERATIVE DIAGNOSES: Dysphagia and gastroesophageal reflux disease. POSTOPERATIVE DIAGNOSES: Reflux esophagitis stage II with a mild distal esophageal stricture, intact previous hiatal hernia repair and Zacarias fundoplication, mild to moderate gastritis and no distal obstructions. PROCEDURES PERFORMED: EGD with biopsy and balloon dilatation. SURGEON: Dion Arriola MD. ANESTHESIA: Conscious sedation. ESTIMATED BLOOD LOSS: Minimal. FINDINGS: Reflux esophagitis stage II with a mild distal esophageal stricture, intact previous hiatal hernia repair and Zacarias fundoplication, mild to moderate gastritis and no distal obstructions. DISPOSITION: The patient tolerated the procedure well. INDICATIONS FOR PROCEDURE: The patient is a 22-year-old female known to us. She has had a longstanding history of gastroesophageal reflux disease and underwent an EGD and was found to have a significant size hiatal hernia approximately 3 cm in size. She tried medical management; however, was unsuccessful and then underwent a hiatal hernia repair as well as a Zacarias fundoplication for a type 2 hiatal hernia on 03/14/2019. She then developed dysphagia and we had done an EGD and balloon dilatation on her on 05/06/2020. She states that since that time, she has had reoccurrence of dysphagia and has lost weight because of it. 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 She also has had a significant amount of stress from her work in recent weeks. DESCRIPTION OF PROCEDURE: The patient was brought to the endoscopy suite and laid in the left lateral decubitus position. After adequate IV pain and sedative medications and conscious sedation anesthesia, the mouthpiece was applied. The endoscope was then placed in the mouth, visualizing the pharynx and hypopharyngeal region. Vocal cords, epiglottis and vallecula were identified and appeared to be normal. The endoscope was then gently intubated into the esophageal opening and esophagus insufflated. The endoscope was then advanced to the first, second and third portion of the esophagus at the level of the GE junction, a reflux esophagitis stage II identified. There was also a mild distal esophageal stricture. No ulcerations. A biopsy was taken of the GE junction with forceps with visualization of good hemostasis. The endoscope was then advanced into the stomach and endoscope retroflexed, visualizing intact previous hiatal hernia repair as well as Zacarias fundoplication with no reoccurrence. There was a mild to moderate gastritis. No formal ulcerations, polyps or any neoplasms of the stomach. A biopsy was taken of the antrum to rule out H. pylori with visualization of good hemostasis. Endoscope was then advanced to the pylorus and the first and second portion of the duodenum, which appeared normal with no distal obstructions. We then proceeded with balloon dilatation of the distal esophageal stricture and the balloon was placed in the stomach and pulled back to the area of the stricture. We then proceeded to 2, 4, then 6 atmospheres of pressure with moderate resistance and 20 mm in luminal diameter and left this in place for approximately 60 seconds. The balloon was then desufflated and removed with visualization of good hemostasis as well as no mucosal tears. The endoscope was then slowly withdrawn while taking a second look and suctioning of residual air with no additional findings. The patient tolerated the procedure well. We will recommend the necessary lifestyle and diet accommodation including small and more frequent meals, avoidance of eating at night as well as chewing thoroughly and taking time during eating meals. We will also recommend that she continue with her Protonix 40 mg daily. If she should have recurrent dysphagia, we will have her follow up for a repeat dilatation. Job ID: [id number] DocumentID: [id number] Dictated Date: 10/07/2020 14:18:05 Doughnut Machine Operator Helper Date: 10/07/2020 18:49:26 Dictated By: DION ARRIOLA MD MTDD
== END 2020-10-07 15:05 | disposition home or self-care (01) ==
LOC: ENDO 12:28
PROVIDERS: ATTEND Surgery
DX: K21.00 Gastro-esophageal reflux disease with esophagitis, without bleeding (principal); K22.2 Esophageal obstruction; K29.70 Gastritis, unspecified, without bleeding; K44.9 Diaphragmatic hernia without obstruction or gangrene; Z79.899 Other long term (current) drug therapy
CPT/HCPCS: 84703; 88305

== ENCOUNTER 2020-11-21 20:28 | Emergency (ER) | payer BC ==
[~2020-11-21] VITALS: Ht 152 cm; Wt 54.4 kg
--- NOTE | 2020-11-21 20:38 | ED Lower Extremity ---
General Chief Complaint: Lower Extremity Stated Complaint: R FOOT INJ Source: patient Exam Limitations: no limitations History of Present Illness Date Seen by Provider: Nov 21, 2020 Time Seen by Provider: 20:38 Allergies and Home Medications Allergies Coded Allergies: No Known Drug Allergies (Verified , 10/07/20) Home Medications Citalopram Hydrobromide 20 Mg Tablet, 20 MG PO DAILY, (Reported) Pantoprazole Sodium 40 Mg Tablet.dr, 40 MG PO DAILY, (Reported) Past [id number]-Iuzasq-Ezhgau Hx Patient Social History Alcohol Use: Denies Use Number of Drinks Today: AA Alcohol Beverage of Choice: Beer Type Used: Cigarettes Former Smoker, Quit: Jun 12, 2018 2nd Hand Smoke Exposure: Yes Recent Hopitalizations: No Immunizations Up To Date Tetanus Booster (TDap): Unknown Date of Influenza Vaccine: Mar 16, 2020 Seasonal Allergies Seasonal Allergies: Yes Past Medical History Surgeries: Yes (D&C, R HAND FX/ORIF, BONE SPURS FROM ANKLE, WISDOM TEETH,HIATAL HERNIA) Gallbladder, Orthopedic Respiratory: No Asthma Currently Using CPAP: No Currently Using BIPAP: No Cardiac: No Neurological: Yes Headaches /Migraines Reproductive Disorders: No Female Reproductive Disorders: Ovarian Cyst Sexually Transmitted Disease: No HIV/AIDS: No Genitourinary: No Bladder Infection Gastrointestinal: Yes Gastroesophageal Reflux, Chronic Constipation Musculoskeletal: Yes (ankle) Arthritis Endocrine: No HEENT: Yes (CONTACTS) Loss of Vision: Denies Hearing Impairment: Denies Cancer: No Psychosocial: Yes Anxiety Integumentary: No Blood Disorders: No Adverse Reaction/Blood Tranf: No (N/A) Family Medical History No Pertinent Family Hx Physical Exam Vital Signs Vital Signs - First Documented 11/21/20 20:38 Temp 37.1 Pulse 52 Resp 20 B/P (MAP) 126/64 (84) Pulse Ox 100 O2 Delivery Room Air Capillary Refill : Height, Weight, BMI Height: 5'0.00" Weight: 135lbs. 0.0oz. 61.661667vg; 22.38 BMI Method:Stated Progress/Results/Core Measures Results/Orders My Orders Orders - ELDON BARTH DIRECTOR APPOINTMENT Ankle, Right, 3 Views (11/21/20 20:37) Hydrocodone/Apap 5/325 Tablet (Lortab 5 (11/21/20 20:45) Medications Given in ED Current Medications Medications Dose Ordered Sig/Cary Route Start Time Stop Time Status Last Admin Dose Admin Acetaminophen/ Hydrocodone Bitart 1 ea ONCE ONCE PO 11/21/20 20:45 11/21/20 20:46 DC 11/21/20 20:43 1 EA Vital Signs/I&O 11/21/20 20:38 Temp 37.1 Pulse 52 Resp 20 B/P (MAP) 126/64 (84) Pulse Ox 100 O2 Delivery Room Air Departure Impression Primary Impression: Contusion of ankle Disposition: HOME, SELF-CARE Condition: Improved Departure-Patient Inst. Decision time for Depature: 21:20 Referrals: NO,LOCAL PHYSICIAN (PCP) Primary Care Physician SAMANTHA NINA (Family) Primary Care Physician Patient Instructions: Acute Pain, Adult Add. Discharge Instructions: Plan: 1. Discharge home. 2. Follow up with your primary care provider if your symptoms persist x1 week. 3. Keep affected site elevated above your heart over the next 72 hours to reduce swelling and pain. 4. Apply ice 20 minutes at a time 4-6x per day. 5. May take hydrocodone as needed every 6 hours for pain use this for severe or breakthrough pain. May use Tylenol in between. Try to avoid ibuprofen this week in case there are any occult fractures. 6. Return to ER for any new, worsening, or concerning symptoms. All discharge instructions reviewed with patient and/or family. Voiced understanding. ELDON BARTH DIRECTOR APPOINTMENT Nov 21, 2020 20:38
[2020-11-21] MEDS ORDERED: HYDROcodone/APAP 5 MG/325 MG (LORTAB) TAB PO ONE (20:45)
--- NOTE | 2020-11-21 21:08 | Diagnostic Imaging Report ---
INDICATION: Dropped dresser on lateral aspect of the right ankle with pain and swelling. FINDINGS: Three views of the right ankle demonstrate normal ossification. No fracture or dislocation is present. IMPRESSION: Normal right ankle. Dictated by: Dictated on workstation # [id number]
[2020-11-21 21:27] VITALS: BP 126/64
== END 2020-11-21 21:29 | disposition home or self-care (01) ==
LOC: EDUNIT# 20:28 → ER 20:29
DX: S90.01XA Contusion of right ankle, initial encounter (principal); K21.9 Gastro-esophageal reflux disease without esophagitis; F41.9 Anxiety disorder, unspecified; Z87.891 Personal history of nicotine dependence; Z77.22 Contact with and (suspected) exposure to environmental tobacco smoke (acute) (chronic); X58.XXXA Exposure to other specified factors, initial encounter
CPT/HCPCS: 73610

== ENCOUNTER 2020-12-30 01:39 | Emergency (ER) | payer BC ==
[~2020-12-30] VITALS: Ht 152 cm; Wt 55.3 kg
[2020-12-30] MEDS ORDERED: diphenhydrAMINE 50 MG/ML INJ (BENADRYL) IVP ONE (01:45)
[2020-12-30] MEDS ORDERED: methylPREDNISolone 125 MG (Solu-MEDROL) VIAL IVP ONE (01:45)
[2020-12-30] MEDS ORDERED: NAPHA/PHEN (NAPHCON-A, OPCON-A) OP SOLN 15 ML BTL OU STA (02:42)
[2020-12-30] MEDS ORDERED: OLOPATADINE 0.1 % OPHTH (PATANOL) 5 ML BTL OU STA (02:46)
[2020-12-30] MEDS ORDERED: TETRACAINE 0.5% OPHTH SOLN 4 ML BTL (SINGLE DOSE ONLY) OP ONE (03:15)
[2020-12-30] MEDS ORDERED: PRD20T PO (03:24)
[2020-12-30] MEDS ORDERED: NPPH15OP OP (03:24)
--- NOTE | 2020-12-30 03:25 | ED General ---
General Chief Complaint: Eye Problems Stated Complaint: EYES SWOLLEN Nursing Triage Note: patient states she woke up at 0045 with swelling of the eyes. patient states blurry vision. unknown reason. Source of Information: Patient Exam Limitations: No Limitations History of Present Illness Date Seen by Provider: Dec 30, 2020 Time Seen by Provider: 01:35 Initial Comments This 30-year-old woman presents to the emergency room with primary complaint of swelling, itching, discomfort, and mildly blurry vision upon waking up in the middle of the night. She was recently seen at [facility] for upper respiratory symptoms and cough. She reports a Covid screen it was negative. She denies any known exposures that could have caused a reaction. Denies any lip, tongue, or throat swelling. Allergies and Home Medications Allergies Coded Allergies: No Known Drug Allergies (Verified , 10/07/20) Home Medications Citalopram Hydrobromide 20 Mg Tablet, 20 MG PO DAILY, (Reported) Naphazoline/Pheniramine 15 Ml Soln, 2 DROPS OP Q6H PRN for ITCHING Prescribed by: RANJANA BERRY on 12/30/20 0324 Pantoprazole Sodium 40 Mg Tablet.dr, 40 MG PO DAILY, (Reported) Prednisone 20 Mg Tab, 20 MG PO DAILY Prescribed by: RANJANA BERRY on 12/30/20 0324 Patient Home Medication List Home Medication List Reviewed: Yes Review of Systems Review of Systems Constitutional: no symptoms reported EENTM: see HPI Respiratory: see HPI Cardiovascular: no symptoms reported Gastrointestinal: no symptoms reported Genitourinary: no symptoms reported : No Musculoskeletal: no symptoms reported Skin: see HPI Psychiatric/Neurological: No Symptoms Reported Hematologic/Lymphatic: No Symptoms Reported Immunological/Allergic: see HPI Past Oirsokm-Bjehza-Prgrzk Hx Patient Social History Tobacco Use?: Yes Tobacco type used: Cigarettes Smoking Status: Former Smoker Smokeless Tobacco Frequency: Never a User Use of E-Cig and/or Vaping Indra: Never a User Substance use?: No Alcohol Use?: No Pt feels they are or have been: No Immunizations Up To Date Tetanus Booster (TDap): Unknown First/Initial COVID19 Vaccinat: Second COVID19 Vaccination Venkat: COVID19 Vaccine Specialty Person: Moderngoldie Seasonal Allergies Seasonal Allergies: Yes Past Medical History Surgeries: Yes (D&C, R HAND FX/ORIF, BONE SPURS FROM ANKLE, WISDOM TEETH,HIATAL HERNIA) Gallbladder, Orthopedic Respiratory: Yes Asthma Currently Using CPAP: No Currently Using BIPAP: No Cardiac: No Neurological: Yes Headaches /Migraines Reproductive Disorders: No Female Reproductive Disorders: Ovarian Cyst Sexually Transmitted Disease: No HIV/AIDS: No Genitourinary: No Bladder Infection Gastrointestinal: Yes Gastroesophageal Reflux, Chronic Constipation Musculoskeletal: Yes (ankle) Arthritis Endocrine: No HEENT: Yes (CONTACTS) Loss of Vision: Denies Hearing Impairment: Denies Cancer: No Psychosocial: Yes Anxiety Integumentary: No Blood Disorders: No Adverse Reaction/Blood Tranf: No (N/A) Family Medical History No Pertinent Family Hx Physical Exam Vital Signs Vital Signs - First Documented 12/30/20 01:39 Temp 36.6 Pulse 76 Resp 20 B/P (MAP) 120/83 (95) Pulse Ox 99 O2 Delivery Room Air Capillary Refill : Less Than 3 Seconds Height, Weight, BMI Height: 5'0.00" Weight: 135lbs. 0.0oz. [id number]; 23.00 BMI Method:Stated General Appearance: No Apparent Distress, WD/WN HEENT: PERRL/EOMI, TMs Normal, Pharynx Normal, Other (Conjunctival and scleral erythema and edema. Pupils equally round and reactive to light with no photosensitivity. 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 Norm as Tested Skin: Normal Color, Warm/Dry, Other (See above) Progress/Results/Core Measures Suspected Sepsis SIRS Temperature: Pulse: 76 Respiratory Rate: 20 Blood Pressure 120 /83 Mean: 95 Results/Orders My Orders Orders - RANJANA ARAUZ MD Diphenhydramine Injection (Benadryl Inje (12/30/20 01:45) Methylprednisolone Sod Succ (Solu-Medrol (12/30/20 01:45) Naphazoline/Pheniramine Ophth (Naphcon-A (12/30/20 09:00) Naphazoline/Pheniramine Ophth (Naphcon-A (12/30/20 02:42) Olopatadine 0.1% Ophth Soln (Patanol 0.1 (12/30/20 02:46) Albuterol Inhaler (Ventolin Hfa) (12/30/20 06:00) Tetracaine 0.5% Ophth Anali Sdv (Tetracai (12/30/20 03:15) Albuterol Inhaler (Ventolin Hfa) (12/30/20 03:28) Medications Given in ED Vital Signs/I&O 12/30/20 12/30/20 01:39 03:37 Temp 36.6 36.6 Pulse 76 76 Resp 20 20 B/P (MAP) 120/83 (95) 120/83 (95) Pulse Ox 99 99 O2 Delivery Room Air Room Air Capillary Refill : Less Than 3 Seconds Blood Pressure Mean: 95 Progress Note : Progress Note Patient experienced about 50% improvement with Solu-Medrol and Benadryl. Suitab le antihistamine ophthalmologic drops were not available in the ER. As an alternative, her eyes were numbed with tetracaine. Prescriptions were provided. Inhaler was given for her bronchoconstriction. Symptoms are likely secondary to non-Covid viral infection. Departure Impression Primary Impression: Acute bronchitis Qualified Codes: J20.9 - Acute bronchitis, unspecified Additional Impressions: Upper respiratory infection Qualified Codes: J06.9 - Acute upper respiratory infection, unspecified Conjunctivitis Qualified Codes: B30.9 - Viral conjunctivitis, unspecified Disposition: 01 HOME, SELF-CARE Condition: Improved Departure-Patient Inst. Decision time for Depature: 03:20 Referrals: NO,LOCAL PHYSICIAN (PCP) Primary Care Physician SAMANTHA NINA (Family) Primary Care Physician Patient Instructions: Conjunctivitis (Pinkeye) (DC), Acute Bronchitis, Adult (DC) Add. Discharge Instructions: You may use the inhaler 2 to 4 puffs every 4 hours as needed for wheezing, shortness of breath, and chest tightness. Sleeping with your head elevated may help with the swelling. You may use ottb-ypa-caongem antihistamine such as Benadryl (diphenhydramine) or nondrowsy antihistamine such as Claritin (loratadine) for itching. Use the eyedrops as prescribed for itching and irritation. Applying a cool moist compress over the closed eyes should help with discomfort and swelling also. Call with questions or concerns. Return to the ER if you have worsening symptoms. All discharge instructions reviewed with patient and/or family. Voiced understanding. Scripts Prednisone (Prednisone) 20 Mg Tab 20 MG PO DAILY, #4 TAB 0 Refills Prov: RANJANA ARAUZ MD 12/30/20 Naphazoline/Pheniramine (Naphcon-A Eye Drops) 15 Ml Soln 2 DROPS OP Q6H PRN for ITCHING, #1 EA Prov: RANJANA ARAUZ MD 12/30/20 RANJANA ARAUZ MD Dec 30, 2020 03:24
[2020-12-30] MEDS ORDERED: RT-ALBUTEROL INHALER HFA (VENTOLIN HFA) 18 GM IH STA (03:28)
[2020-12-30 03:37] VITALS: BP 120/83
[2020-12-30] MEDS ORDERED: RT-ALBUTEROL INHALER HFA (VENTOLIN HFA) 18 GM IH SCH (06:00)
[2020-12-30] MEDS ORDERED: NAPHA/PHEN (NAPHCON-A, OPCON-A) OP SOLN 15 ML BTL OU SCH (09:00)
== END 2020-12-30 03:39 | disposition home or self-care (01) ==
LOC: EDUNIT# 01:39 → ER 01:41
DX: J20.9 Acute bronchitis, unspecified (principal); J06.9 Acute upper respiratory infection, unspecified; H10.9 Unspecified conjunctivitis; K21.9 Gastro-esophageal reflux disease without esophagitis; F41.9 Anxiety disorder, unspecified; Z20.822 Contact with and (suspected) exposure to COVID-19; Z79.899 Other long term (current) drug therapy

== ENCOUNTER 2021-03-11 14:30 | Emergency (ER) | payer BC ==
[~2021-03-11] VITALS: Ht 152.4 cm; Wt 50.0 kg
[~2021-03-11 14:30] MED LIST changes: +NPPH15OP OP; +PRD20T PO
[2021-03-11 16:08] LABS: ALBUMIN 4.3 GM/DL (3.2-4.5); POTASSIUM 3.9 MMOL/L (3.6-5.0)
[2021-03-11 16:09] LABS: CALCIUM 9.6 MG/DL (8.5-10.1)
[2021-03-11 16:11] LABS: BASOPHILS # (AUTO) 0.1 10^3/uL (0.0-0.1); BASOPHILS % (AUTO) 1 % (0-10); EOSINOPHILS # (AUTO) 1.4 10^3/uL (0.0-0.3); EOSINOPHILS % (AUTO) 19 % (0-10); HEMATOCRIT 40 % (35-52); HEMOGLOBIN 13.3 g/dL (11.5-16.0); LYMPHOCYTES # (AUTO) 1.7 10^3/uL (1.0-4.0); LYMPHOCYTES % (AUTO) 22 % (12-44); MEAN CORPUSCULAR HEMOGLOBIN 29 pg (25-34); MEAN CORPUSCULAR HGB CONC 34 g/dL (32-36); MEAN CORPUSCULAR VOLUME 87 fL (80-99); MEAN PLATELET VOLUME 10.6 fL (9.0-12.2); MONOCYTES # (AUTO) 0.5 10^3/uL (0.0-1.0); MONOCYTES % (AUTO) 6 % (0-12); NEUTROPHILS # (AUTO) 3.8 10^3/uL (1.8-7.8); NEUTROPHILS % (AUTO) 52 % (42-75); PLATELET COUNT 209 10^3/uL (130-400); WHITE BLOOD COUNT 7.4 10^3/uL (4.3-11.0)
[2021-03-11 16:12] LABS: BILIRUBIN,TOTAL 0.6 MG/DL (0.1-1.0)
--- NOTE | 2021-03-11 16:13 | ED Abdominal Pain ---
General Chief Complaint: Abdominal/GI Problems Stated Complaint: CONSTIPATION,ABD SWOLLEN, VOMITTING BILE Nursing Triage Note: AMB TO ROOM REPORTS FOR SEVERAL MONTHS HAS BEEN HAVING BOWL PROBLEMS HAS BEEN HAVING EITHER DIARRHEA OR CONSTIPATION. WITH CRAMPING. HAS BEEN SEEN BY DR GIBBONS FOR WAS PUT ON DIET. BUT NOT HELPING. HAD HIATAL HERNIA SURG BY DR GIBBONS Source of Information: Patient Exam Limitations: No Limitations History of Present Illness Date Seen by Provider: Mar 11, 2021 Time Seen by Provider: 15:00 Initial Comments to ER by private vehicle with reports of 1.5-month history of diarrhea several episodes per day with urgency. Diarrhea is dark in nature no obvious blood. She has been following with Dr. Gibbons. He advised a bland diet which she has been on for the past 7 days but denies any improvement. She was to try that before proceeding with scheduling colonoscopy. No fevers or chills. She has not passed any gas today and feels bloated and is concerned she may have a bowel obstruction. Timing/Duration: 1-2 Days Severity/Quality: Cramping Location: Generalized Abdomen Radiation: No Radiation Activities at Onset: None Associated Symptoms: Nausea/Vomiting Allergies and Home Medications Allergies Coded Allergies: No Known Drug Allergies (Verified , 10/07/20) Patient Home Medication List Home Medication List Reviewed: Yes Citalopram Hydrobromide (Citalopram HBr) 20 Mg Tablet, 20 MG PO DAILY, (Reported) Entered as Reported by: DEVONTE DIETZ on 04/30/20 1505 Dicyclomine HCl (Dicyclomine HCl) 10 Mg Capsule, 10 MG PO TID Prescribed by: KAYLA JOAQUIN on 03/11/21 1755 Naphazoline/Pheniramine (Naphcon-A Eye Drops) 15 Ml Soln, 2 DROPS OP Q6H PRN for ITCHING Prescribed by: RANJANA BERRY on 12/30/20 0324 Pantoprazole Sodium (Pantoprazole Sodium) 40 Mg Tablet., 40 MG PO DAILY, (Reported) Entered as Reported by: DEVONTE DIETZ on 04/30/20 1505 Prednisone (Prednisone) 20 Mg Tab, 20 MG PO DAILY Prescribed by: RANJANA BERRY on 12/30/20 0324 Review of Systems Review of Systems Constitutional: see HPI EENTM: No Symptoms Reported Respiratory: No Symptoms Reported Cardiovascular: No Symptoms Reported Gastrointestinal: See HPI, Abdominal Pain, Diarrhea, Nausea Genitourinary: No Symptoms Reported Musculoskeletal: no symptoms reported Skin: no symptoms reported Psychiatric/Neurological: No Symptoms Reported Endocrine: No Symptoms Reported Hematologic/Lymphatic: No Symptoms Reported Past Cjgdmqu-Ezcrby-Gapuhv Hx Patient Social History Tobacco Use?: No Substance use?: No Immunizations Up To Date Tetanus Booster (TDap): Unknown First/Initial COVID19 Vaccinat: August COVID19 Vaccination Venkat: SEPTEMBER COVID19 Vaccine 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 Seasonal Allergies Seasonal Allergies: Yes Past Medical History Surgeries: Yes (D&C, R HAND FX/ORIF, BONE SPURS FROM ANKLE, WISDOM TEETH,HIATAL HERNIA) Gallbladder, Orthopedic Respiratory: Yes Asthma Currently Using CPAP: No Currently Using BIPAP: No Cardiac: No Neurological: Yes Headaches /Migraines Reproductive Disorders: No Female Reproductive Disorders: Ovarian Cyst Sexually Transmitted Disease: No HIV/AIDS: No Genitourinary: No Bladder Infection Gastrointestinal: Yes Gastroesophageal Reflux, Chronic Constipation Musculoskeletal: Yes (ankle) Arthritis Endocrine: No HEENT: Yes (CONTACTS) Loss of Vision: Denies Hearing Impairment: Denies Cancer: No Psychosocial: Yes Anxiety Integumentary: No Blood Disorders: No Adverse Reaction/Blood Tranf: No (N/A) Family Medical History No Pertinent Family Hx Physical Exam Vital Signs Vital Signs - First Documented 03/11/21 03/11/21 14:50 18:14 Temp 37.2 Pulse 77 Resp 18 B/P (MAP) 119/70 (86) Pulse Ox 98 O2 Delivery Room Air Capillary Refill : Less Than 3 Seconds Height/Weight/BMI Height: 5'0.00" Weight: 135lbs. 0.0oz. [id number]; 21.00 BMI Method:Stated General Appearance: WD/WN, no apparent distress HEENT: PERRL/EOMI, normal ENT inspection Neck: non-tender, full range of motion Respiratory: no respiratory distress, no accessory muscle use Cardiovascular: regular rate, rhythm, no murmur Gastrointestinal: normal bowel sounds, non tender, soft Extremities: normal range of motion, non-tender Neurologic/Psychiatric: alert, normal mood/affect, oriented x 3 Skin: normal color, warm/dry Progress/Results/Core Measures Results/Orders Lab Results Laboratory Tests Test 03/11/21 15:03 03/11/21 17:38 Range/Units White Blood Count 7.4 4.3-11.0 10^3/uL Red Blood Count 4.58 3.80-5.11 10^6/uL Hemoglobin 13.3 11.5-16.0 g/dL Hematocrit 40 35-52 % Mean Corpuscular Volume 87 80-99 fL Mean Corpuscular Hemoglobin 29 25-34 pg Mean Corpuscular Hemoglobin Concent 34 32-36 g/dL Red Cell Distribution Width 12.6 10.0-14.5 % Platelet Count 209 130-400 10^3/uL Mean Platelet Volume 10.6 9.0-12.2 fL Immature Granulocyte % (Auto) 0 % Neutrophils (%) (Auto) 52 42-75 % Lymphocytes (%) (Auto) 22 12-44 % Monocytes (%) (Auto) 6 0-12 % Eosinophils (%) (Auto) 19 H 0-10 % Basophils (%) (Auto) 1 0-10 % Neutrophils # (Auto) 3.8 1.8-7.8 10^3/uL Lymphocytes # (Auto) 1.7 1.0-4.0 10^3/uL Monocytes # (Auto) 0.5 0.0-1.0 10^3/uL Eosinophils # (Auto) 1.4 H 0.0-0.3 10^3/uL Basophils # (Auto) 0.1 0.0-0.1 10^3/uL Immature Granulocyte # (Auto) 0.0 0.0-0.1 10^3/uL Neutrophils % (Manual) 50 % Lymphocytes % (Manual) 22 % Monocytes % (Manual) 6 % Eosinophils % (Manual) 21 % Band Neutrophils 1 % Blood Morphology Comment NORMAL Erythrocyte Sedimentation Rate 5 0-20 MM/HR Sodium Level 139 135-145 MMOL/L Potassium Level 3.9 3.6-5.0 MMOL/L Chloride Level 107 98-107 MMOL/L Carbon Dioxide Level 22 21-32 MMOL/L Anion Gap 10 5-14 MMOL/L Blood Urea Nitrogen 12 7-18 MG/DL Creatinine 0.84 0.60-1.30 MG/DL Estimat Glomerular Filtration Rate 80 BUN/Creatinine Ratio 14 Glucose Level 109 H 70-105 MG/DL Calcium Level 9.6 8.5-10.1 MG/DL Corrected Calcium 9.4 8.5-10.1 MG/DL Total Bilirubin 0.6 0.1-1.0 MG/DL Aspartate Amino Transf (AST/SGOT) 16 5-34 U/L Alanine Aminotransferase (ALT/SGPT) 12 0-55 U/L Alkaline Phosphatase 58 40-136 U/L C-Reactive Protein High Sensitivity 0.05 0.00-0.50 MG/DL Total Protein 7.0 6.4-8.2 GM/DL Albumin 4.3 3.2-4.5 GM/DL Serum Test, Qualitative NEGATIVE NEGATIVE Urine Color YELLOW Urine Clarity CLEAR Urine pH 7.5 5-9 Urine Specific Stanley 1.010 L 1.016-1.022 Urine Protein NEGATIVE NEGATIVE Urine Glucose (UA) NEGATIVE NEGATIVE Urine Ketones NEGATIVE NEGATIVE Urine Nitrite NEGATIVE NEGATIVE Urine Bilirubin NEGATIVE NEGATIVE Urine Urobilinogen 0.2 < = 1.0 MG/DL Urine Leukocyte Esterase TRACE H NEGATIVE Urine RBC (Auto) NEGATIVE NEGATIVE Urine RBC NONE /HPF Urine WBC 0-2 /HPF Urine Squamous Epithelial Cells 0-2 /HPF Urine Crystals NONE /LPF Urine Bacteria NEGATIVE /HPF Urine Casts NONE /LPF Urine Mucus NEGATIVE /LPF Urine Culture Indicated NO My Orders Orders - KAYLA JOAQUIN OWNER/PHOTOGRAPHER Cbc With Automated Diff (03/11/21 15:56) Comprehensive Metabolic Panel (03/11/21 15:56) Ua Culture If Indicated (03/11/21 15:56) Hcg,Qualitative Serum (03/11/21 15:56) Ed Iv/Invasive Line Start (03/11/21 15:56) Lactated Ringers (Lr 1000 Ml Iv Solution (03/11/21 16:15) Ondansetron Injection (Zofran Injectio (03/11/21 16:15) Hyoscyamine Sl Tablet (Levsin Sl Tablet) (03/11/21 16:15) Erythrocyte Sedimentation Rate (03/11/21 16:04) Hs C Reactive Protein (03/11/21 16:04) Ct Abdomen/Pelvis W (03/11/21 16:04) Manual Differential (03/11/21 15:03) Iohexol Injection (Omnipaque 350 Mg/Ml 1 (03/11/21 17:00) Received Contrast (Hold Metformin- Contr (03/11/21 17:00) Ns (Ivpb) (Sodium Chloride 0.9% Ivpb Bag (03/11/21 17:00) Hydrocodone/Apap 5/325 Tablet (Lortab 5 (03/11/21 18:00) Medications Given in ED Current Medications Medications Dose Ordered Sig/Cary Route Start Time Stop Time Status Last Admin Dose Admin Acetaminophen/ Hydrocodone Bitart 1 ea ONCE ONCE PO 03/11/21 18:00 03/11/21 18:01 DC 03/11/21 18:07 1 EA Hyoscyamine Sulfate 0.25 mg ONCE ONCE PO 03/11/21 16:15 03/11/21 16:16 DC 03/11/21 16:26 0.25 MG Iohexol 100 ml ONCE ONCE IV 03/11/21 17:00 03/11/21 17:01 DC 03/11/21 17:15 66 ML Ondansetron HCl 8 mg ONCE ONCE IVP 03/11/21 16:15 03/11/21 16:16 DC 03/11/21 16:27 8 MG Sodium Chloride 100 ml ONCE ONCE IV 03/11/21 17:00 03/11/21 17:01 DC 03/11/21 17:16 80 ML Vital Signs/I&O 03/11/21 03/11/21 14:50 18:14 Temp 37.2 Pulse 77 50 Resp 18 18 B/P (MAP) 119/70 (86) 119/71 Pulse Ox 98 98 O2 Delivery Room Air Blood Pressure Mean: 86 Departure Impression Primary Impression: Irritable bowel syndrome Disposition: 01 HOME, SELF-CARE Condition: Stable Departure-Patient Inst. Decision time for Depature: 17:55 Referrals: NO,LOCAL PHYSICIAN (PCP) Primary Care Physician SAMANTHA NINA (Family) Primary Care Physician Patient Instructions: Irritable Bowel Syndrome Scripts Dicyclomine HCl (Dicyclomine HCl) 10 Mg Capsule 10 MG PO TID, #21 CAP Prov: KAYLA JOAQUIN OWNER/PHOTOGRAPHER 03/11/21 Work/School Note: Work Release Form Date Seen in the Emergency Department: Mar 11, 2021 Return to Work: Mar 12, 2021 Copy Copies To 1: ABBIE GIBBONS PETER J APRN Mar 11, 2021 16:13
[2021-03-11 16:14] LABS: CREATININE SERUM 0.84 MG/DL (0.60-1.30)
[2021-03-11] MEDS ORDERED: HYOSCYAMINE 0.125 MG (LEVSIN) TAB PO ONE (16:15)
[2021-03-11] MEDS ORDERED: LACTATED RINGERS 1,000 ML IV SCH (16:15)
[2021-03-11] MEDS ORDERED: ONDANSETRON 4 MG/2 ML (SDV) Z0FRAN IVP ONE (16:15)
[2021-03-11] MEDS ORDERED: NS 100 ML (IVPB) BAG IV ONE (17:00)
[2021-03-11] MEDS ORDERED: HOLD METFORMIN - RECEIVED CONTRAST 20 ML VIAL IV SCH (17:00)
[2021-03-11] MEDS ORDERED: IOHEXOL 350 MG/ML 100 ML (OMNIPAQUE 350) VIAL IV ONE (17:00)
--- NOTE | 2021-03-11 17:22 | Diagnostic Imaging Report ---
EXAMINATION: CT abdomen and pelvis with intravenous contrast. TECHNIQUE: Multiple contiguous axial images were obtained through the abdomen and pelvis after the uneventful administration of intravenous contrast. All CT scans use one or more of the following dose optimizing techniques: Automated exposure control, MA and/or KvP adjustment based on patient size and exam type or iterative reconstruction. HISTORY: Pelvic pain. COMPARISON: 03/22/2020. FINDINGS: Limited views of the lower thorax are unremarkable. The liver is normal without focal lesion. There is no biliary ductal dilation. Gallbladder is surgically absent Pancreas is normal. Spleen is normal. Adrenal glands are normal. The kidneys are normal. There is no hydronephrosis. Urinary bladder is normal. Corpus luteum cyst is present in the left ovary. Uterus and ovaries are normal for age. Visualized bowel is normal in caliber without obstruction or inflammation. No free fluid or air. No abdominal or pelvic lymphadenopathy. Aorta is normal in caliber without aneurysm. There are no suspicious osseous lesions. IMPRESSION: 1. No acute abnormality in the abdomen or pelvis. Dictated by: Dictated on workstation # [id number]
[2021-03-11 17:47] LABS: BILIRUBIN,URINE NEGATIVE (NEGATIVE); CLARITY,URINE CLEAR; COLOR,URINE YELLOW; GLUCOSE, URINE (UA) NEGATIVE (NEGATIVE); KETONES,URINE NEGATIVE (NEGATIVE); LEUKOCYTE ESTERASE ,URINE TRACE (NEGATIVE); NITRITE,URINE NEGATIVE (NEGATIVE); PH,URINE 7.5 (5-9); PROTEIN,URINE NEGATIVE (NEGATIVE)
[2021-03-11 17:50] LABS: BAND NEUTROPHILS 1 %; EOSINOPHILS % (MANUAL) 21 %; LYMPHOCYTES % (MANUAL) 22 %; MONOCYTES % (MANUAL) 6 %; NEUTROPHILS % (MANUAL) 50 %
[2021-03-11 17:51] LABS: RBC MORPH NORMAL
[2021-03-11] MEDS ORDERED: DICY10CA12 PO (17:55)
[2021-03-11 17:57] LABS: BACTERIA,URINE NEGATIVE /HPF; SQUAMOUS EPITHELIAL CELL,UR 0-2 /HPF; WBC,URINE 0-2 /HPF
[2021-03-11] MEDS ORDERED: HYDROcodone/APAP 5 MG/325 MG (LORTAB) TAB PO ONE (18:00)
[2021-03-11 18:14] VITALS: BP 119/71
== END 2021-03-11 18:15 | disposition home or self-care (01) ==
LOC: EDUNIT# 14:30 → ER 14:31
DX: K58.9 Irritable bowel syndrome, unspecified (principal); J45.909 Unspecified asthma, uncomplicated; K21.9 Gastro-esophageal reflux disease without esophagitis; F41.9 Anxiety disorder, unspecified; Z79.899 Other long term (current) drug therapy; Z79.52 Long term (current) use of systemic steroids
CPT/HCPCS: 36415; 74177; 80053; 81000; 84703; 85007; 85027; 85652; 86141; 96361; 96374

== ENCOUNTER 2021-03-22 06:43 | Outpatient (CLI) | payer BC ==
[~2021-03-22] VITALS: Ht 152.4 cm; Wt 55.8 kg
[~2021-03-22 06:43] MED LIST changes: +DICY10CA12 PO
== END 2021-03-22 14:16 | disposition home or self-care (01) ==
LOC: PREOP 06:43
PROVIDERS: ATTEND Surgery
DX: Z01.818 Encounter for other preprocedural examination (principal)

== ENCOUNTER 2021-03-29 08:04 | Day surgery (SDC) | payer BC ==
[~2021-03-29] VITALS: Ht 152.4 cm; Wt 55.8 kg
[2021-03-29] MEDS ORDERED: LACTATED RINGERS 1,000 ML IV STA (08:09)
[2021-03-29 08:15] VITALS: BP 116/74
[2021-03-29] MEDS ORDERED: LACTATED RINGERS 1,000 ML IV ONE (08:16)
--- NOTE | 2021-03-29 08:35 | Progress Note-Pre Operative ---
Pre-Operative Progress Note H&P Reviewed The H&P was reviewed, patient examined and no changes noted. Time Seen by Provider: 08:32 Date H&P Reviewed: Mar 29, 2021 Time H&P Reviewed: 08:32 Pre-Operative Diagnosis: change in bowel habits ABBIE GIBBONS DO Mar 29, 2021 08:35
[2021-03-29] MEDS ORDERED: MIDAZOLAM 2 MG/2 ML (VERSED) VIAL ONE (09:09)
[2021-03-29] MEDS ORDERED: PROPOFOL INJECTION 50 ML IV ONE (09:09)
[2021-03-29 09:35] VITALS: BP 135/74
--- NOTE | 2021-03-29 09:36 | Progress Note-Post Operative ---
Post-Operative Progess Note Surgeon (s)/Editorial Project Manager (s) Surgeon ABBIE GIBBONS DO Editorial Project Manager: ADAM Del Toro Pre-Operative Diagnosis change in bowel habits Post-Operative Diagnosis Int hemorrhoids Ext hemorrhoidal skin tag Procedure & Operative Findings Date of Procedure 03/29/21 Procedure Performed/Findings Colonoscopy PROCEDURE NOTE: After informed consent was obtained, the patient was brought to the endoscopy suite, placed in bed in left lateral decubitus position. She was administered IV sedation by the BENCH PRECISION ASSEMBLER who then monitored her vitals the entire time, heart rate, blood pressure and pulse ox and the scope was inserted, pushed all the way to about 120 cm and pushed into the cecum, took a picture of appendiceal orifice and then slowly withdrew the scope insufflating to look circumferentially at the campos. Starting in thececum, up the ascending colon to the hepatic flexure, then down the transverse colon, splenic flexure, into the descending colon down into the sigmoid. Finally into the rectal vault and retroflexed the scope. She had some Grade I, maybe grade II internal \ hemorrhoids; took a picture and then took another picture of the external hemorrhoidal skin tag. I also took random photos throughout the colon; did not see any inflammation, ulceration or obstruction. The patient tolerated the procedure. She was recovered in endoscopy suite. Anesthesia Type IV sedation by BENCH PRECISION ASSEMBLER Estimated Blood Loss Estimated blood loss (mL): none Specimens/Packing Specimens Removed none ABBIE GIBBONS DO Mar 29, 2021 09:36
--- NOTE | 2021-03-29 09:37 | Endoscopy Discharge Instruct ---
Endo Procedure/Findings Findings 1.: Internal Hemorrhoids Discharge Instructions - Activity: You might feel a little sleepy until tomorrow. This is due to the me dicine you received to relax you. Until tomorrow, you should: NOT drive a car, operate machinery or power tools. NOT drink any alcoholic beverages. NOT make any important decisions or sign importortant papers. Do not return to work until tomorrow, unless otherwise instructed. Resume previous activities tomorrow. Diet: Start by taking liquids. If you tolerate liquids, advance to solid food. 1.: Other Recommendation (Colonoscopy at age 47) Notify Physician - If you experience excessive bleeding, unusual abdominal pain, fever, or chest pain, contact your doctor immediately. ABBIE GIBBONS DO Mar 29, 2021 09:37
[2021-03-29 09:40] VITALS: BP 125/75
[2021-03-29 10:00] VITALS: BP 122/93
[2021-03-29 10:40] VITALS: BP 122/73
--- NOTE | 2021-03-29 12:02 | Anesthesia-General Post-Op ---
MAC Patient Condition Mental Status/LOC: Same as Preop Cardiovascular: Satisfactory Nausea/Vomiting: Absent Respiratory: Satisfactory Pain: Controlled Complications: Absent Post Op Complications Complications None Follow Up Care/Instructions Patient Instructions None needed. Anesthesiology Discharge Order Discharge Order Patient is doing well, no complaints, stable vital signs, no apparent adverse anesthesia problems. No complications reported per nursing. JANICE MCGINNIS CRNA Mar 29, 2021 12:02
== END 2021-03-29 10:38 | disposition home or self-care (01) ==
LOC: ENDO 08:04
PROVIDERS: ATTEND Surgery
DX: K64.0 First degree hemorrhoids (principal); K64.4 Residual hemorrhoidal skin tags; L29.0 Pruritus ani; R19.4 Change in bowel habit; K21.9 Gastro-esophageal reflux disease without esophagitis; Z87.891 Personal history of nicotine dependence; Z90.49 Acquired absence of other specified parts of digestive tract; Z98.890 Other specified postprocedural states
CPT/HCPCS: 84703

== ENCOUNTER 2021-06-16 11:11 | Emergency (ER) | payer BC ==
[~2021-06-16] VITALS: Ht 152.4 cm; Wt 57.6 kg
--- NOTE | 2021-06-16 11:50 | ED Cough/URI ---
General Chief Complaint: COVID19 Suspect/Confirmed Stated Complaint: COVID + HYPOXIA Nursing Triage Note: positive onmonday, today o2 at home was 89%. hx of asthma worried was hypoxic Source: patient Exam Limitations: no limitations History of Present Illness Date Seen by Provider: Jun 16, 2021 Time Seen by Provider: 11:47 Initial Comments Patient is a 31-year-old female who presents ED flulike symptoms. She reports headache, body aches, fatigue, generalized weakness with cough. History of asthma. Has been using her inhaler. She reports some chest tightness with the cough. Denies history of heart disease. Denies abdominal pain. She reports diarrhea with nausea. Denies any vomiting, urinary symptoms. Not concern for . No vaginal bleeding. Patient states her oxygen level on her mobile pulse ox was 89% at home. 98 on room room air here in the ED. Vital signs stable. No acute distress. Intermittent fever without neck pain, visual changes, crushing chest pain, abdominal pain. Patient tested positive for Covid on Monday with negative flu and strep A., Patient denies of any wheezing Allergies and Home Medications Allergies Coded Allergies: No Known Drug Allergies (Verified , 06/16/21) Patient Home Medication List Home Medication List Reviewed: Yes Citalopram Hydrobromide (Citalopram HBr) 20 Mg Tablet, 20 MG PO DAILY, (Reported) Entered as Reported by: DEVONTE DIETZ on 04/30/20 1505 Dicyclomine HCl (Dicyclomine HCl) 10 Mg Capsule, 10 MG PO TID Prescribed by: KAYLA JOAQUIN on 03/11/21 1755 Prednisone (Prednisone) 20 Mg Tab, 20 MG PO DAILY Prescribed by: RANJANA BERRY on 12/30/20 0324 Prednisone (Prednisone) 50 Mg Tab, 50 MG PO DAILY Prescribed by: JOSI DONOVAN on 06/16/21 1248 Review of Systems Review of Systems Constitutional: chills, malaise, weakness EENTM: No ear pain, No eye pain, No vision loss, No throat pain, No throat swelling Respiratory: cough, short of breath Cardiovascular: No chest pain Gastrointestinal: No abdominal pain; diarrhea, nausea; No vomiting Genitourinary: No decreased output, No discharge, No dysuria Musculoskeletal: No back pain, No gout, No joint pain Skin: No see HPI, No change in color, No change in hair/nails All Other Systems Reviewed Negative Unless Noted: Yes Past [id number] Hx Immunizations Up To Date Tetanus Booster (TDap): Unknown First/Initial COVID19 Vaccinat: 08/30 Second COVID19 Vaccination Venkat: 09/13/20 Seasonal Allergies Seasonal Allergies: Yes Past Medical History Surgeries: Yes (D&C, R HAND FX/ORIF, BONE SPURS FROM ANKLE, WISDOM TEETH,HIATAL HERNIA) Gallbladder, Orthopedic Respiratory: No Asthma Currently Using CPAP: No Currently Using BIPAP: No Cardiac: No Neurological: No Headaches /Migraines Reproductive Disorders: No Female Reproductive Disorders: Ovarian Cyst Sexually Transmitted Disease: No HIV/AIDS: No Genitourinary: Yes Bladder Infection, UTI-Chronic Gastrointestinal: Yes (HIATAL HERNIA REPAIR) Gastroesophageal Reflux, Chronic Constipation, Hiatal Hernia Musculoskeletal: Yes (ankle; RT HAND) Arthritis Endocrine: No HEENT: Yes (CONTACTS/EYE GLASSES) Loss of Vision: Denies Hearing Impairment: Denies Cancer: No Psychosocial: Yes Anxiety Integumentary: No Blood Disorders: No Adverse Reaction/Blood Tranf: No (N/A) Family Medical History No Pertinent Family Hx Physical Exam Vital Signs - First Documented 06/16/21 11:36 Temp 36.6 Pulse 60 Resp 18 B/P (MAP) 119/88 (98) Pulse Ox 98 O2 Delivery Room Air Capillary Refill : Less Than 3 Seconds Height: 5'0.00" Weight: 135lbs. 0.0oz. 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/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 as tested, no motor/sensory deficits, alert, normal mood/affect, oriented x 3 Skin: normal color, warm/dry Progress/Results/Core Measures Suspected Sepsis SIRS Temperature: Pulse: 60 Respiratory Rate: 18 Laboratory Tests 06/16/21 11:40: White Blood Count 4.0L Blood Pressure 119 /88 Mean: 98 Laboratory Tests 06/16/21 11:40: Creatinine 0.86, Platelet Count 201, Total Bilirubin 0.3 Results/Orders Lab Results Laboratory Tests Test 06/16/21 11:40 Range/Units White Blood Count 4.0 L 4.3-11.0 10^3/uL Red Blood Count 4.58 3.80-5.11 10^6/uL Hemoglobin 13.5 11.5-16.0 g/dL Hematocrit 40 35-52 % Mean Corpuscular Volume 87 80-99 fL Mean Corpuscular Hemoglobin 30 25-34 pg Mean Corpuscular Hemoglobin Concent 34 32-36 g/dL Red Cell Distribution Width 12.7 10.0-14.5 % Platelet Count 201 130-400 10^3/uL Mean Platelet Volume 11.2 9.0-12.2 fL Immature Granulocyte % (Auto) 0 % Neutrophils (%) (Auto) 40 L 42-75 % Lymphocytes (%) (Auto) 29 12-44 % Monocytes (%) (Auto) 13 H 0-12 % Eosinophils (%) (Auto) 17 H 0-10 % Basophils (%) (Auto) 1 0-10 % Neutrophils # (Auto) 1.6 L 1.8-7.8 10^3/uL Lymphocytes # (Auto) 1.2 1.0-4.0 10^3/uL Monocytes # (Auto) 0.5 0.0-1.0 10^3/uL Eosinophils # (Auto) 0.7 H 0.0-0.3 10^3/uL Basophils # (Auto) 0.0 0.0-0.1 10^3/uL Immature Granulocyte # (Auto) 0.0 0.0-0.1 10^3/uL Neutrophils % (Manual) 39 % Lymphocytes % (Manual) 32 % Monocytes % (Manual) 8 % Eosinophils % (Manual) 19 % Band Neutrophils 2 % Blood Morphology Comment NORMAL Sodium Level 139 135-145 MMOL/L Potassium Level 4.4 3.6-5.0 MMOL/L Chloride Level 104 98-107 MMOL/L Carbon Dioxide Level 26 21-32 MMOL/L Anion Gap 9 5-14 MMOL/L Blood Urea Nitrogen 9 7-18 MG/DL Creatinine 0.86 0.60-1.30 MG/DL Estimat Glomerular Filtration Rate 78 BUN/Creatinine Ratio 10 Glucose Level 84 70-105 MG/DL Calcium Level 9.1 8.5-10.1 MG/DL Corrected Calcium 8.9 8.5-10.1 MG/DL Total Bilirubin 0.3 0.1-1.0 MG/DL Aspartate Amino Transf (AST/SGOT) 20 5-34 U/L Alanine Aminotransferase (ALT/SGPT) 9 0-55 U/L Alkaline Phosphatase 56 40-136 U/L C-Reactive Protein High Sensitivity 0.83 H 0.00-0.50 MG/DL Total Protein 7.5 6.4-8.2 GM/DL Albumin 4.2 3.2-4.5 GM/DL My Orders Orders - GRICELDA SORENSEN PA Cbc With Automated Diff (06/16/21 11:46) Hs C Reactive Protein (06/16/21 11:46) Chest 1 View, Ap/Pa Only (06/16/21 11:46) Comprehensive Metabolic Panel (06/16/21 11:46) Prednisone Tablet (Deltasone Tablet) (06/16/21 12:00) Ketorolac Injection (Toradol Injection) (06/16/21 12:00) Manual Differential (06/16/21 11:40) Medications Given in ED Current Medications Medications Dose Ordered Sig/Cary Route Start Time Stop Time Status Last Admin Dose Admin Ketorolac Tromethamine 30 mg ONCE ONCE IVP 06/16/21 12:00 06/16/21 12:01 DC 06/16/21 12:15 30 MG Prednisone 50 mg ONCE ONCE PO 06/16/21 12:00 06/16/21 12:01 DC 06/16/21 12:14 50 MG Vital Signs/I&O 06/16/21 06/16/21 11:36 13:10 Temp 36.6 Pulse 60 52 Resp 18 18 B/P (MAP) 119/88 (98) 121/82 Pulse Ox 98 98 O2 Delivery Room Air Room Air Capillary Refill : Less Than 3 Seconds Blood Pressure Mean: 98 Departure Communication (Admissions) Patient tested positive for Covid on Monday. Flulike symptoms today. Vital signs stable. She is not hypoxic. Lab work was otherwise unremarkable. Chest x-ray negative for pneumonia. History of asthma. No specific wheezing. She states she does get frequent asthma exacerbation requesting steroids for a few days. Will discharge with prednisone. She was given dose here. Continue with inhaler at home. Continue staying hydrated at home. She is tolerating p.o. fluids at bedside. She was given Toradol with improvement of headache. If any worsening symptoms return back to ED for further evaluation. Quarantine at home for the next 10 to 14 days Impression Primary Impression: COVID-19 Disposition: 01 HOME, SELF-CARE Condition: Stable Departure-Patient Inst. Decision time for Depature: 12:47 Referrals: NO,LOCAL PHYSICIAN (PCP) Primary Care Physician SAMANTHA NINA (Family) Primary Care Physician Patient Instructions: COVID-19 Overview Scripts Prednisone (Prednisone) 50 Mg Tab 50 MG PO DAILY for 4 Days, #4 TAB Prov: GRICELDA SORENSEN 06/16/21 Work/School Note: Family Work Note, Work Release Form Date Seen in the Emergency Department: Jun 16, 2021 Return to Work: Jun 27, 2021 GRICELDA SORENSEN Jun 16, 2021 11:49
[2021-06-16 11:53] LABS: BASOPHILS % (AUTO) 1 % (0-10); EOSINOPHILS # (AUTO) 0.7 10^3/uL (0.0-0.3); EOSINOPHILS % (AUTO) 17 % (0-10); HEMATOCRIT 40 % (35-52); HEMOGLOBIN 13.5 g/dL (11.5-16.0); LYMPHOCYTES # (AUTO) 1.2 10^3/uL (1.0-4.0); LYMPHOCYTES % (AUTO) 29 % (12-44); MEAN CORPUSCULAR HEMOGLOBIN 30 pg (25-34); MEAN CORPUSCULAR HGB CONC 34 g/dL (32-36); MEAN CORPUSCULAR VOLUME 87 fL (80-99); MEAN PLATELET VOLUME 11.2 fL (9.0-12.2); MONOCYTES # (AUTO) 0.5 10^3/uL (0.0-1.0); MONOCYTES % (AUTO) 13 % (0-12); NEUTROPHILS # (AUTO) 1.6 10^3/uL (1.8-7.8); NEUTROPHILS % (AUTO) 40 % (42-75); PLATELET COUNT 201 10^3/uL (130-400)
[2021-06-16] MEDS ORDERED: predniSONE 20 MG TAB PO ONE (12:00)
[2021-06-16] MEDS ORDERED: KETOROLAC 30 MG/ML VIAL IVP ONE (12:00)
[2021-06-16 12:06] LABS: BAND NEUTROPHILS 2 %; EOSINOPHILS % (MANUAL) 19 %; LYMPHOCYTES % (MANUAL) 32 %; MONOCYTES % (MANUAL) 8 %; NEUTROPHILS % (MANUAL) 39 %; RBC MORPH NORMAL
[2021-06-16 12:11] LABS: ALBUMIN 4.2 GM/DL (3.2-4.5); POTASSIUM 4.4 MMOL/L (3.6-5.0)
[2021-06-16 12:12] LABS: CALCIUM 9.1 MG/DL (8.5-10.1)
--- NOTE | 2021-06-16 12:12 | Diagnostic Imaging Report ---
INDICATION: Lower respiratory infection. EXAMINATION: Portable chest at 11:58 a.m. FINDINGS: Heart size and pulmonary vascularity are normal. Lungs are clear. There are no effusions or pneumothoraces. IMPRESSION: Negative chest. Dictated by: Dictated on workstation # [id number]
[2021-06-16 12:14] LABS: TOTAL PROTEIN 7.5 GM/DL (6.4-8.2)
[2021-06-16 12:16] LABS: BILIRUBIN,TOTAL 0.3 MG/DL (0.1-1.0)
[2021-06-16 12:17] LABS: CREATININE SERUM 0.86 MG/DL (0.60-1.30)
[2021-06-16] MEDS ORDERED: PRD50T PO (12:48)
[2021-06-16 13:10] VITALS: BP 121/82
== END 2021-06-16 13:10 | disposition home or self-care (01) ==
LOC: EDUNIT# 11:11 → ER 11:12
DX: U07.1 COVID-19 (principal); F41.9 Anxiety disorder, unspecified
CPT/HCPCS: 36415; 71045; 80053; 85007; 85027; 86141

== ENCOUNTER 2023-03-21 06:22 | Emergency (ER) | payer BC ==
[~2023-03-21] VITALS: Ht 152.4 cm; Wt 63.5 kg
[~2023-03-21 06:22] MED LIST changes: +DICY-11 PO; -DICY10CA12 PO; +OMEP20TA56 PO; -OMEP20TA7 PO; +PRD50T PO
[2023-03-21] MEDS ORDERED: ONDANSETRON INJECTION 4 MG/2 ML (SDV) IVP ONE (06:45)
[2023-03-21] MEDS ORDERED: LACTATED RINGERS 1,000 ML 1,000 ML IV ONE ×3 (06:45→07:31)
[2023-03-21] MEDS ORDERED: HYOSCYAMINE 0.125 MG TABLET PO ONE (06:45)
[2023-03-21 06:55] LABS: BASOPHILS % (AUTO) 0 % (0-10); EOSINOPHILS # (AUTO) 0.3 10^3/uL (0.0-0.3); EOSINOPHILS % (AUTO) 2 % (0-10); HEMATOCRIT 43 % (35-52); HEMOGLOBIN 14.7 g/dL (11.5-16.0); LYMPHOCYTES # (AUTO) 0.7 10^3/uL (1.0-4.0); LYMPHOCYTES % (AUTO) 7 % (12-44); MEAN CORPUSCULAR HEMOGLOBIN 29 pg (25-34); MEAN CORPUSCULAR HGB CONC 34 g/dL (32-36); MEAN CORPUSCULAR VOLUME 86 fL (80-99); MEAN PLATELET VOLUME 10.4 fL (9.0-12.2); MONOCYTES # (AUTO) 0.4 10^3/uL (0.0-1.0); MONOCYTES % (AUTO) 4 % (0-12); NEUTROPHILS # (AUTO) 9.4 10^3/uL (1.8-7.8); NEUTROPHILS % (AUTO) 86 % (42-75); PLATELET COUNT 283 10^3/uL (130-400); WHITE BLOOD COUNT 10.9 10^3/uL (4.3-11.0)
[2023-03-21] MEDS ORDERED: fentaNYL INJECTION 100 MCG/2 ML VIAL IVP ONE (07:00)
[2023-03-21 07:08] LABS: CHLORIDE 104 MMOL/L (98-107); POTASSIUM 4.2 MMOL/L (3.6-5.0); SODIUM 139 MMOL/L (135-145)
[2023-03-21 07:09] LABS: CALCIUM 10.3 MG/DL (8.5-10.1)
[2023-03-21 07:10] LABS: GLUCOSE 114 MG/DL (70-105); TOTAL PROTEIN 8.6 GM/DL (6.4-8.2)
[2023-03-21 07:11] LABS: CARBON DIOXIDE 21 MMOL/L (21-32)
[2023-03-21 07:12] LABS: BILIRUBIN,TOTAL 1.1 MG/DL (0.1-1.0)
[2023-03-21 07:14] LABS: ALKALINE PHOSPHATASE 76 U/L (40-136); CREATININE SERUM 1.03 MG/DL (0.60-1.30); GFR ESTIMATED 75
[2023-03-21 07:15] LABS: BUN/CREATININE RATIO 14
[2023-03-21 07:17] LABS: ALANINE AMINOTRANSFERASE 15 U/L (0-55)
[2023-03-21 07:18] LABS: LIPASE 49 U/L (8-78)
[2023-03-21] MEDS ORDERED: PROMETHAZINE INJ 25 MG/ML VIAL IVP ONE (07:30)
--- NOTE | 2023-03-21 07:35 | ED Abdominal Pain ---
General Chief Complaint: Abdominal/GI Problems Stated Complaint: RIGHT SIDE LOWER ABD PAIN/VOMITING/DIARRHEA Nursing Triage Note: PT AMBULATES TO ROOM #6 W/CC NAUSEA, VOMITING, DIARRHEA, AND LOWER RT ABD DISCOMFORT. PT REPORTS YESTERDAY EVENING AT APPROX 2200 SHE BEGAN TO EXPERIENCE LOWER RT SIDE ABDOMINLA CRAMPING. PT REPORTS AT 0200 THIS MORNING SHE WOKE UP WITH DIARRHEA, NAUSEA, AND VOMITING. PT REPORTS SHE HAS EXPERIENCED X13 EPISODES OF EMESIS SINCE ONSET OF SX. PT DENIES FEVER OR CHILLS. PT TEARFUL DURING TRIAGE. Source of Information: Patient Exam Limitations: No Limitations History of Present Illness Date Seen by Provider: Mar 21, 2023 Time Seen by Provider: 06:29 Initial Comments This 33-year-old young lady presents to the emergency room with complaints of a dull upper abdominal pain that started around 2200 last night and has migrated to the right lower quadrant with greater intensity. Around 0200 she began having diarrhea and vomiting. She has not had fever or chills. She denies any urinary symptoms except oligoanuria. She describes worsening pain with vomiting, bowel movements, walking, and riding in the car. Diarrhea is watery. She has not noted any blood in her stool. She has had previous cholecystectomy and notes having diarrhea sometimes after eating spicy food. She did eat tacos last night. She seems in distress on arrival and rates her pain as 10 out of 10. She has history of hiatal hernia which was surgically repaired. Patient needs to use the commode immediately upon being roomed. Her primary care provider is Dr. Loo in [place]. Her primary surgeon is Dr. Rene with assist in the OR by Dr. Reyes. Her preferred pharmacy is [facility] in [place]. She denies as she is not sexually active presently. Allergies and Home Medications Allergies Coded Allergies: No Known Drug Allergies (Verified , 06/16/21) Patient Home Medication List Home Medication List Reviewed: Yes Citalopram Hydrobromide (Citalopram HBr) 20 Mg Tablet, 20 MG PO DAILY, (Reported) Entered as Reported by: DEVONTE DIETZ on 04/30/20 1505 Dicyclomine HCl (Dicyclomine HCl) 10 Mg Capsule, 10 MG PO TID Prescribed by: KAYLA JOAQUIN on 03/11/21 1755 Famotidine (Pepcid) 20 Mg Tablet, 20 MG PO BID PRN for ABDOMINAL PAIN Prescribed by: RANJANA BERRY on 03/21/23 1031 Hyoscyamine Sulfate (Levsin-Sl) 0.125 Mg Tab.subl, 1-2 TAB SL Q4H PRN for CRAMPS Prescribed by: RANJANA BERRY on 03/21/23 1031 Ondansetron (Ondansetron Odt) 4 Mg Tab.rapdis, 4 MG SL Q4H PRN for NAUSEA/VOMITING Prescribed by: RANJANA BERRY on 03/21/23 1031 Prednisone (Prednisone) 20 Mg Tab, 20 MG PO DAILY Prescribed by: RANJANA BERRY on 12/30/20 0324 Prednisone (Prednisone) 50 Mg Tab, 50 MG PO DAILY Prescribed by: JOSI DONOVAN on 06/16/21 1248 Promethazine HCl (Promethazine Tablet) 25 Mg Tablet, 25 MG PO Q6H PRN for NAUSEA/VOMITING-2ND LINE Prescribed by: RANJANA BERRY on 03/21/23 1031 Review of Systems Review of Systems Constitutional: no symptoms reported EENTM: No Symptoms Reported Respiratory: No Symptoms Reported Cardiovascular: No Symptoms Reported Gastrointestinal: See HPI Genitourinary: See HPI Musculoskeletal: no symptoms reported Skin: no symptoms reported Psychiatric/Neurological: No Symptoms Reported Endocrine: No Symptoms Reported Hematologic/Lymphatic: No Symptoms Reported Past Kjcvjmw-Jswjdx-Xpycli Hx Patient Social History Tobacco Use?: No Smoking Status: Never a Smoker Substance use?: No Alcohol Use?: Yes Alcohol Frequency: Rarely Pt feels they are or have been: No Immunizations Up To Date Tetanus Booster (TDap): Unknown First/Initial COVID19 Vaccinat: 08/30 Second COVID19 Vaccination Venkat: 09/13/20 Third COVID19 Vaccination Date: 08/30 Seasonal Allergies Seasonal Allergies: Yes Past Medical History Surgeries: Yes (D&C, R HAND FX/ORIF, BONE SPURS FROM ANKLE, WISDOM TEETH,HIATAL HERNIA) Abdominal (Hiatal hernia repair), Gallbladder, Orthopedic (Right ankle, right hand ORIF and later plate removal) Respiratory: No Asthma Currently Using CPAP: No Currently Using BIPAP: No Cardiac: No Neurological: Yes Headaches /Migraines : No Reproductive Disorders: No Female Reproductive Disorders: Ovarian Cyst Sexually Transmitted Disease: No HIV/AIDS: No Genitourinary: Yes Bladder Infection, UTI-Chronic Gastrointestinal: Yes (HIATAL HERNIA REPAIR) Gastroesophageal Reflux, Chronic Constipation, Hemorrhoids (Internal), Hiatal Hernia Musculoskeletal: Yes (ankle; RT HAND) Arthritis Endocrine: No HEENT: Yes (CONTACTS/EYE GLASSES) Loss of Vision: Denies Hearing Impairment: Denies Cancer: No Psychosocial: Yes Anxiety Integumentary: No Blood Disorders: No Adverse Reaction/Blood Tranf: No (N/A) Family Medical History No Pertinent Family Hx Physical Exam Vital Signs Vital Signs - First Documented 03/21/23 06:28 Temp 37.2 Pulse 84 Resp 17 B/P (MAP) 113/97 (102) Pulse Ox 98 O2 Delivery Room Air Capillary Refill : Less Than 3 Seconds Height/Weight/BMI Height: 5'0.00" Weight: 135lbs. 0.0oz. 61.545897sh; 27.00 BMI Method:Stated General Appearance: WD/WN, moderate distress HEENT: normal ENT inspection Neck: normal inspection Respiratory: lungs clear, normal breath sounds, no respiratory distress Cardiovascular: regular rate, rhythm, no edema, no murmur Gastrointestinal: No distended; tenderness (Intense in the right lower quadrant with positive Rovsing throughout); No mass; other (Tense musculature) Extremities: normal inspection, no pedal edema Neurologic/Psychiatric: no motor/sensory deficits, alert, normal mood/affect, oriented x 3 Skin: normal color, warm/dry Progress/Results/Core Measures Results/Orders Lab Results Laboratory Tests Test 03/21/23 06:35 03/21/23 07:15 03/21/23 07:35 Range/Units White Blood Count 10.9 4.3-11.0 10^3/uL Red Blood Count 5.03 3.80-5.11 10^6/uL Hemoglobin 14.7 11.5-16.0 g/dL Hematocrit 43 35-52 % Mean Corpuscular Volume 86 80-99 fL Mean Corpuscular Hemoglobin 29 25-34 pg Mean Corpuscular Hemoglobin Concent 34 32-36 g/dL Red Cell Distribution Width 12.5 10.0-14.5 % Platelet Count 283 130-400 10^3/uL Mean Platelet Volume 10.4 9.0-12.2 fL Immature Granulocyte % (Auto) 0 % Neutrophils (%) (Auto) 86 H 42-75 % Lymphocytes (%) (Auto) 7 L 12-44 % Monocytes (%) (Auto) 4 0-12 % Eosinophils (%) (Auto) 2 0-10 % Basophils (%) (Auto) 0 0-10 % Neutrophils # (Auto) 9.4 H 1.8-7.8 10^3/uL Lymphocytes # (Auto) 0.7 L 1.0-4.0 10^3/uL Monocytes # (Auto) 0.4 0.0-1.0 10^3/uL Eosinophils # (Auto) 0.3 0.0-0.3 10^3/uL Basophils # (Auto) 0.0 0.0-0.1 10^3/uL Immature Granulocyte # (Auto) 0.0 0.0-0.1 10^3/uL Neutrophils % (Manual) 90 % Lymphocytes % (Manual) 6 % Monocytes % (Manual) 3 % Eosinophils % (Manual) 1 % Blood Morphology Comment NORMAL Sodium Level 139 135-145 MMOL/L Potassium Level 4.2 3.6-5.0 MMOL/L Chloride Level 104 98-107 MMOL/L Carbon Dioxide Level 21 21-32 MMOL/L Anion Gap 14 5-14 MMOL/L Blood Urea Nitrogen 14 7-18 MG/DL Creatinine 1.03 0.60-1.30 MG/DL Estimat Glomerular Filtration Rate 75 BUN/Creatinine Ratio 14 Glucose Level 114 H 70-105 MG/DL Calcium Level 10.3 H 8.5-10.1 MG/DL Corrected Calcium 8.5-10.1 MG/DL Magnesium Level 2.0 1.6-2.4 MG/DL Total Bilirubin 1.1 H 0.1-1.0 MG/DL Aspartate Amino Transf (AST/SGOT) 24 5-34 U/L Alanine Aminotransferase (ALT/SGPT) 15 0-55 U/L Alkaline Phosphatase 76 40-136 U/L C-Reactive Protein High Sensitivity 0.26 0.00-0.50 MG/DL Total Protein 8.6 H 6.4-8.2 GM/DL Albumin 5.0 H 3.2-4.5 GM/DL Lipase 49 8-78 U/L Serum Test, Qualitative NEGATIVE NEGATIVE Urine Color YELLOW Urine Clarity CLEAR Urine pH 8.5 5-9 Urine Specific [place] 1.015 L 1.016-1.022 Urine Protein NEGATIVE NEGATIVE Urine Glucose (UA) NEGATIVE NEGATIVE Urine Ketones NEGATIVE NEGATIVE Urine Nitrite NEGATIVE NEGATIVE Urine Bilirubin NEGATIVE NEGATIVE Urine Urobilinogen 0.2 < = 1.0 MG/DL Urine Leukocyte Esterase 2+ H NEGATIVE Urine RBC (Auto) TRACE-I H NEGATIVE Urine RBC RARE /HPF Urine WBC 2-5 /HPF Urine Squamous Epithelial Cells 2-5 /HPF Urine Crystals NONE /LPF Urine Bacteria FEW H /HPF Urine Casts NONE /LPF Urine Mucus NEGATIVE /LPF Urine Culture Indicated YES Influenza Type A (RT-PCR) Not Detected Not Detecte Influenza Type B (RT-PCR) Not Detected Not Detecte SARS-CoV-2 RNA (RT-PCR) Not Detected Not Detecte My Orders Orders - RANJANA ARAUZ MD Ondansetron Injection (Ondansetron Inj (03/21/23 06:45) Hyoscyamine Tablet (Hyoscyamine Tablet) (03/21/23 06:45) Ed Iv/Invasive Line Start (03/21/23 06:31) Lactated Ringers 1,000 Ml (Lactated Ring (03/21/23 06:45) Cbc And Automated Diff (03/21/23 06:32) Comprehensive Metabolic Panel (03/21/23 06:32) Hcg,Qualitative Serum (03/21/23 06:32) Lipase (03/21/23 06:32) Magnesium (03/21/23 06:32) Manual Differential (03/21/23 06:35) Fentanyl Injection (Fentanyl Injection (03/21/23 07:00) Ua Culture If Indicated (03/21/23 07:00) Hs C Reactive Protein (03/21/23 07:13) Covid 19 Inhouse Test (03/21/23 07:14) Influenza A And B By Pcr (03/21/23 07:14) Promethazine Injection (Promethazine I (03/21/23 07:30) Lactated Ringers 1,000 Ml (Lactated Ring (03/21/23 07:30) Lactated Ringers 1,000 Ml (Lactated Ring (03/21/23 07:31) Urine Culture (03/21/23 07:15) Ct Abdomen/Pelvis W (03/21/23 08:16) Scopolamine Patch (Scopolamine Patch) (03/21/23 09:15) Iohexol Injection (Omnipaque 350 Mg/Ml 1 (03/21/23 09:30) Received Contrast (Hold Metformin- Contr (03/21/23 09:30) Ns (Ivpb) 100 Ml (Sodium Chloride 0.9% 1 (03/21/23 09:30) Ketorolac Injection (Ketorolac Injection (03/21/23 10:00) Pantoprazole Tablet (Pantoprazole Tablet (03/21/23 10:00) Medications Given in ED Current Medications Medications Dose Ordered Sig/Cary Route Start Time Stop Time Status Last Admin Dose Admin Iohexol 100 ml ONCE ONCE IV 03/21/23 09:30 03/21/23 09:31 DC 03/21/23 09:20 73 ML Lactated Ringer's 1,000 ml @ 0 mls/hr Q0M ONCE IV 03/21/23 07:30 03/21/23 07:31 DC 03/21/23 07:35 1,000 MLS/HR Promethazine HCl 25 mg ONCE ONCE IVP 03/21/23 07:30 03/21/23 07:31 DC 03/21/23 07:24 25 MG Scopolamine 1.5 mg ONCE ONCE TD 03/21/23 09:15 03/21/23 09:16 DC 03/21/23 09:22 1.5 MG Sodium Chloride 100 ml ONCE ONCE IV 03/21/23 09:30 03/21/23 09:31 DC 03/21/23 09:20 80 ML Vital Signs/I&O 03/21/23 03/21/23 03/21/23 06:28 07:09 10:45 Temp 37.2 37.2 37.2 Pulse 84 60 Resp 17 17 B/P (MAP) 113/97 (102) 118/72 Pulse Ox 98 98 O2 Delivery Room Air Room Air Blood Pressure Mean: 102 Progress Progress Note #1: Time: 07:35 Progress Note Patient was interviewed and examined promptly upon arrival. She was treated with Zofran 8 mg IV and Levsin 0.25 mg sublingually for initial symptom management. Once in the bed, a more thorough exam was performed. She was then treated with fentanyl for pain. She is being hydrated with LR x2 L. Review of CBC noted a normal total WBC but a relative lymphopenia of 0.7. This is prompting testing for COVID-19 and influenza. Labs were obtained, reviewed, and interpreted by me in their entirety. CBC was unremarkable except for the relative lymphopenia noted. CMP was clinically unremarkable. Glucose was minimally elevated at 114 and calcium minimally elevated at 10.3. CRP was normal at 0.26. Lipase was normal. Serum test was negative. Urinalysis is pending. Patient had some refractory nausea and requested further pain medication. Phenergan 25 mg has been added to her second liter of LR. Progress Note #2: Time: 07:44 Progress Note Urinalysis was reviewed and was notable for 2+ leukocyte esterase, 2-5 WBC, and few bacteria. This may not represent true urinary tract infection in the context of repeated diarrhea. Progress Note #3: Time: 08:17 Progress Note Phenergan was given for refractory nausea. Symptoms have improved and she is more relaxed lying in the exam bed. All labs have now been reviewed. Influenza and COVID-19 swabs were negative. I have discussed the findings and my impression with the patient. Although her symptoms seem most consistent with a viral gastroenteritis, she does have exquisite tenderness in the right lower quadrant. This tenderness continues on repeat examination. She is also noted to have tenderness in the epigastrium. I discussed options with the patient which included conservative treatment of symptoms and close observation at home versus further evaluation with CT scan. Risks and benefits of CT scan were reviewed with the patient. Risks included cost, possible reaction to IV contrast, and radiation exposure that could increase risk of cancer later in life. Benefits included the ability to detect other possible urgent medical conditions such as appendicitis. I was leaning toward conservative treatment of symptoms with close observation at home. However, acknowledging risks and benefits, patient elected to proceed with CT scan. I am agreeable to further evaluation since patient expresses understanding of risks and benefits. She is concerned with 2 small kids at home and the severity of her illness that she could have something more serious that could impact her family and a diagnosis could be delayed without prompt CT imaging. Progress Note #4: Time: 10:[address] scan was viewed by me. I cannot identify any evidence of appendicitis or other inflammatory processes in the abdomen or pelvis. Lung olivo were clear. There was no free air. There was significant fluid content within the bowel but there is no evidence of bowel obstruction. Radiologist's report was also reviewed as noted below. Patient received additional treatment with Toradol and Protonix. See discharge instructions for further discussion. Diagnostic Imaging Diagonstic Imaging: CT Plain Films/CT/US/NM/MRI: abdomen, pelvis Comments NAME: FRANC[facility] DE [facility]AG[facility] REC#: [id number] PT STATUS: DEP ER : [id number] PHYSICIAN: RANJANA ARAUZ MD ADMIT DATE: 03/21/23/ER Signed Date of Exam:03/21/23 CT ABDOMEN/PELVIS W PROCEDURE: CT abdomen and pelvis with contrast. TECHNIQUE: Multiple contiguous axial images were obtained through the abdomen and pelvis after administration of intravenous contrast. Auto Exposure Controls were utilized during the CT exam to meet ALARA standards for radiation dose reduction. All CT scans use one or more of the following dose optimizing techniques: automated exposure control, MA and/or KvP adjustment based on patient size and exam type or iterative reconstruction. INDICATION: Nausea, vomiting, diarrhea, right-sided pain. Compared with study 03/11/2021. FINDINGS: While the appendix is never definitively visualized, I cannot see it on the prior exam either and there are no secondary findings to suggest underlying appendicitis. This patient has an increased fluid load throughout the small bowel as well as into the colon in keeping with the history of a diarrheal state and suggestive of nonspecific enterocolitis. No pericolonic or perienteric edema, stranding or focal bowel wall thickening. No abscess hematoma, acute fluid collection, fistula or perforation. There is no bowel obstruction. The retroflexed uterus, adnexa and urinary bladder appeared normal. There is no hydroureteronephrosis. The gallbladder surgically absent. The spleen, adrenals and pancreas negative. The liver appeared normal. The aortoiliac and mesenteric vessels patent and nonaneurysmal and nonacute. IMPRESSION: 1. Elevated intestinal fluid load within the small and large bowel likely a hypermobile and diarrheal state and raises the question of nonspecific enterocolitis. No significant bowel wall thickening, obstruction, abscess or perforation however. 2. No other significant abnormality or other change from prior. Dictated by: Dictated on workstation # [id number] Dict: 03/21/23 0924 Trans: 03/21/23 1121 CVB [id number] Interpreted by: JUAN FRANCISCO JEFFRIES Electronically signed by: JUAN FRANCISCO JEFFRIES 03/21/23 1121 Departure Impression Primary Impression: Nausea vomiting and diarrhea Additional Impressions: Gastroenteritis Epigastric pain Right lower quadrant pain Disposition: 01 HOME, SELF-CARE Condition: Improved Departure-Patient Inst. Decision time for Depature: 10:22 Referrals: J CARLOS LOO MD (PCP/Family) Primary Care Physician Patient Instructions: Abdominal Pain, Adult ED, Viral gastroenteritis in adults Add. Discharge Instructions: Adhere to a noncarbonated clear liquid diet for the next 24 hours. Start slow with ice chips and sips, and then gradually advance as symptoms allow. Tomorrow, you may gradually advance your diet with small quantities of bland food as tolerated if you are improving. Use Zofran (ondansetron) as prescribed for nausea or vomiting. Add Phenergan (promethazine) as prescribed as a backup medication for nausea and vomiting if needed. Please be advised that Phenergan may make you drowsy. Do not drive or operate machinery while on Phenergan. You may leave your scopolamine patch on for up to 3 days. Avoid touching it with your fingers. Scopolamine patches may cause dry mouth, blurry vision, or unequal pupil size. If you develop these symptoms and they are intolerable, remove the patch, wash your skin with soap and water, and wait a few hours for symptoms to resolve. Avoid using NSAID medications such as ibuprofen or naproxen as they may further irritate your stomach. Try using Tylenol (acetaminophen) up to 1000 mg every 6 hours as needed as an alternative. Use your antacid medication as prescribed until your symptoms have been resolved for a few days. Avoid dairy, oils, and fatty/greasy foods until your symptoms have been resolved for a few days. You may use Levsin (hyoscyamine) as prescribed for diarrhea and bowel cramping. You may use Imodium sparingly for diarrhea not well controlled with Levsin. Avoid overusing Imodium as this may rapidly convert your diarrhea into constipation. Return to the emergency room if you have worsening symptoms despite following these instructions. All discharge instructions reviewed with patient and/or family. Voiced understanding. Scripts Promethazine HCl (Promethazine Tablet) 25 Mg Tablet 25 MG PO Q6H PRN for NAUSEA/VOMITING-2ND LINE, #10 TAB Prov: RANJANA ARAUZ MD 03/21/23 Famotidine (Pepcid) 20 Mg Tablet 20 MG PO BID PRN for ABDOMINAL PAIN, #20 TAB Prov: RANJANA ARAUZ MD 03/21/23 Hyoscyamine Sulfate (Levsin-Sl) 0.125 Mg Tab.subl 1-2 TAB SL Q4H PRN for CRAMPS, #10 TAB 0 Refills For bowel cramping and diarrhea Prov: RANJANA ARAUZ MD 03/21/23 Ondansetron (Ondansetron Odt) 4 Mg Tab.rapdis 4 MG SL Q4H PRN for NAUSEA/VOMITING, #10 TAB Prov: RANJANA ARAUZ MD 03/21/23 Work/School Note: Work Release Form Date Seen in the Emergency Department: Mar 21, 2023 Return to Work: Mar 23, 2023 Restrictions: Return-No Fever (24hrs), Return-No Vomiting(24hrs) Copy Copies To 1: J CARLOS LOO MD, JOSHUA T MD Mar 21, 2023 07:35
[2023-03-21 07:39] LABS: COLOR,URINE YELLOW
[2023-03-21 07:40] LABS: BILIRUBIN,URINE NEGATIVE (NEGATIVE); CLARITY,URINE CLEAR; GLUCOSE, URINE (UA) NEGATIVE (NEGATIVE); KETONES,URINE NEGATIVE (NEGATIVE); LEUKOCYTE ESTERASE ,URINE 2+ (NEGATIVE); NITRITE,URINE NEGATIVE (NEGATIVE); PH,URINE 8.5 (5-9); PROTEIN,URINE NEGATIVE (NEGATIVE)
[2023-03-21 07:41] LABS: BACTERIA,URINE FEW /HPF; RBC,URINE RARE /HPF
[2023-03-21 07:50] LABS: EOSINOPHILS % (MANUAL) 1 %; LYMPHOCYTES % (MANUAL) 6 %; MONOCYTES % (MANUAL) 3 %; NEUTROPHILS % (MANUAL) 90 %
[2023-03-21 07:51] LABS: RBC MORPH NORMAL
[2023-03-21] MEDS ORDERED: SCOPOLAMINE 1.5 MG PATCH TD ONE (09:15)
[2023-03-21] MEDS ORDERED: HOLD METFORMIN - RECEIVED CONTRAST 20 ML VIAL IV SCH (09:30)
[2023-03-21] MEDS ORDERED: IOHEXOL 350 MG/ML 100 ML (OMNIPAQUE 350) VIAL IV ONE (09:30)
[2023-03-21] MEDS ORDERED: NS 100 ML (IVPB) BAG IV ONE (09:30)
--- NOTE | 2023-03-21 09:33 | Diagnostic Imaging Report ---
PROCEDURE: CT abdomen and pelvis with contrast. TECHNIQUE: Multiple contiguous axial images were obtained through the abdomen and pelvis after administration of intravenous contrast. Auto Exposure Controls were utilized during the CT exam to meet ALARA standards for radiation dose reduction. All CT scans use one or more of the following dose optimizing techniques: automated exposure control, MA and/or KvP adjustment based on patient size and exam type or iterative reconstruction. INDICATION: Nausea, vomiting, diarrhea, right-sided pain. Compared with study 03/11/2021. FINDINGS: While the appendix is never definitively visualized, I cannot see it on the prior exam either and there are no secondary findings to suggest underlying appendicitis. This patient has an increased fluid load throughout the small bowel as well as into the colon in keeping with the history of a diarrheal state and suggestive of nonspecific enterocolitis. No pericolonic or perienteric edema, stranding or focal bowel wall thickening. No abscess hematoma, acute fluid collection, fistula or perforation. There is no bowel obstruction. The retroflexed uterus, adnexa and urinary bladder appeared normal. There is no hydroureteronephrosis. The gallbladder surgically absent. The spleen, adrenals and pancreas negative. The liver appeared normal. The aortoiliac and mesenteric vessels patent and nonaneurysmal and nonacute. IMPRESSION: 1. Elevated intestinal fluid load within the small and large bowel likely a hypermobile and diarrheal state and raises the question of nonspecific enterocolitis. No significant bowel wall thickening, obstruction, abscess or perforation however. 2. No other significant abnormality or other change from prior. Dictated by: Dictated on workstation # [id number]
[2023-03-21] MEDS ORDERED: KETOROLAC INJ 30 MG/ML VIAL IVP ONE (10:00)
[2023-03-21] MEDS ORDERED: PANTOPRAZOLE 40 MG TABLET PO ONE (10:00)
[2023-03-21] MEDS ORDERED: FAMO-119 PO (10:31)
[2023-03-21] MEDS ORDERED: PROM25TA14 PO (10:31)
[2023-03-21] MEDS ORDERED: HYOS0.1283 SL (10:31)
[2023-03-21] MEDS ORDERED: ONDA4TAB11 SL (10:31)
[2023-03-21 10:45] VITALS: BP 118/72
== END 2023-03-21 10:45 | disposition home or self-care (01) ==
LOC: EDUNIT# 06:22 → ER 06:25
DX: K52.9 Noninfective gastroenteritis and colitis, unspecified (principal); Z20.822 Contact with and (suspected) exposure to COVID-19
CPT/HCPCS: 36415; 74177; 80053; 81000; 83690; 83735; 84703; 85007; 85027; 86141; 87077; 87088; 87636